=== PATIENT | female | born 1960 | race Caucasian/White ===

== ENCOUNTER 2016-07-24 08:56 | Inpatient (IN) | payer OTHER ==
[~2016-07-24] VITALS: Ht 170.2 cm; Wt 81.0 kg
[2016-07-24] VITALS (10 sets, daily range): BP systolic 96–137; BP diastolic 42–92; PULSE 90–120; RESP 16–20; O2SAT 90–99
[~2016-07-24 08:56] MED LIST: Rocuronium 10 mg/mL 5 mL Inj ONE
--- NOTE | 2016-07-24 09:03 | ED.REPORT ---
HPI-Stroke / CVA Jul 24, 2016 ED Provider: Peggy Alvarez MD This is a 56 year old female with a history of anxiety, chronic back pain, and arthritis presenting to the emergency department via EMS due to gradual onset of decreased level of consciousness that began 24 hours ago. Spouse reports that patient has been "slower" recently and was stumbling to walk which began yesterday morning. Yesterday morning, she went to the restroom and sustained a ground level fall while striking head. This was followed by episodes of urinary incontinence yesterday which is abnormal, per spouse. She was not communicating normally with him today. Pt had increasingly decreased level of consciousness today, her spouse then called emergency services. En route, pt was tachycardic at a rate of 110 and blood sugar 117. PCP Dr. Eli. On further discussion with pt's children present in the room at 11:08, they indicate that one of her sons is a drug dealer and that it is very well possible that the patient has been using illicit drugs recently. They are concerned that mom may have overdosed today and drug use is not a surprise to them at this time, particularly since the patient exhibits frequent episodes of decreased level of consciousness that is associated with "twitching." They add that she often takes excessive amounts of her prescribed gabapentin, she at times takes 3600 mg gabapentin at one time, and takes that dose a number of times a day. Nursing Notes Stated Complaint: DECREASED LOC Chief Complaint: Critical Care/Intubated Nursing Notes Reviewed: Yes Allergies: Coded Allergies: No Known Allergies (Verified , 04/12/06) Scheduled Clonidine (Clonidine) 0.3 Mg Tablet 0.3 MG PO TID (Reported) Gabapentin (Gabapentin) 600 Mg Tablet 1,800 MG PO HS (Reported) Ketoconazole (Ketoconazole) 15 Gm Cream..g. 15 GM TP BID (Reported) Meloxicam (Meloxicam) 15 Mg Tablet 15 MG PO DAILY (Reported) Terbinafine (Lamisil) 250 Mg Tablet 250 MG PO DAILY (Reported) Triamcinolone Acet (Triamcinolone Acetonide Cream) 1 Applic/0.25 Gm Cr 1 APPLIC EXT BID (Reported) Triamterene/HCTZ 37.5-25 mg (Triamterene/HCTZ 37.5-25 mg) 1 Each Capsule 1 CAPSULE PO DAILY (Reported) Venlafaxine (Venlafaxine) 75 Mg Tablet 75 MG PO BID (Reported) Scheduled PRN Cyclobenzaprine (Cyclobenzaprine) 10 Mg Tablet 10 MG PO HS PRN PRN Spasm ( Reported) Ibuprofen (Ibuprofen) 200 Mg Capsule 200 MG PO DAILY PRN PRN For Pain (Reported ) General Time Seen by Provider: 09:00 Chief Complaint Mental status change Hx Obtained From: Patient Arrived By: Ambulance Time last known well Unknown Sudden in Onset?: Yes Symptom Duration: Since onset Progression Since Onset: Gradually worsening Pertinent Negative: Pt denies other symptoms Recent Healthcare: No recent doctor visit, No recent hospitalization Similar Sx Previous: No Risk Factors Risk Notes: Increasing weakness in the last couple of hours followed by a ground level fall and striking head. Onset of symptoms is unclear, not a TPA candidate at this time. )( TPA Administration/Criteria Stroke Thrombolytic Therapy : TPA Considered: Yes Neurologist Contacted: No TPA Administered Intravenously: No, not indicated Exclusion Criteria: Sig head trauma / 90 days [place] Coma Score > Age 5 Eye Opening: Open to verbal (3) Verbal Response: Confused (4) Motor Response: Obeys commands (6) [place] Coma Score: 13 Past Medical History Past Medical History Anxiety Arthritis Chronic back pain Ambulatory Status Independent Review of Systems Unable to Obtain ROS Patient condition (ROS limited) Constitutional: Denies: Chills, Fever GI: Denies: Abdominal pain, Nausea, Vomiting Neurologic: Reports: Bladder dysfunction, Change LOC, Denies: Headache Physical Exam Initial Vital Signs Vital Signs (First) Date Time Temp Pulse Resp B/P Pulse Ox O2 Delivery O2 Flow Rate FiO2 07/24/16 09:02 38.2 105 18 109/51 90 Nasal Cannula 6 - Initial VS: Reviewed Alertness: Positive: Responds to pain stimuli Acutely ill appearing Head / Eyes: Normocephalic Neck: No meningismus, Full range of motion Neck Vascular: Positive: JVD mild (to about 6 cm ) Respiratory / Chest: Breath sounds NL, Breath sounds = bilat, No respiratory distress, No rales, No rhonchi, No wheezing Heart Rate / Rhythm: Positive: Tachycardia Heart Sounds / Murmur: Positive: Systolic murmur present.. (III/) Mental Status: Positive: Responds to painful stim Decreased mental status - GCS 13 Abdomen: Soft Significant pain affect behavior when palpated along left side and LLQ, not in CVA area on either side. Lower Extremity / Pelvis / MS: Vascular intact Bruising to lower right leg that appear 1-2 days old. Skin: Warm, Dry Hyperdynamic. Scatterred bruises in various stages to arms. No track torres. Back: Inspection NL No skin break down on back or buttocks Rectum / Perineum: No gross blood, No discharge Soft brown stool Guaiac positive Interpretation & Diagnostics Interpretation & Diagnostics: Urine dip + methamphetamine + opiates + methadone + amphetamines Blood Gas Report pH 7.147 pCO2 37 pO2 85.7 cHCO3 12.2 cBase -15.[address] IMPRESSION: 1. No acute intracranial disease process. 2. Complete opacification of the right maxillary sinus which could be inflammatory or neoplastic. Dictated by: Sheyla Chinchilla MD, PhD on 07/24/2016 at 9:18 Approved by: Sheyla Chinchilla MD, PhD on 07/24/2016 at 9:22 ABDOMEN/PELVIS CT IMPRESSION: 1. Severe bilateral lower lobe pneumonia. 2. Distended distal small bowel loops, suggestive of gastroenteritis. 3. Thickening of the transverse, descending, and sigmoid colon, with differential considerations including ischemia, infection, and inflammation. 4. Fecal impaction within the rectum. 5. Proctitis. 6. Normal appendix. 7. Findings suggestive of pancreatitis; recommend correlation with laboratory testing. 8. Nonobstructing left nephrolith. 9. Moderately distended gallbladder. If there is clinical evidence for cholecystitis, ultrasound is recommended for further assessment. Dictated by: Ambreen Patel M.D. on 07/24/2016 at 11:04 Approved by: Ambreen Patel M.D. on 07/24/2016 at 11:11 CHEST X-RAY IMPRESSION: Suspect bilateral lower lobe pneumonia. Dictated by: Ana Cristina Manjarrez M.D. on 07/24/2016 at 11:00 Approved by: Ana Cristina Manjarrez M.D. on 07/24/2016 at 11:02 Lab Results Interpretation Result Diagram: 07/25/16 0520 07/25/16 0520 Test 07/24/16 09:00 07/24/16 09:30 07/24/16 10:39 Pro-B-Type Natriuretic Peptide 4866pg/mL (0-249) Lipase 1274U/L (13-60) Procalcitonin 3.32ng/mL (0.00-0.08) Salicylates Level < 3.0ug/mL (30-250) Acetaminophen Level < 15.0ug/mL Rx (10-25) Alcohols < 10mg/dL (0-10) Urine Color Dark yellow (YELLOW) Urine Appearance Clear (CLEAR,HAZY) Urine pH 5.0 (5.0-8.0) Urine Specific Rhine 1.030 (1.003-1.035) Urine Protein 30mg/dL (NEG,TRACE) Urine Glucose (UA) Negativemg/dL (NEGATIVE) Urine Ketones Negativemg/dL (NEGATIVE) Urine Occult Blood Small (NEGATIVE) Urine Nitrite Negative (NEGATIVE) Urine Bilirubin Negative (NEGATIVE) Urine Urobilinogen Normalmg/dL (NORMAL) Urine Leukocyte Esterase Negative (NEGATIVE) Urine RBC 0-2/hpf (0-2) Urine WBC 0-5/hpf (0-5) Urine Epithelial Cells Occasional/hpf (NONE-MOD) Urine Crystals Amorphous urates (NONE Urine Bacteria Few/hpf (NONE-FEW) Urine Hyaline Casts None/lpf (NONE) Urine Granular Casts None seen (NONE SEEN) Urine Waxy Casts None seen (NONE SEEN) Urine Red Blood Cell Casts None seen (NONE SEEN) Urine White Blood Cell Casts None seen (NONE SEEN) Urine Mucus None seen (None Seen) Urine Trichomonas None seen (NONE SEEN) Urine Yeast None (NONE SEEN) Urinalysis Comment None Urine Culture Reflexed Not indicated Urine Random Creatinine 255mg/dL (15-278) Urine Random Total Protein 97mg/dL (0-15) Urine Random Sodium 58mEq/L Lactic Acid Level 1.3mmol/L (0.4-2.0) CSF Appearance Clear (CLEAR) CSF Color Colorless (COLORLESS) CSF WBC 0/mm3 (0-5) CSF RBC 92/mm3 CSF Mononuclear WBCs % CSF Polynuclear WBCs % CSF Other Cells CSF Glucose 67mg/dL (45-90) CSF Total Protein 40mg/dL (15-45) ECG Interpretation ECG Interpretation: Sinus tachycardia at a rate of 110 In light of potassium of 7.7, no peaked t-waves, no wided QRS Time: 09:37 Interpreted by: ED physician Procedures Central Line Placement Central Line Placement Note: Central line appropriately placed on x-ray. No pneumothorax Time: 10:06 Procedure Performed by: ED physician Consent / Setup / Site Prep: No consent - emergent, Oxygen administered, Pulse oximeter applied, backend developer applied, Hand hygiene observed, Standard surgical scrub, Max barrier precaution, Sterile drapes applied, Position Trendelenburg Side / Location / Ultrasound: Ultrasound assisted Post-Procedure / Complications: Antibiotic oint applied, Dressing placed, Condition improved, Tolerated procedure well, Patient stable Lumbar Puncture Text / Dict Note: Opening presure 24 mm water Grossly bloody tap with repositioning, obviously CSF By tube 4 the CSF is completely clear Time: 09:54 Procedure Performed by: ED physician Consent / Setup / Site Prep: No consent - emergent, Hand hygiene observed, Stand sterile technique, Sterile drapes applied Skin Preparation Agent: Betadine Post-Procedure / Complications: Antibiotic oint applied, Dressing applied, No complications, Tolerated procedure well, Patient stable Re-Eval/Medical Decision Med Decision/Clinical Course Presents after at least 24 hours of increasing weakness and altered mental status. This morning was so altered that her felt was appropriate for her to go to the hospital despite saying she did not want to. She fell yesterday and hit her head in the bathroom. Was initially called as a code stroke, clearly not an acute ischemic stroke. Initial concern was for severe sepsis. Fluids antibiotics lines cultures etc. all ordered. CT scan of the brain shows no acute masses bleeds or strokes. Does suggest right maxillary complete opacification could be a source of her sepsis, lumbar puncture is done. On physical exam she does not note any pain when asked directly however she groans with pain with palpation of the left lower quadrant. CT scan of the abdomen will be ordered. Antibiotics started in the form of Zosyn ceftriaxone and azithromycin. Labs returned with acute renal failure and hyperkalemia at 7.7. At this point she is beginning to have runs of SVT with concern for runs of V. tach. Also remains quite hyporeflexive and strong concern for possibility of seizure. 2 mg of Ativan is at the bedside in case and Keppra 1500 mg is given IV. The acute hyperkalemia she is given 10 units of insulin an amp of D50 and amp of calcium chloride 2 A of bicarbonate. Clearly has a metabolic acidosis on her ABG so a bicarbonate drip is also started. Blood pressure is currently stable in the 124/70 range. Intermittent sinus tachycardia at 100 going up to a supraventricular with concerns for actual V. tach up into the 200 range. She is loaded with 150 of IV amiodarone. By the fifth liter of fluid we will switch from normal saline to LR. She is making only small amounts of urine was sent to the lab and does not show any evidence of infection. Urine tox does suggest opiates and methamphetamine. CK has been ordered to see if rhabdomyolysis might be the cause of her acute renal failure. At this point we will continue to aggressively treat severe sepsis source unclear. Central line has been placed. Elevated potassium, given insulin, glucose, calcium, bicarb Re-Evaluation/Progress #1: Time of Eval: 09:38 Re-Evaluation/Progress Note: Discussed patient care with spouse who is now present in the room. Discussed need for admission, all questions addressed. Re-Evaluation/Progress #2: Time of Eval: 09:54 Re-Evaluation/Progress Note: Lumbar puncture procedure Re-Evaluation/Progress #3: Time of Eval: 10:06 Re-Evaluation/Progress Note: Central line procedure Re-Evaluation/Progress #4: Time of Eval: 11:02 Re-Evaluation/Progress Note: Discussed patient care with family members now present in the room. Consultation #1: Referral / Consult Name: Bobby Cope DO Consulted With: Nephrology Call Returned at: 10:15 Note: Consulted on use of IV contrast for abd CT. He recommends against IV contrast at this time. Consultation #2: Referral / Consult Name: Maria Luisa Jauregui MD Consulted With: Nephrology Call Returned at: 10:52 Support Services Specialist: Will see patient, Agrees with eval, Agrees with plan Note: Will consult and requests renal ultrasound Consultation #3: Referral / Consult Name: Al Del Rosario MD Consulted With: Hospitalist Call Returned at: 10:53 Support Services Specialist: Accepts admit Consultation #4: Call Returned at: 11:14 Note: Consult with toxicology, do not expect severe toxicity, mostly sedeation even with chronic overdoses Counseled Regarding: Diagnosis, Lab results, Need for follow-up, Need for admission Patient Discharge & Departure Impression: Primary Impression: Severe sepsis Additional Impressions: Hyperkalemia Acute renal failure Acute renal failure type: unspecified Qualified Code: N17.9 - Acute kidney failure, unspecified Cardiac arrhythmia Arrhythmia type: ventricular tachycardia Qualified Code: I47.2 - Ventricular tachycardia GI bleed GI bleed type/associated pathology: unspecified gastrointestinal hemorrhage type Qualified Code: K92.2 - Gastrointestinal hemorrhage, unspecified Disposition: ADMITTED TO HOSPITAL Discharge Condition All VS Reviewed: Yes Condition: Stable Referrals: James Eli MD (PCP) Alyssa Duarte MD (Family) Crit Care Except Billable Proc Time Spent: 30-74 minutes Services Performed: Patient management by me, Time spent at bedside, Reviewing test results, Reviewing imaging, Discussing patient care, Documentation in record, Time with fam/surrogate Scribe Attestation Portions of this note were transcribed by Therese Gilman. I, Dr. Alavrez personally performed the history, physical exam and medical decision-making; I reviewed and confirmed the accuracy of the information in the transcribed note. Signed by: niesha Chaudhary. 07/24/2016, 18:00. copies to: James Eli MD, Shawna L MD Jul 24, 2016 09:03 THERESE GILMAN Jul 24, 2016 09:10 Procedure Performed by: ED physician Consent / Setup / Site Prep: No consent - emergent, Hand hygiene observed, Stand sterile technique, Sterile drapes applied Skin Preparation Agent: Betadine Post-Procedure / Complications: Antibiotic oint applied, Dressing applied, No complications, Tolerated procedure well, Patient stable Re-Eval/Medical Decision Med Decision/Clinical Course Presents after at least 24 hours of increasing weakness and altered mental status. This morning was so altered that her felt was appropriate for her to go to the hospital despite saying she did not want to. She fell yesterday and hit her head in the bathroom. Was initially called as a code stroke, clearly not an acute ischemic stroke. Initial concern was for severe sepsis. Fluids antibiotics lines cultures etc. all ordered. CT scan of the brain shows no acute masses bleeds or strokes. Does suggest right maxillary complete opacification could be a source of her sepsis, lumbar puncture is done. On physical exam she does not note any pain when asked directly however she groans with pain with palpation of the left lower quadrant. CT scan of the abdomen will be ordered. Antibiotics started in the form of Zosyn ceftriaxone and azithromycin. Labs returned with acute renal failure and hyperkalemia at 7.7. At this point she is beginning to have runs of SVT with concern for runs of V. tach. Also remains quite hyporeflexive and strong concern for possibility of seizure. 2 mg of Ativan is at the bedside in case and Keppra 1500 mg is given IV. The acute hyperkalemia she is given 10 units of insulin an amp of D50 and amp of calcium chloride 2 A of bicarbonate. Clearly has a metabolic acidosis on her ABG so a bicarbonate drip is also started. Blood pressure is currently stable in the 124/70 range. Intermittent sinus tachycardia at 100 going up to a supraventricular with concerns for actual V. tach up into the 200 range. She is loaded with 150 of IV amiodarone. By the fifth liter of fluid we will switch from normal saline to LR. She is making only small amounts of urine was sent to the lab and does not show any evidence of infection. Urine tox does suggest opiates and methamphetamine. CK has been ordered to see if rhabdomyolysis might be the cause of her acute renal failure. At this point we will continue to aggressively treat severe sepsis source unclear. Central line has been placed. Elevated potassium, given insulin, glucose, calcium, bicarb Re-Evaluation/Progress #1: Time of Eval: 09:38 Re-Evaluation/Progress Note: Discussed patient care with spouse who is now present in the room. Discussed need for admission, all questions addressed. Re-Evaluation/Progress #2: Time of Eval: 09:54 Re-Evaluation/Progress Note: Lumbar puncture procedure Re-Evaluation/Progress #3: Time of Eval: 10:06 Re-Evaluation/Progress Note: Central line procedure Re-Evaluation/Progress #4: Time of Eval: 11:02 Re-Evaluation/Progress Note: Discussed patient care with family members now present in the room. Consultation #1: Referral / Consult Name: Bobby Cope DO Consulted With: Nephrology Call Returned at: 10:15 Note: Consulted on use of IV contrast for abd CT. He recommends against IV contrast at this time. Consultation #2: Referral / Consult Name: Maria Luisa Jauregui MD Consulted With: Nephrology Call Returned at: 10:52 Support Services Specialist: Will see patient, Agrees with eval, Agrees with plan Note: Will consult and requests renal ultrasound Consultation #3: Referral / Consult Name: Al Del Rosario MD Consulted With: Hospitalist Call Returned at: 10:53 Support Services Specialist: Accepts admit Consultation #4: Call Returned at: 11:14 Note: Consult with toxicology, do not expect severe toxicity, mostly sedeation even with chronic overdoses Counseled Regarding: Diagnosis, Lab results, Need for follow-up, Need for admission Patient Discharge & Departure Impression: Primary Impression: Severe sepsis Additional Impressions: Hyperkalemia Acute renal failure Acute renal failure type: unspecified Qualified Code: N17.9 - Acute kidney failure, unspecified Cardiac arrhythmia Arrhythmia type: ventricular tachycardia Qualified Code: I47.2 - Ventricular tachycardia GI bleed GI bleed type/associated pathology: unspecified gastrointestinal hemorrhage type Qualified Code: K92.2 - Gastrointestinal hemorrhage, unspecified Disposition: ADMITTED TO HOSPITAL Discharge Condition All VS Reviewed: Yes Condition: Stable Referrals: James Eli MD (PCP) Alyssa Duarte MD (Family) Crit Care Except Billable Proc Time Spent: 30-74 minutes Services Performed: Patient management by me, Time spent at bedside, Reviewing test results, Reviewing imaging, Discussing patient care, Documentation in record, Time with fam/surrogate Scribe Attestation Portions of this note were transcribed by Therese Gilman. I, Dr. Alvarez personally performed the history, physical exam and medical decision-making; I reviewed and confirmed the accuracy of the information in the transcribed note. Signed by: niesha Chaudhary. 07/24/2016, 18:00. copies to: James Eli MD, Shawna L MD Jul 24, 2016 09:03 THERESE GILMAN Jul 24, 2016 09:10
[2016-07-24] MEDS ORDERED: 0.9% Sodium Chloride 1,000 ML IV ONE ×3 (09:06→17:30)
[2016-07-24 09:10] LABS: BASOPHILS % (AUTO) 0.1 % (0-3); EOSINOPHILS % (AUTO) 0 % (0-5); Mean Corpuscular Hemoglobin 31.8 pg (27.0-35.0); Mean Corpuscular Volume 93.3 fL (81-100); NEUTROPHILS % (AUTO) 85.8 % (40-74); Platelet Count 224 bil/L (150-400)
[2016-07-24] MEDS ORDERED: Azithromycin Inj 500 MG in Dextrose 5% w/Vial Mate 250 ML IV ONE (09:10)
[2016-07-24] MEDS ORDERED: cefTRIAXone Inj 2,000 MG in Dextrose 5% Minibag Plus 50 ML IV ONE (09:10)
--- NOTE | 2016-07-24 09:24 | DRSVH ---
PROCEDURE: CT BRAIN WITHOUT CONTRAST ([id number]) INDICATIONS: Decreased level of consciousness. TECHNIQUE: Noncontrast 4.5 mm thick angled axial sections acquired from the foramen magnum to the vertex, with c oronal reformats. COMPARISON: None. FINDINGS: Image quality: Excellent. CSF spaces: Basal cisterns are patent. No extra-axial fluid collections. Ventricles are normal in size and shape. Brain: No midline shift. No intracranial masses or hemorrhage. Styles-white matter interface is norm al. Multiple dural calcifications are incidentally noted. Skull and face: Calvarium and visualized facial bones are intact, without suspicious lesions. Sinuses: The right maxillary sinus is completely opacified.. IMPRESSION: 1. No acute intracranial disease process. 2. Complete opacification of the right maxillary sinus which could be inflammatory or neoplastic. Dictated by: Sheyla Chinchilla MD, PhD on 07/24/2016 at 9:18 Approved by: Sheyla Chinchilla MD, PhD on 07/24/2016 at 9:22
--- NOTE | 2016-07-24 09:36 | ABG ---
DateTimeAnalyzed 09:32:00 -_ pH ____7.147 - 7.350 7.450 pCO2 ___36.7__ -mmHg 35.0 45.0 pO2 ___85.7__ -mmHg 69.0 116 HCO3- ___12.2__ -mmol/L 22.0 26.0 ABE __-15.6__ -mmol/L -2.0 2.0 tHb ___10.2__ -g/dL O2Hb ___92.1__ -% COHb ____0.7__ -% MetHb ____1.4__ -% sO2 ___94.1__ -% FIO2 ___36.0__ -% Drawn By jmw - Date/Time Notified____ 09:35:00 -_ Liter_Flow ____4.0__ -L/min Oxygen Device 1 __CANNULA - Notified By jmw - Notified Whom DR LAURSEN - B 758 -mmHg tO2 ___13.4__ -Vol% Saw test _Positive -
[2016-07-24] MEDS ORDERED: Piperacillin-Tazo 3.375 Gm Inj 3.375 GM in Dextrose 5% Minibag Plus 50 ML IV ONE (09:50)
[2016-07-24] MEDS ORDERED: Sodium Bicarb (50 mEq) 8.4% 1 mEq/mL 50 mL Syringe ONE (10:02)
[2016-07-24 10:03] LABS: APPEARANCE,URINE CLEAR (CLEAR,HAZY); COLOR,URINE DARK YELLOW (YELLOW)
[2016-07-24 10:04] LABS: OCCULT BLOOD,URINE SMALL (NEGATIVE); UROBILINOGEN,URINE NORMAL (NORMAL)
[2016-07-24] MEDS ORDERED: Insulin Human REGular-Omnicell 100 Unit/mL ONE (10:04)
[2016-07-24] MEDS ORDERED: Calcium Chl 10% 1 Gm/10 mL Syringe ONE (10:05)
[2016-07-24] MEDS ORDERED: Sodium Bicarb (50 mEq) 8.4% 1 mEq/mL 50 mL Syringe IVPUSH ONE (10:10)
[2016-07-24] MEDS ORDERED: Calcium Chloride 10% (Gm) 1 Gm/10 mL Inj IVPUSH PRN (10:10)
[2016-07-24] MEDS ORDERED: Insulin Human REGular-Omnicell 100 Unit/mL IV ONE (10:10)
[2016-07-24] MEDS ORDERED: Sodium Bicarb 8.4% Inj 150 MEQ in Dextrose 5% 1,000 ML IV ONE (10:25)
[2016-07-24] MEDS ORDERED: levETIRAcetam Inj 1,500 MG in 0.9% Sodium Chloride 100 ML IV ONE (10:25)
[2016-07-24 10:48] LABS: Magnesium 3.3 mg/dL (1.6-2.6)
--- NOTE | 2016-07-24 11:04 | DRSVH ---
PROCEDURE: X-RAY CHEST ONE VIEW, PORTABLE ([id number]) INDICATIONS: dec LOC TECHNIQUE: One view of the chest was acquired. COMPARISON: [facility], CT, CT CHEST W CONTRAST, 11/09/2015, 2:58 PM. [facility], CR, XR CHEST 2VW, 10/02/2015, 16:17. FINDINGS: Surgical changes and devices: None. Lungs and pleura: Bilateral lower lobe infiltrates suspicious for pneumonia. No pleural effusions or pneumothorax. Mediastinum: Mediastinal contours appear normal. Heart size is normal. Bones and chest wall: No suspicious bony lesions. Overlying soft tissues appear unremarkable. IMPRESSION: Suspect bilateral lower lobe pneumonia. Dictated by: Ana Cristina Manjarrez M.D. on 07/24/2016 at 11:00 Approved by: Ana Cristina Manjarrez M.D. on 07/24/2016 at 11:02
[2016-07-24 11:07] LABS: APPEARANCE,CSF CLEAR (CLEAR); COLOR,CSF COLORLESS (COLORLESS); WHITE BLOOD CELL,CSF 0 /mm3 (0-5)
--- NOTE | 2016-07-24 11:13 | DRSVH ---
PROCEDURE: CT ABDOMEN AND PELVIS WITHOUT CONTRAST ([id number]) INDICATIONS: sepsis, Right side belly pain TECHNIQUE: Noncontrast 5 mm thick sections acquired from the diaphragms to the symphysis. 5 mm coronal and sagi ttal reformats were then performed. For radiation dose reduction, the following was used: automated exposure control, adjustment of mA and/or kV according to patient size. COMPARISON: None. FINDINGS: Image quality: Partially degraded by motion artifact. ABDOMEN: Lung bases: Severer deep and bilateral lower lobe air space opacity is present. Solid organs: Liver and spleen are normal in size. Gallbladder is moderately distended. Pancreatic tail appears ill-defined with surrounding fat stranding, suggestive of pancreatitis. No adrenal nodul es. Kidneys are normal in size, without hydronephrosis. There is a nonobstructing 5 mm diameter calc ulus within the left interpolar kidney. Peritoneum and bowel: Stoma is nondistended. There are several moderately distended loops of mid and distal small bowel. There appears to be thickening of the distal transverse colon, splenic flexure, descending, and proximal sigmoid colon. Mild fat stranding surrounds the descending colon. There is a large amount of stool within the rectum. Mild thickening of the rectum. Moderate fat stranding withi n the perirectal mesocolon. No free fluid or air. High density material within the appendix is prese nt. Nodes and vessels: No retroperitoneal or mesenteric adenopathy by size criteria. Aorta and inferior vena cava are normal in caliber. Miscellaneous: No ventral hernias. PELVIS: Genitourinary: A Griffin catheter is present within the urinary bladder. Miscellaneous: No inguinal hernias or adenopathy. Bones: No suspicious bony lesions. No vertebral body compression fractures. IMPRESSION: 1. Severe bilateral lower lobe pneumonia. 2. Distended distal small bowel loops, suggestive of gastroenteritis. 3. Thickening of the transverse, descending, and sigmoid colon, with differential considerations incl uding ischemia, infection, and inflammation. 4. Fecal impaction within the rectum. 5. Proctitis. 6. Normal appendix. 7. Findings suggestive of pancreatitis; recommend correlation with laboratory testing. 8. Nonobstructing left nephrolith. 9. Moderately distended gallbladder. If there is clinical evidence for cholecystitis, ultrasound is r ecommended for further assessment. Dictated by: Ambreen Patel M.D. on 07/24/2016 at 11:04 Approved by: Ambreen Patel M.D. on 07/24/2016 at 11:11
[2016-07-24] MEDS ORDERED: Ondansetron 2 mg/mL 2 mL Inj IVPUSH PRN (11:35)
[2016-07-24] MEDS: 0.9% Sodium Chloride 1,000 ML IV SCH (12:23)
[2016-07-24] MEDS: Norepineph 8,000 mCg/250 mL NS 8,000 MCG in IV Premix 1 EACH IV SCH (13:18)
--- NOTE | 2016-07-24 13:25 | PCM.HPMED ---
Subjective Date of Service Jul 24, 2016 Primary Provider: Admitting Physician: Al Del Rosario MD Primary Care Physician: James Eli MD Attending Physician: Al Del Rosario MD Chief Complaint: Altered mental status History of Present Illness: Patient is a 56 year old female with a history of HTN, anxiety and osteoarthritis with chronic narcotic use. She presented to [facility] on 07/24/16 via EMS from home. Patient is obtunded at time of H&P so history is collected from the patient's and daughter. Patient was noted to not be herself starting Sunday (07/21/16) by both her and her daughter. The daughter stated she talked to the patient on the phone and she was confused and slurring her words. The reports that the patient has been stressed out at home because they are moving. She has been doing a lot of packing and preparing for a garage sale. Sunday morning was going to be the garage sale and her got her up to prepare and a short time later found her slumped over in the shower. He put her back to bed and she slept the rest of the day. She was awake somewhat on Sunday morning but was not talking right and seemed confused. When she slept she sounded as though she were wheezing and was snoring quite loudly. When she was not improved Sunday morning, the called 911. She has not had any of her regular meds since Sunday. She has not had any food or drink since Sunday. Prior to Sunday she is reported to have been in her usual state of health. The patient's works nights and is unaware of her activities of late. The patient's daughter reports that the patient likes to get high. The patient has been abusing her gabapentin which makes her speech slurred, she becomes tremulous and is unsteady on her feet, and she gets confused. There is also reported heroin use and it seems like she may be obtaining the illegal drugs from her son who is a known drug dealer. She also may be consuming at least a bottle of wine on a daily basis. In the ED the patient is febrile (38.2) with a heart rate of 105, respiratory rate 18, blood pressure 109/51 and O2 saturation of 90% on 6L. Labs are remarkable for WBC 11.1, potassium 7.7, bicarb 12, BUN 143, creatinine 11, magnesium 3.3, procalcitonin 3.3, lipase 1274, CPK 1947. ABG showed pH 7.14, pCO2 36.7, pO2 85.7, HCO3 12.2. Central line was placed and fluid resuscitation started. Case discussed with Dr. Alvarez and patient admitted to ICU for further management of this critical illness. Review of Systems: Complete ROS could not be obtained as the patient was too obtunded to give an accurate history. Allergies Coded Allergies: No Known Allergies (Verified , 04/12/06) Home Medications From [facility] in [place] dated 07/24/16: Ketoconazole 2% topical cream applied BID to affected toenails Clonidine 0.3 mg TID Triamterene-HCTZ 37.5/25 mg daily Gabapentin 1800 mg HS Meloxicam 15 mg daily Venlafaxine 75 mg BID Lamisil 250 mg daily Triamcinolone 0.1% topical cream applied BID to affected skin Cyclobenzaprine 10 mg HS PRN spasm Ibuprofen 200mg PRN pain PMH Depression with anxiety Hypertension Chronic pain in right hip, right foot, and other joints throughout the body with past opiate habituation Degenerative disc disease - L5 HNP facet arthritis with neurocompression Thyroid nodules Toenail fungus Allergic rhinitis Surgical History Right bunionectomy - 2005 Family History Mother of complications of an unknown liver disease No known family history of kidney disease Social History Hx Alcohol Use: Yes (Bottle of wine daily) Hx Substance Use: Yes (Heroin, gabapentin) Hx Tobacco Use: No Smoking Status: Never Smoker Living Arrangement: with Family Exam Vital Signs Vital Sign - Last Date Time Temp Pulse Resp B/P Pulse Ox O2 Delivery O2 Flow Rate FiO2 07/24/16 12:12 38.2 90 19 113/54 94 Nasal Cannula 4 Exam Obtunded, laying in ICU bed snoring with nasal cannula in place Head atraumatic, normocephalic Mucus membranes dry, no oral thrush observed No cervical lymphadenopathy, neck supple, nontender, right IJ in place No JVD noted Cardiac tones tachycardic with regular rhythm and no murmur appreciated Lungs coarse sounding throughout with expiratory wheezes heard anteriorly No abdominal tenderness, non-distended, hypoactive bowel tones, soft Griffin present Radial pulses normal and equivalent bilaterally, dorsalis pedis pulses normal and equivalent bilaterally No cyanosis, clubbing or edema No ulcerations/open wounds; bruising noted on the lower extremities Neurological status could not be evaluated as patient obtunded Psychiatric status could not be evaluated as patient obtunded Lab and Diagnostics Result Diagram: 07/24/16 0900 07/24/16 0900 X-Rays, CTs and MRIs PROCEDURE: CT ABDOMEN AND PELVIS WITHOUT CONTRAST IMPRESSION: 1. Severe bilateral lower lobe pneumonia. 2. Distended distal small bowel loops, suggestive of gastroenteritis. 3. Thickening of the transverse, descending, and sigmoid colon, with differential considerations including ischemia, infection, and inflammation. 4. Fecal impaction within the rectum. 5. Proctitis. 6. Normal appendix. 7. Findings suggestive of pancreatitis; recommend correlation with laboratory testing. 8. Nonobstructing left nephrolith. 9. Moderately distended gallbladder. If there is clinical evidence for cholecystitis, ultrasound is recommended for further assessment. Dictated by: Ambreen Patel M.D. on 07/24/2016 at 11:04 PROCEDURE: CT BRAIN WITHOUT CONTRAST IMPRESSION: 1. No acute intracranial disease process. 2. Complete opacification of the right maxillary sinus which could be inflammatory or neoplastic. Dictated by: Sheyla Chinchilla MD, PhD on 07/24/2016 at 9:18 PROCEDURE: X-RAY CHEST ONE VIEW, PORTABLE IMPRESSION: Suspect bilateral lower lobe pneumonia. Dictated by: Ana Cristina Manjarrez M.D. on 07/24/2016 at 11:00 12-lead ECG Rate 110 QTc 433 Sinus tachycardia with no acute ischemic changes Assessment & Plan Patient is a 56 year old female with a history of HTN, anxiety and osteoarthritis with chronic narcotic use. She presented to [facility] on 07/24/16 via EMS with altered mental status. Found to have hyperkalemia, pneumonia and an significant kidney injury. Admitted for management of her numerous co- existing conditions to the ICU for what is likely to be a prolonged hospital admission. 1. Severe sepsis, acute, present on admission. - Criteria met: tachycardia (105), fever (38.2), respiratory and possibly GI source, RADHA and encephalopathy and hypotension. - Fluid resuscitation given in the ED. Will continue NS 50 ml/hr as well as a bicarb drip at 100 ml/hr. - Norepinephrine to be used to maintain a MAP >65. - Treat the underlying infections as below. - Continue to monitor CBC, procalcitonin. - Limited echo ordered to evaluate left ventricular function in the setting of this critical illness. 2. Bilateral pneumonia, acute, present on admission. - Zosyn and azithromycin started in the ED. Will continue those at this time ( day 1 of antibiotics). - Viral PCR panel ordered and pending. - Strep pneumo and legionella urine antigens ordered and pending. - Sputum culture ordered and pending. May need to ask respiratory therapy to suction a good sputum sample. - MRSA screening ordered and pending. - O2 supplementation to keep O2 saturations 92-96%. - DuoNeb available QID. Albuterol neb available Q2 PRN. - Low threshold for intubation due to concerns that patient cannot adequately protect her airway. 3. Acute kidney injury, present on admission. - IV fluids initiated in the ED. Continue as above in #1. - Ethylene glycol and methanol levels are ordered and pending. - Dr. Jeff of nephrology has been consulted and we appreciate her input. - Continue to monitor BMP. 4. Hyperkalemia, acute, present on admission. - Patient received insulin and glucose, albuterol, calcium gluconate, sodium bicarb in the ED with improvement on repeat BMP. - Will continue to monitor BMP and correct as needed. 5. Pancreatitis, acute, present on admission. - BISAP score of 4 conferring >15% risk of mortality. VENETIE IRA-II score 19 with and 11-18% risk of mortality. - IV fluids as above. - Patient NPO. 6. Metabolic and toxic encephalopathy, acute, present on admission. - Concern for toxic ingestion as patient has a history of heroin use, gabapentin misuse. Uncertain what else she might have consumed. - Urine tox in the ED positive for meth and heroin. - Gabapentin, ethylene glycol and methanol levels pending. - Nephrology evaluating for possible dialysis. - IV fluids as above. 7. Anion gap metabolic acidosis, acute, present on admission. - Secondary to sepsis, RADHA. - Continue IV fluids and correction of underlying problems. - ABG PRN for further monitoring. 8. Elevated transaminases, acute, present on admission. - Uncertain etiology. Concern for hepatitis given patient's illicit drug use. - Hepatitis panel ordered and pending. - Continue to monitor CMP. 9. Rhabdomyolysis, acute, present on admission. - CPK increasing with subsequent lab measurements. - Patient has essentially been in bed last 48-72 hours with fall on Sunday in the shower. - IV hydration ongoing as above. - Continue to monitor CPK level. 10. Hypertension, chronic, presume stable. - Patient has been hypotensive so will hold home medications. Home regimen includes clonidine 0.3 mg TID and triamterene-HCTZ 37.5/25 mg daily. 11. Depression with anxiety, chronic, presume stable. - Will hold home venlafaxine 75 mg daily at this time as patient is in CCU and NPO. 12. Chronic pain syndrome with opiate dependence, presume stable. - History of opiate habituation. Was being tapered down per office notes from Dr. Eli. - Will give no opiates during this admission if it can be avoided, especially while patient obtunded. - Due to kidney injury will also avoid NSAID's. - Could consider use of Tylenol but due to elevated transaminases would give less than 2 grams daily. 13. Alcohol use disorder, chronic. - Reported to ingest at least a bottle of wine daily. - While patient obtunded will give no scheduled benzodiazepines. - Monitor closely for signs of withdrawal and will initiate CIWA if needed. 14. Thyroid nodules, chronic, presume stable. - Recommend continued outpatient follow up. - Will not order TSH/T4 at this time as patient critically ill and this will likely return with low values for all. - Antiemetic available PRN. Patient admitted under inpatient status with expected length of stay greater than 2 midnights for severity of present symptoms, complexities of treatment plan and risk for adverse events. PCP James Eli MD GI Prophylaxis: Proton Pump Inhibitor VTE Prophylaxis: Sub-Q Heparin (Unfractionated) Resuscitation Status: CPR: Attempt Resuscitation Attending Statement The patient was seen and examined together with Dr. Tipton on 07/24/2016 and I agree with the history, exam and plan as outlined in the note above. . copies to: James Eli MD, Jennifer E DO Jul 24, 2016 13:25 Al Del Rosario MD Jul 28, 2016 18:31
--- NOTE | 2016-07-24 13:41 | NUR ---
SPUTUM SAMPLE Sputum sample collected and sent to lab
--- NOTE | 2016-07-24 14:18 | DRSVH ---
PROCEDURE: US RENAL SONOGRAM INDICATIONS: acute renal failure, going to ICU soon TECHNIQUE: Real-time scanning was performed of the kidneys and bladder, with image documentation. COMPARISON: [facility], CT, CT ABD PELVIS WO CON, 07/24/2016, 10:39. FINDINGS: Kidneys: Kidneys are normal in size. Right kidney measures 10.8 cm long; left kidney measures 11.5 cm long. Right renal cortical thickness is 1.9 cm; left renal cortical thickness is 2.2 cm. Renal c ortical echotexture is normal. No hydronephrosis or nephrolithiasis. No suspicious solid mass lesio ns. There is a 3.7 mm nonobstructing stone in the inferior pole of the left kidney. A 2 cm cyst is n oted in the inferior pole of the right kidney Bladder: There is a Griffin catheter in bladder. Bladder is contracted. Miscellaneous: No free pelvic fluid. IMPRESSION: 1. No ultrasound findings to explain acute renal failure. 2. A 3.7 mm nonobstructing stone in the left kidney. No hydronephrosis. 3. A 2 cm cyst in the inferior pole of the right kidney. Dictated by: Ana Cristina Manjarrez M.D. on 07/24/2016 at 14:14 Approved by: Ana Cristina Manjarrez M.D. on 07/24/2016 at 14:16
[2016-07-24] MEDS ORDERED: Sodium Chloride LOK Flush 10 mL Syringe IVFLUSH PRN ×2 (14:35)
[2016-07-24] MEDS ORDERED: KEN25CR EXT (14:37)
[2016-07-24] MEDS ORDERED: TRIA1CAP5 PO (14:37)
[2016-07-24] MEDS ORDERED: TERB250T4 PO (14:37)
[2016-07-24] MEDS ORDERED: CYCL10TA9 PO (14:37)
[2016-07-24] MEDS ORDERED: IBUP200C PO (14:37)
[2016-07-24] MEDS ORDERED: MELO7.5O PO (14:37)
[2016-07-24] MEDS ORDERED: GABA600T2 PO (14:37)
[2016-07-24] MEDS ORDERED: MELO-253 PO (14:37)
[2016-07-24] MEDS ORDERED: VENL75TA3 PO (14:37)
[2016-07-24] MEDS ORDERED: CLON0.3T PO (14:37)
[2016-07-24] MEDS ORDERED: KTC2C15 TP (14:37)
[2016-07-24] MEDS: Sodium Bicarb 8.4% Inj 150 MEQ in Dextrose 5% 1,000 ML IV SCH (14:45)
--- NOTE | 2016-07-24 14:54 | DRSVH ---
PROCEDURE: X-RAY CHEST ONE VIEW, PORTABLE ([id number]) INDICATIONS: post-IJ placement TECHNIQUE: One view of the chest was acquired. COMPARISON: [facility], CR, XR CHEST 1VW (PORTABLE), 07/25/2016, 2:00. [facility], CR, XR CHEST 1VW (PORTABLE), 07/24/2016, 10:20. FINDINGS: Surgical changes and devices: Stable position right IJ CVL and temporary transcutaneous pacer lead pr ojected over the inferior right heart. Lungs and pleura: No pleural effusions or pneumothorax. Left basilar airspace opacity has increased and there is likely a trace left pleural effusion. No pneumothorax. Mediastinum: Mediastinal contours appear normal. Heart size is normal. Bones and chest wall: No suspicious bony lesions. Overlying soft tissues appear unremarkable. IMPRESSION: 1. Right IJ central line is in the expected position. 2. Slight increase in left basilar airspace opacity and trace left pleural effusion. Dictated by: Tex Jean [facility] Interpreted: Ana Cristina Manjarrez MD on 07/24/2016 at 14:53 Transcribed by: ALFIE on 07/24/2016 at 14:54 Approved by: Ana Cristina Manjarrez M.D. on 07/25/2016 at 7:35
--- NOTE | 2016-07-24 15:47 | ABG ---
DateTimeAnalyzed 15:41:00 -_ pH ____7.260 - 7.350 7.450 pCO2 ___44.4__ -mmHg 35.0 45.0 pO2 ___63.6__ -mmHg 69.0 116 HCO3- ___19.3__ -mmol/L 22.0 26.0 ABE ___-7.0__ -mmol/L -2.0 2.0 tHb ___10.9__ -g/dL O2Hb ___88.1__ -% COHb ____1.0__ -% MetHb ____1.2__ -% sO2 ___90.1__ -% FIO2 ___36.0__ -% Drawn By mt - Date/Time Notified____ 15:47:00 -_ Oxygen Device 1 SIMP MASK - Notified By mt - [facility] -__ B 755 -mmHg tO2 ___13.5__ -Vol% Saw test _Positive -
[2016-07-24] MEDS ORDERED: Albuterol-Ipratropium 3 mL Inhalation Solution NEB SCH (16:00)
[2016-07-24] MEDS ORDERED: fentaNYL-PF 50 mCg/mL 2 mL Inj ONE (17:14)
[2016-07-24] MEDS ORDERED: Albuterol 2.5 mg/3 mL Inhalation Solution NEB PRN (17:20)
[2016-07-24] MEDS ORDERED: fentaNYL-PF 50 mCg/mL 2 mL Inj IVPUSH ONE (17:50)
[2016-07-24] MEDS ORDERED: Rocuronium 10 mg/mL 5 mL Inj IVPUSH ONE (17:50)
[2016-07-24] MEDS: Heparin 5,000 Unit/mL Inj SUBQ SCH (17:54)
[2016-07-24] MEDS: fentaNYL 2,500 mCg/250 mL 2,500 MCG in IV Premix 1 EACH IV SCH (17:54)
[2016-07-24] MEDS: Pantoprazole 4 mg/mL 10 mL Inj IVPUSH SCH (17:55)
--- NOTE | 2016-07-24 17:57 | DRSVH ---
PROCEDURE: X-RAY CHEST ONE VIEW, PORTABLE ([id number]) INDICATIONS: SHORTNESS OF BREATH, s/p intubated TECHNIQUE: One view of the chest was acquired. COMPARISON: [facility], CR, XR CHEST 1VW (PORTABLE), 07/24/2016, 14:20. FINDINGS: Surgical changes and devices: The patient is intubated and endotracheal tube is at the level of the c nichole. NG tube is slightly coiled in the gastric fundus. A central venous catheter is projected over the SVC. Lungs and pleura: Patchy opacities are present at the left lung base. Left pleural effusion cannot be excluded. Mediastinum: Mediastinal contours appear normal. Heart size is normal. Bones and chest wall: No suspicious bony lesions. Overlying soft tissues appear unremarkable. IMPRESSION: 1. Endotracheal tube at the norma. Consider retracting the tube 3-4 cm. 2. Left basilar patchy radiopacity suspicious for aspiration/infection. Dictated by: Shira Martin M.D. on 07/24/2016 at 17:54 Approved by: Shira Martin M.D. on 07/24/2016 at 17:55
--- NOTE | 2016-07-24 18:23 | NUR ---
ADMIT TO CCU/INTUBATION Report received from GISELA Dennis in ED. Patient arrived to unit w/ vitals, tele and respiratory status in stable condition. She was unarousable upon arrival. As shift progressed, patient began to require increased oxygen, switching from 4L NC to 6L OxyMask, w/ no improvement in oxygen saturation. Tachyarrhythmias occurred intermittently, w/ HR in 150s, although BP remained WNL. She remained unarousable, opening eyes to sternal rub, but unable to hold attention or keep eyes open. MDs discussed findings with family, and they elected to intubate the patient, rather than wait for patient's condition to worsen, and intubate emergently. Etomidate 20 mg and Rocuronium 50 mg administered, and patient was intubated w/ very little difficulty. Fentanyl gtt started at 25 mcg/hr for sedation. ABGs collected one hour after intubation show much improvement, Dr. Tipton notified. Will continue to monitor vitals, telemetry, respiratory status and sedation needs.
--- NOTE | 2016-07-24 18:23 | ABG ---
DateTimeAnalyzed 18:19:00 -_ pH ____7.444 - 7.350 7.450 pCO2 ___27.8__ -mmHg 35.0 45.0 pO2 ___71.0__ -mmHg 69.0 116 HCO3- ___18.7__ -mmol/L 22.0 26.0 ABE ___-3.9__ -mmol/L -2.0 2.0 tHb ___11.0__ -g/dL O2Hb ___93.7__ -% COHb ____1.1__ -% MetHb ____1.2__ -% sO2 ___95.9__ -% FIO2 ___50.0__ -% PEEP ____5.0__ -cmH2O Set_RR ___20.0__ -b/min Vt __500.0__ -L Drawn By MT - Date/Time Notified____ 18:22:00 -_ Oxygen Device 1 VENTILATOR - Notified By MT - Notified Whom Tipton - B 755 -mmHg tO2 ___14.6__ -Vol% Saw test _Positive -
[2016-07-24] MEDS: Chlorhexidine 0.12% 15 mL Oral Solution MT SCH (19:40)
--- NOTE | 2016-07-24 21:32 | CONS ---
[address] [address] CONSULTATION REPORT PATIENT: ALESSANDRA WOOTEN : 1960 MR#: [id number] ADMIT: 07/24/2016 JOB ID: [id number] DATE OF SERVICE: 07/24/2016 REQUESTING PHYSICIAN: Dr. Al Del Rosario. REASON FOR CONSULTATION: Management of acute kidney injury and hyperkalemia. PRESENT ILLNESS: This is a 56-year-old, lady with significant past medical history of hypertension, anxiety disorder, and osteoarthritis who was brought by the EMS due to worsening altered mental status. The patient now is obtunded. I have gathered history from her and the medical record. Apparently, the patient was in her usual state of health up until Sunday, July 21, 2016, when she was found confused by family members. The symptoms got worse over the weekend. reported that the patient slumped over in the shower and at that time she needed help. She later on slept through the day. The symptom has not improved up until today morning and her decided to call 911 and the patient was brought to the emergency department for further investigation. The reported that she has been taking medication for blood pressure, anxiety and for arthritis. Per records from [facility] in [place] showing that she has been taking meloxicam and ibuprofen for arthritis. He reported that the patient has been overdosing herself with gabapentin. Of note, her son was known as a drug dealer and may have given her illicit drugs. Her is not aware of the patient's using any illicit drugs. According to her , she has no history of suicidal attempt or suicidal ideation. The initial urine tox screen showed positive for methamphetamine, amphetamine, opioids, methadone. Her initial vitals showed a temperature of 38.2, pulse of 105, respiratory rate 18, blood pressure 109/51, O2 sat 90% on nasal cannula 6 L. The patient's initial BMP showed a sodium of 136, potassium of 7.7, chloride of 94, bicarb of 12, BUN of 143, creatinine of 11.11. The patient has no history of kidney disease. The patient received IV fluid resuscitation in the emergency department. Likewise, she was given medical management for the hyperkalemia. The repeat BMP showed potassium of 4.6, chloride of 17, BUN of 124 and creatinine of 8.66. PAST MEDICAL HISTORY: 1. Hypertension. 2. Chronic back pain. 3. Depression with anxiety. 4. Thyroid nodules. 5. Fungal toenails. SURGICAL HISTORY: Status post right bunionectomy in 2005. FAMILY HISTORY: No kidney disease in the family. SOCIAL HISTORY: Positive multiple polysubstance abuse, including heroin, gabapentin, questionable methamphetamine, alcohol abuse. Patient drinks a bottle of wine daily. ALLERGIES: No known drug allergies. MEDICATIONS: 1. Clonidine 0.3 mg t.i.d. 2. Triamterene/hydrochlorothiazide 37.5/25 mg daily. 3. Gabapentin 1800 mg at bedtime. 4. Meloxicam 15 mg daily. 5. Venlafaxine 75 mg b.i.d. 6. Lamisil 250 mg daily. 7. Ibuprofen 200 mg as needed. 8. Cyclobenzaprine 10 mg as needed for spasm. 9. 0.1% triamcinolone topical cream b.i.d. 10. 2% ketoconazole topical cream b.i.d. REVIEW OF SYSTEMS: Unable to obtain. PHYSICAL EXAMINATION: VITALS: Temperature 96.0, pulse 19, respiratory 16, blood pressure 105/57, O2 sats 96% on nasal cannula 4 L/minute. GENERAL APPEARANCE: Unresponsive, obtunded, nasal cannular of 4 L/minute. HEENT: No pallor. No jaundice. No JVD. No lymphadenopathy. No thyroid enlargement. Right triple-lumen in place on the right IJ. HEART: Regular rhythm. Normal S1, S2. Tachycardic. No murmurs, rubs, or gallops. LUNGS: Secretion sounds noted throughout the lungs. No rales. ABDOMEN: Soft, nontender, nondistended. Decreased bowel sounds. EXTREMITY: No significant edema, cyanosis or clubbing of fingers. Multiple bruises noted on the lower extremities. LABORATORY: Sodium 141, potassium 4.6, chloride 102, bicarb 17, BUN 124, creatinine 8.66, glucose 134, serum osmolality 356, calcium 8.1, magnesium 2.5, total CPK 2103, lactate dehydrogenase 576, AST 284, ALT 149, lipase 1274, lactic acid 1.3. DIAGNOSTIC DATA: Kidney sonogram showed 3.7 mm nonobstructing stone in the left kidney, 2 cm cyst in the inferior pole of the right kidney. CT abdomen showed severe bilateral lower lobe pneumonia, distended distal small bowel loops suggestive of gastroenteritis, thickening of the transverse, descending and sigmoid colon, fecal impaction, proctitis, findings suggestive of pancreatitis, nonobstructing left nephrolithiasis, moderately distended gallbladder. ASSESSMENT: 1. Acute kidney injury. 2. Hyperkalemia. 3. Anion gap metabolic acidosis. 4. Elevated serum osmolal gap. 5. Sepsis, could be from multiple sources. 6. Polysubstance abuse including heroin, alcohol, gabapentin abuse, methamphetamine. 7. Acute pancreatitis. 8. Underlying disease of hypertension. 9. History of depression and anxiety disorder. 10. Transaminitis, suspected alcoholic hepatitis. The patient came in with significant kidney dysfunction. We do not have her baseline serum creatinine. She received IV fluids in the emergency department. Repeat BMP showed some improvement of her kidney function as well as electrolyte derangement. Of note, she has had history of NSAID use and polysubstance abuse. In the emergency department, she was found to be hypotensive. Imaging showed severe pneumonia, possible colitis, cholecystitis and pancreatitis. The etiology of acute kidney injury is rather multifactorial including NSAID use, intravascular volume depletion, acute tubular necrosis, sepsis, possible acute interstitial nephritis. Even though there was no history of suicide attempt, I would recommend to rule out ethylene glycol toxicity. Her electrolytes are improving and there is no urgent dialysis indicated at this moment. I will continue aggressive IV fluid replacement, will put her on D5 water and sodium bicarbonate drip at 100 cc/hour plus normal saline at 50 cc/hour. Continue to maintain her mean arterial pressure over 65 mmHg. The patient is now on the IV broad spectrum antibiotics. Will order acute hepatitis panel and HIV. Will recommend echocardiogram, ID consult. I will order serum ethylene glycol, methanol, urine protein, urine creatinine, urine sodium. We will repeat another set of ABGs. Thank you for the consultation. We will monitor along with you. MTDD
[2016-07-24] MEDS: Albuterol-Ipratropium 3 mL Inhalation Solution NEB SCH (21:34)
[2016-07-24] MEDS: Piperacillin-Tazo 3.375 Gm Inj 3.375 GM in Dextrose 5% Minibag Plus 50 ML IV SCH (22:11)
[2016-07-25] VITALS (14 sets, daily range): BP systolic 115–155; BP diastolic 71–85; PULSE 108–130; RESP 15–20; O2SAT 96–100
[2016-07-25] MEDS: Heparin 5,000 Unit/mL Inj SUBQ SCH ×4 (00:30→23:56)
[2016-07-25] MEDS: 0.9% Sodium Chloride 1,000 ML IV SCH (00:30)
[2016-07-25] MEDS: Chlorhexidine 0.12% 15 mL Oral Solution MT SCH ×7 (00:31→23:56)
--- NOTE | 2016-07-25 01:17 | ABG ---
DateTimeAnalyzed 01:14:00 -_ pH ____7.544 - 7.350 7.450 pCO2 ___25.5__ -mmHg 35.0 45.0 pO2 ___75.9__ -mmHg 69.0 116 HCO3- ___22.0__ -mmol/L 22.0 26.0 ABE ____0.7__ -mmol/L -2.0 2.0 tHb ___11.7__ -g/dL O2Hb ___94.4__ -% COHb ____1.2__ -% MetHb ____1.1__ -% sO2 ___96.6__ -% FIO2 ___21.0__ -% PEEP ____5.0__ -cmH2O Set_RR ___20.0__ -b/min Vt __500.0__ -L Drawn By MD - Date/Time Notified____ 01:17:00 -_ Spontaneous_RR ___20.0__ -b/min Oxygen Device 1 VENTILATOR - Notified By MD - Notified Whom RN K.JAY - B 752 -mmHg tO2 ___15.6__ -Vol% Saw test N/A -
[2016-07-25] MEDS: Albuterol-Ipratropium 3 mL Inhalation Solution NEB SCH ×4 (01:40→21:43)
[2016-07-25] MEDS: Sodium Bicarb 8.4% Inj 150 MEQ in Dextrose 5% 1,000 ML IV SCH (02:00)
--- NOTE | 2016-07-25 04:27 | ABG ---
DateTimeAnalyzed 04:24:00 -_ pH ____7.494 - 7.350 7.450 pCO2 ___31.8__ -mmHg 35.0 45.0 pO2 104 -mmHg 69.0 116 HCO3- ___24.2__ -mmol/L 22.0 26.0 ABE ____1.8__ -mmol/L -2.0 2.0 tHb ___11.6__ -g/dL O2Hb ___96.4__ -% COHb ____0.8__ -% MetHb ____1.1__ -% sO2 ___98.3__ -% FIO2 ___21.0__ -% PEEP ____5.0__ -cmH2O Set_RR ___15.0__ -b/min Vt __500.0__ -L Drawn By MD - Date/Time Notified____ 04:27:00 -_ Spontaneous_RR ___15.0__ -b/min Oxygen Device 1 VENTILATOR - Notified By MD - Notified Whom RN J.LEON - B 751 -mmHg tO2 ___15.9__ -Vol% Saw test N/A -
[2016-07-25 05:41] LABS: BASOPHILS % (AUTO) 0 % (0-3); EOSINOPHILS % (AUTO) 0 % (0-5)
[2016-07-25 05:43] LABS: Mean Corpuscular Hemoglobin 31.3 pg (27.0-35.0); Mean Corpuscular Volume 88.9 fL (81-100); Platelet Count 150 bil/L (150-400)
[2016-07-25 06:12] LABS: MONOCYTES % (AUTO) 5 % (4-12); NEUTROPHILS % (AUTO) 63 % (40-74)
[2016-07-25 06:21] LABS: Magnesium 1.9 mg/dL (1.6-2.6); Phosphorus 3.8 mg/dL (2.5-4.9)
--- NOTE | 2016-07-25 06:24 | NUR ---
Mentation/Hemodynamics Patient sedated on vent with Fentanyl 50mcg/hr, tolerating vent well, minimal secretions, ABG drawn by RT and FIO2 decreased to 40%, not following commands, no s/sx of pain noted, HR slowly increased from 100's to the 120's and Ativan 0.5mg given x1, HR 122 sinus tach at this time, no BM, 2200ml urine output, at bedside, uneventful shift. Addendum: 07/25/16 at 0631 by NORMA LEON RN Amended: Links added.
[2016-07-25] MEDS: Azithromycin Inj 500 MG in Dextrose 5% w/Vial Mate 250 ML IV SCH (09:02)
[2016-07-25] MEDS: Pantoprazole 4 mg/mL 10 mL Inj IVPUSH SCH ×2 (09:02→15:28)
[2016-07-25] MEDS: Piperacillin-Tazo 3.375 Gm Inj 3.375 GM in Dextrose 5% Minibag Plus 50 ML IV SCH ×2 (09:03→21:42)
[2016-07-25] MEDS: Dextrose 5% 0.45% NaCl 1,000 ML IV SCH ×3 (09:46→22:36)
--- NOTE | 2016-07-25 10:10 | DRSVH ---
[facility] [address] [place] [address] Echocardiogram Report Name: ALESSANDRA WOOTEN KStudy Date: 07/25/2016 Height: 67 in Hospital Exam Location: [facility] Weight: 183 lb Gender: Female BSA: 1.9 m2 : 1960 Age: 56 yrs BP: 123/75 mmHg Reason For Study: Endocarditis Ordering Physician: Performed By: Franca EVANGELISTAIST [facility] Interpretation Summary The patient was in sinus tachycardia with heart rates between 123-127 bpm during the exam. The left ventricle is normal in size. The ejection fraction is estimated to be 65-70%. The right ventricle is normal in size and function. There is mild mitral regurgitation. There is a moderate left-sided pleural effusion. No obvious valvular vegetation seen. However if clinical suspicion for endocarditis is high, consider SOPHIE. Procedure: A two-dimensional transthoracic echocardiogram with color flow and Doppler was performed. The study quality was technically adequate. There is no prior echocardiogram noted for this patient. The patient was in sinus tachycardia with heart rates between 123-127 bpm during the exam. Left Ventricle: The left ventricle is normal in size. There is borderline concentric left ventricular hypertrophy. There is no thrombus. The ejection fraction is estimated to be 65-70%. There are no focal wall motion abnormalities. The E/A ratio is reversed, suggesting impaired early relaxation of the left ventricle or a reduced preload state. Right Ventricle: The right ventricle is normal in size and function. Atria: The left atrium is mildly dilated. The right atrium is normal in size. The interatrial septum is intact with no evidence for an atrial septal defect. Mitral Valve: There is mild mitral annular calcification. There is no vegetation seen on the mitral valve. There is mild mitral regurgitation. Aortic Valve: The aortic valve is trileaflet. The aortic valve opens well. The aortic valve is slightly calcified. There is no aortic valvular vegetation. No aortic regurgitation is present. Tricuspid Valve: The tricuspid valve is normal in structure and function. There is no tricuspid valve vegetation. The right ventricular systolic pressure is estimated at 23 mmHg assuming a right atrial pressure of 3 mm Hg. There is trace tricuspid regurgitation. Pulmonic Valve: The pulmonic valve is normal in structure and function. There is no vegetation on the pulmonic valve. There is trace pulmonic regurgitation. Great Vessels: The aortic root is normal size. The ascending aorta is normal in size. The pulmonary artery is normal size. The IVC is of normal diameter and collapses greater than 50% with a sniff. This suggests a low right atrial pressure of 3 mm Hg. Pericardium/ Pleura There is no pericardial effusion. There is a moderate left-sided pleural effusion. MMode/2D Measurements & Calculations LVIDd: 4.1 cm LA dimension: 3.6 cm RA long axis LVOT diam LVIDs: 2.6 cm FS: 37.5 % LA A2 area: 24.8 cm RA area AoV Opening EPSS: 0.46 cm LA A4 area: 21.2 cm IVSd: 1.1 cm LA length (vol): 5.6 cm: 19.8 cm Ao root diam LVPWd: 1.1 cm LA vol: 79.7 ml RA vol LA vol index : 58.7 ml Aortic Jxn RA : 30.1 mm2 asc Aorta IVC diam: 1.5 cm Diam: 3.1 cm LV barnett. diameter/BSA LV sys. diameter/BSA RVD1 (basal) (cm/m^2): 2.1 (cm/m^2): 1.3 Doppler Measurements & Calculations Ao V2 max MV E max jim MV E/A: 0.74 TR max jim : 186.8 cm/sec : 56.6 cm/sec Med Peak E' Jim : 220.5 cm/sec Ao max PG MV A max jim TR max PG : 14.0 mmHg : 76.5 cm/sec E/E' med: 10.2 : 19.5 mmHg Ao mean PG MV P1/2t: 74.2 msec Lat Peak E' Jim PA V2 max : 122.6 cm/sec LVOT Max Jim E/E' lat: 3.4 PA mean PG : 136.9 cm/sec E/e' average: 6.8 Pulm A Revs Dur PA Accel Time JOHN(I,D): 1.8 cm : 0.09 sec sev ratio MV A dur: 0.09 sec MV dec time MV P1/2t max jim Ao V2 mean LV V1 max PG : 0.25 sec : 126.6 cm/sec MVA(P1/2t): 3.0 cm2 Ao V2 VTI: 26.0 cm LV V1 VTI JOHN(V,D): 2.1 cm2 : 16.5 cm PA V2 mean JOHN indexed to BSA Pulm A Revs Dur - MV A : 92.3 cm/sec (cm^2/m^2): 0.92 Dur: -0.02 msec Reading Physician:KIYA
--- NOTE | 2016-07-25 10:22 | NUR ---
NUTRITION ASSESSMENT Assess: 56 YO F admitted to CCU with RADHA, PNA, sepsis, and pancreatitis. Pt currently on mechanical ventilation. Per notes, pt has had no food or drink since Sunday (07/21). PMHX: HTN, depression, anxiety, chronic pain, degenerative disc disease. DIET: NPO. LABS: Na 148, BUN 102, Cr 4.61, Glu 113, Glu 334, Alb 2.9, AST 287, ALT 199 MEDICATIONS: Reviewed. Fentanyl. GI: No BM noted. SKIN: No issues noted. ANTHROPOMETRICS: Wt: 83.2 kg, BMI 28.7 kg/m2, Admit wt: 82.1 kg. ESTIMATED NEEDS: VENT/RADHA Calories: 4613-3291 kcal/day (20-25 kcal/kg BW) Protein: 99-123 g/day (1.2-1.5 g/kg BW) NUTRITION DIAGNOSIS: 1) Inadequate oral intake related to decreased ability to consume sufficient energy as evidenced by NPO/VENT status. INTERVENTION: 1) Will await plan of care decisions. If pt remains intubated, recommend initiating nutrition support in the next 48 hours. MONITOR/EVALUATE: NPO/Vent status, labs, GI, POC, nutrition status. Follow per high nutrition risk guidelines.
--- NOTE | 2016-07-25 10:34 | DRSVH ---
PROCEDURE: X-RAY CHEST ONE VIEW, PORTABLE ([id number]) INDICATIONS: intubated pt; monitor tubes and lines TECHNIQUE: One view of the chest was acquired. COMPARISON: [facility], CR, XR CHEST 1VW (PORTABLE), 07/24/2016, 17:22. FINDINGS: Surgical changes and devices: The patient is intubated and endotracheal tube is projected 3.5 cm abov e the norma. NG tube is slightly coiled in the gastric fundus. A central venous catheter is projecte d over the SVC. Lungs and pleura: Patchy opacities are present at the left lung base. Left pleural effusion cannot be excluded. Mediastinum: Mediastinal contours appear normal. Heart size is normal. Bones and chest wall: No suspicious bony lesions. Overlying soft tissues appear unremarkable. IMPRESSION: 1. Stable support lines and tubes. 2. Persistent radiodensities at the left lung base suspicious for aspiration/infection. Dictated by: Tex RAYGOZA Interpreted: Ramón Aldrich MD on 07/25/2016 at 10:32 Transcribed by: SUDEEP on 07/25/2016 at 10:33 Approved by: Ramón Aldrich M.D. on 07/25/2016 at 17:08
--- NOTE | 2016-07-25 10:55 | PCM.PNNEPH ---
Subjective Date of Service Jul 25, 2016 Subjective Patient was intubated for airway protection. Her blood pressure has been stable throughout the night. Kidney function has been improved with IV fluid resuscitation intake 668 6 mL, urine output 1225 mL. Exam Vital Signs Vital Sign - Last Date Time Temp Pulse Resp B/P Pulse Ox O2 Delivery O2 Flow Rate FiO2 07/25/16 09:23 128 115/79 98 40 07/25/16 08:00 37.1 17 Mechanical Ventilator 07/24/16 12:30 4.00 Intake and Output 07/24/16 07/24/16 07/25/16 Cumulative From/Thru 15:00 23:00 07:00 07/24/16 09:02 - 07/25/16 06:20 Intake Total 4000 ml 2686 ml 1886 ml 8572 ml Output Total 1225 ml 2200 ml 3425 ml Balance 4000 ml 1461 ml -314 ml 5147 ml Intake IV Total 4000 ml 2686 ml 1886 ml 8572 ml Output Urine Total 1225 ml 2200 ml 3425 ml Gastric Drainage Total 0 ml 0 ml # Bowel Movements 0 0 0 Exam GENERAL APPEARANCE: Intubated, sedated. HEENT: No pallor. No jaundice. No JVD. No lymphadenopathy. No thyroid enlargement. Right triple-lumen in place on the right IJ, NG tube placed. HEART: Regular rhythm. Normal S1, S2. Tachycardic. No murmurs, rubs, or gallops. LUNGS: Intubated on the full ventilator support, equal breath sounds bilaterally , no wheezing, no rhonchi. ABDOMEN: Soft, nontender, nondistended. Decreased bowel sounds. EXTREMITY: No significant edema, cyanosis or clubbing of fingers. Multiple bruises noted on the lower extremities. Lab and Diagnostics Result Diagram: 07/25/1651907/25/16519 X-Rays, CTs and MRIs PROCEDURE: CT ABDOMEN AND PELVIS WITHOUT CONTRAST IMPRESSION: 1. Severe bilateral lower lobe pneumonia. 2. Distended distal small bowel loops, suggestive of gastroenteritis. 3. Thickening of the transverse, descending, and sigmoid colon, with differential considerations including ischemia, infection, and inflammation. 4. Fecal impaction within the rectum. 5. Proctitis. 6. Normal appendix. 7. Findings suggestive of pancreatitis; recommend correlation with laboratory testing. 8. Nonobstructing left nephrolith. 9. Moderately distended gallbladder. If there is clinical evidence for cholecystitis, ultrasound is recommended for further assessment. Dictated by: Ambreen Patel M.D. on 07/24/2016 at 11:04 PROCEDURE: CT BRAIN WITHOUT CONTRAST IMPRESSION: 1. No acute intracranial disease process. 2. Complete opacification of the right maxillary sinus which could be inflammatory or neoplastic. Dictated by: Sheyla Chinchilla MD, PhD on 07/24/2016 at 9:18 PROCEDURE: X-RAY CHEST ONE VIEW, PORTABLE IMPRESSION: Suspect bilateral lower lobe pneumonia. Dictated by: Ana Cristina Manjarrez M.D. on 07/24/2016 at 11:00 12-lead ECG Rate 110 QTc 433 Sinus tachycardia with no acute ischemic changes Plan Impression ASSESSMENT: 1. Acute kidney injury. The etiology is multifactorial secondary to prerenal azotemia, NSAIDs, sepsis, and component of acute tubular necrosis. 2. Hyperkalemia, resolved. 3. Anion gap metabolic acidosis, improved. 4. Elevated serum osmolal gap. Pending ethylene glycol level. 5. Sepsis 6. Polysubstance abuse. 7. Acute pancreatitis. 8. Transaminitis, suspected alcoholic hepatitis. 9. Underlying disease of hypertension. 10. History of depression and anxiety disorder. Plan I will stop normal saline and bicarbonate drip. We will start patient on D5 half saline and 100 mL per hour. Overall kidney function has improved. We will hold renal replacement therapy. Avoid nephrotoxins, adjust meds per GFR. We will monitor along with you. Maria Luisa Jauregui MD Jul 25, 2016 10:55
--- NOTE | 2016-07-25 12:07 | CONS ---
[address] [address] CONSULTATION REPORT PATIENT: ALESSANDRA WOOTEN : 1960 MR#: [id number] ADMIT: 07/24/2016 JOB ID: [id number] DATE OF SERVICE: 07/25/2016 INFECTIOUS DISEASE CONSULTATION: I thank Dr. Del Rosario for this timely consult. REASON FOR CONSULTATION: Complex patient with pancreatitis, sinusitis, pneumonia, and respiratory failure. HISTORY OF PRESENT ILLNESS: The patient is a 56-year-old woman who lives in the [facility]. Her past medical history is notable for hypertension, chronic pain, and anxiety with depression. She takes some psychotropic agents and is a heavy consumer of alcohol. It is also reported that she may take opiates, which may or may not have been prescribed. She and her are planning to move from their home and she was preparing for a garage sale and getting things ready late last week. Late last week she was given a new prescription for Flexeril and there are suggestions that perhaps she took large quantities of that. In any event, on July 21 and she became a bit confused, which is unusual for her, and then was found to have fallen in the shower with some altered mental status. Her mental status continued to decline over July 22 and , and she became progressively more short of breath and developed fever. She was admitted to this facility with fever, shortness of breath, and confusion on the , yesterday, and required intubation as well as a brief course of vasopressor agents which have now been withdrawn, though she remains on the ventilator. A wide variety of investigations have been performed over the past 24 hours which have established a multiplicity of diagnoses including what appears to be sinusitis by CT scan of the head, pancreatitis both by lab measurement as well as CT of the abdomen, and bilateral pulmonary infiltrates. It is also clear that she has rhabdomyolysis, as well as what appears to be fecal impaction with a thickened colon. The patient has been appropriately cultured and started on broad-spectrum antibiotics which include azithromycin and Zosyn, and infectious disease consultation is requested at this time regarding antibiotic management. This morning this case was discussed extensively with the ICU team on rounds. In addition, we discussed this case at the bedside with respiratory therapy and nursing. No additional history is available the patient as she is still on the ventilator and quite sedated. We were able to arouse her a bit but she does not answer any questions or follow any commands, though she does grimace when certain painful areas are palpated. PAST MEDICAL HISTORY: 1. Hypertension. 2. Chronic pain. 3. Anxiety and depression. 4. Alcohol abuse. 5. Polysubstance abuse. SOCIAL HISTORY: The patient is not currently working and she lives in the [facility] with her family. She is a nonsmoker who drinks a bottle of wine or so a day and is said to perhaps use opiates as well as gabapentin, flexeril, and other medicines for anxiety. FAMILY HISTORY: Cannot be obtained as the patient is intubated and sedated at this point. Family history cannot be obtained because she is obtunded, but there are notes that she is an orphan, so it is unclear how much would be known from the family history. REVIEW OF SYSTEMS: Was not done as the patient is intubated, sedated, and there are no available family members to collect this data from. PHYSICAL EXAMINATION: Reveals an intubated sedated woman. With vigorous shaking or palpation the patient will briefly rouse and open her eyes, but does not interact in any meaningful way. She was febrile when she came in yesterday to 38.2 on two measurements. Now afebrile temp 37.1, pulse 128 and this is sinus tachycardia, respiratory rate is ventilator dependent, blood pressure 115/79. She is no longer on vasopressors. She is on 40 of FiO2 and 5 of PEEP, saturating very well. Looks reasonably comfortable on the ventilator. Eyes: Without conjunctivitis or scleral icterus. No temporal wasting. No head trauma. Oral endotracheal tube and oral gastric tube in good position. No thrush or herpetic lesions are seen. The neck is without JVD or adenopathy and seems reasonably supple. The lungs are notable for rales at both bases, left greater than right. Cardiac tones: Very tachycardic, without appreciable murmur. There is a regular rhythm. The abdomen is tender and this tenderness starts in the epigastrium and extends down along the entire left side of the abdomen by my exam. The patient grimaces whenever her left side or epigastrium are palpated. Bowel sounds are hypoactive. No masses are appreciated and specifically no hepatosplenomegaly. There is no appreciable ascites. No suprapubic tenderness. External genitalia normal. Griffin catheter present. No inguinal adenopathy. The patient has no notable needle tracks on her upper extremities. There are no notable abnormalities of the upper extremities. No skin rashes noted anywhere. The sinuses appear to be nontender, though it is difficult to tell given that the patient is somewhat sedated. Lower extremities are free of edema, cyanosis, or any form of cellulitis. Lower extremities are well perfused. No evidence of synovitis is noted. LABORATORIES: Include white count 11,000 yesterday, now 6900 but this includes 25% bands and 2% metamyelocytes for an extraordinary left shift. Creatinine when she came in was 11.11 and is now down to 4.6. Bicarb 17 today. LDH 576. CPK was as high as 2100 yesterday, it has slightly decreased from that level today. Lipase an impressive 1274. Procalcitonin was 3.32 yesterday. Urinalysis without pyuria. Urine tox for toxicology negative for aspirin and acetaminophen. Alcohol negative. DAVE screen is pending. Spinal fluid was obtained was benign. No white cells seen. Normal glucose and protein, though there were a few red cells. Hepatitis serologies pending. HIV pending. Urine Legionella and urine pneumococcal antigens are negative. MRSA screen negative. Blood cultures negative. Respiratory viral PCR negative and spinal fluid PCR multiplex panel negative. Radiographs were reviewed. The patient's chest x-ray showed what appears to be bilateral infiltrates. These are much better seen on the CT of the abdomen and pelvis which shows a very extensive left greater than right infiltrate, perhaps consistent with an aspiration event. Also noted on this CT there is evidence of pancreatitis to go along with her lipase of 2000. The CT scan of the brain is basically normal, but acute what appears to be right maxillary sinusitis is noted, with complete opacification. IMPRESSION: This is a complex case of a woman with polysubstance disorder as well as depression who may have ingested too much Flexeril and/or perhaps some opiates leading to mental status changes and decreased oral intake. She presents with altered mental status and shortness of breath requiring intubation with bilateral infiltrates, fever, and renal failure with a creatinine over 11. This is an extraordinary collection of problems in a woman who is reportedly basically healthy and was doing okay until late last week. In terms of infections, at this point it appears that should we have definite evidence of multiple infectious and other processes including a right maxillary sinusitis, bilateral left greater than right pneumonia, and pancreatitis. There is also ongoing rhabdomyolysis with renal failure, as well as a thickened colon seen on the CT scan of the abdomen, which may be due to obstipation. Appropriate antibiotics here would certainly be directed at both sinusitis as well as bilateral aspiration pneumonia. I doubt that antibiotics are specifically indicated because of the pancreatitis, but antibiotics may provide some protection from infections in severe pancreatitis, though this literature is complicated and most experts argue against that practice, but we may get it as a potential "side benefit" in this circumstance. RECOMMENDATIONS: 1. I would continue with azithromycin, but only for about five days, as I do not think this represents any form of atypical type pneumonia. Note that her QT interval is reasonable at this point as we always worry about the interaction of methadone and azithromycin in terms of QTc prolongation. 2. I would continue with Zosyn with the plan to go 5-7 days, with careful monitoring of her white count, left shift, and procalcitonin. 3. Will continue to follow her multiple labs including the sputum Gram stain and culture that was previously ordered. 4. We await the multiple pending serologies which include, among other things, HIV and hepatitis C. 5. As her renal function improves we will need to increase her dose of Zosyn going forward and will monitor this with you. Thank you very much for this consult.
[2016-07-25] MEDS: Norepineph 8,000 mCg/250 mL NS 8,000 MCG in IV Premix 1 EACH IV SCH (12:52)
--- NOTE | 2016-07-25 13:31 | PCM.CHPMED ---
Subjective Date of Service: Jul 25, 2016 Primary Physician: Admitting Physician: Al Del Rosario MD Primary Care Physician: James Eli MD Attending Physician: Al Del Rosario MD Chief Complaint: Chief Complaint: Acute hypoxic respiratory failure History of Present Illness: Pulmonology/ICU Consult: Attending Provider Dr. Marcin Shahid, Requesting Provider Dr. Travis. Reason For consult: Hypercarbic Respiratory Failure on Mechanical Ventilation 56 year old female with a past medical history HTN, Anxiety, osteoarthritis and chronic narcotic use admitted for severe sepsis, pneumonia, RADHA and encephalopathy. Per admission note and interview with patient's , patient has been acting somewhat lethargic and confused with slurring of her words for 3 days leading up to hospital admission. These symptoms had been getting progressively worse culminating in finding patient "slumped over " in the shower followed by somnolence and possible respiratory difficulties. There is some question of patient ingesting narcotics as well as alcohol. Per patient's , patient's son is a known drug abuser/dealer and patient may have had access access to various substances which include methadone and heroin. (Patient's son name is Kulwant telephone #[phone], calls forwarded direct to [facility]). She is also reported to be abusing her home gabapentin and ingesting approximately 1 bottle of wine per day. Unable to Obtain adequate H&P or ROS secondary to Pt status -intubated and sedated. PMH Past Medical History 1. Hypertension. 2. Chronic back pain. 3. Depression with anxiety. 4. Thyroid nodules. 5. Fungal toenails. Bedside Blood Glucose: 83 Surgical History Status post right bunionectomy in 2005. Home Medications MEDICATIONS: 1. Clonidine 0.3 mg t.i.d. 2. Triamterene/hydrochlorothiazide 37.5/25 mg daily. 3. Gabapentin 1800 mg at bedtime. 4. Meloxicam 15 mg daily. 5. Venlafaxine 75 mg b.i.d. 6. Lamisil 250 mg daily. 7. Ibuprofen 200 mg as needed. 8. Cyclobenzaprine 10 mg as needed for spasm. 9. 0.1% triamcinolone topical cream b.i.d. 10. 2% ketoconazole topical cream b.i.d. Allergies: Coded Allergies: No Known Allergies (Verified , 04/12/06) Social History Hx Alcohol Use: Yes (Bottle of wine daily)Alcoholic Drinks Per Day: 1/2 Bottle -1 Bottle of Wine/DayHx Substance Use: Yes (Heroin, gabapentin)Hx Tobacco Use: No Smoking Status: Never Smoker Living Arrangement: with Family Additional Information SOCIAL HISTORY: Positive multiple polysubstance abuse, including heroin, gabapentin, questionable methamphetamine, alcohol abuse. Patient drinks a bottle of wine daily. Exam Vital Signs Vital Sign - Last Date Time Temp Pulse Resp B/P Pulse Ox O2 Delivery O2 Flow Rate FiO2 07/25/16 09:23 128 115/79 98 40 07/25/16 08:00 37.1 17 Mechanical Ventilator 07/24/16 12:30 4.00 Intake and Output 07/24/16 07/24/16 07/25/16 Cumulative From/Thru 15:00 23:00 07:00 07/24/16 09:02 - 07/25/16 06:20 Intake Total 4000 ml 2686 ml 1886 ml 8572 ml Output Total 1225 ml 2200 ml 3425 ml Balance 4000 ml 1461 ml -314 ml 5147 ml Intake IV Total 4000 ml 2686 ml 1886 ml 8572 ml Output Urine Total 1225 ml 2200 ml 3425 ml Gastric Drainage Total 0 ml 0 ml # Bowel Movements 0 0 0 Additional Information: General: Intubated and sedated HEENT: Normocephalic, atraumatic. Intubated. NG tube in place Neck: No jugular venous distension. Right triple-lumen catheter in place. NG tube placed. Carotid pulse visualized and bounding. Cardiovascular: Tachycardic rate with regular rhythm no appreciable murmurs, though difficult to appreciate secondary to ambient noise and ventilator. Pulmonary: Clear to auscultation bilaterally with good air movement. . Abdomen: Soft to palpation. Extremities: 4 point soft restraints. Neurological: Patient open eyes to voice, unable to follow commands such as turning her head or squeeze my hand. Patient is able to wiggle toes on command repeatedly. Ventilator settings: Tidal volume 500, respiratory rate 15, PEEP 5, FiO2 0.4 ABG: PH 7.494, CO2 31.8, O2 104, HCO3 24.2. IV drips and Sedatives: Fentanyl, bicarbonate IV lines: Right IJ I&O: Last 24 hours: In 1886, out 0 total -314 Lab and Diagnostics Result Diagram: 07/25/16 0520 07/25/16 0520 X-Rays, CTs and MRIs . X-RAY CHEST ONE VIEW, PORTABLE 07/24/2016 IMPRESSION: Suspect bilateral lower lobe pneumonia. X-RAY CHEST ONE VIEW, PORTABLE 07/24/2016 IMPRESSION: 1. Right IJ central line is in the expected position. 2. Slight increase in left basilar airspace opacity and trace left pleural effusion. X-RAY CHEST ONE VIEW, PORTABLE 07/24/2016 IMPRESSION: 1. Endotracheal tube at the norma. Consider retracting the tube 3-4 cm. 2. Left basilar patchy radiopacity suspicious for aspiration/infection. X-RAY CHEST ONE VIEW, PORTABLE 07/25/2016 IMPRESSION: 1. Stable support lines and tubes. 2. Persistent radiodensities at the left lung base suspicious for aspiration/ infection. CT BRAIN WITHOUT CONTRAST 07/24/2016 IMPRESSION: 1. No acute intracranial disease process. 2. Complete opacification of the right maxillary sinus which could be inflammatory or neoplastic. CT ABDOMEN AND PELVIS WITHOUT CONTRAST 07/24/2016 IMPRESSION: 1. Severe bilateral lower lobe pneumonia. 2. Distended distal small bowel loops, suggestive of gastroenteritis. 3. Thickening of the transverse, descending, and sigmoid colon, with differential considerations including ischemia, infection, and inflammation. 4. Fecal impaction within the rectum. 5. Proctitis. 6. Normal appendix. 7. Findings suggestive of pancreatitis; recommend correlation with laboratory testing. 8. Nonobstructing left nephrolith. 9. Moderately distended gallbladder. If there is clinical evidence for cholecystitis, ultrasound is recommended for further assessment. US RENAL SONOGRAM 07/24/2016 IMPRESSION: 1. No ultrasound findings to explain acute renal failure. 2. A 3.7 mm nonobstructing stone in the left kidney. No hydronephrosis. 3. A 2 cm cyst in the inferior pole of the right kidney. Additional Diagnostics: Echocardiogram Report Interpretation Summary The patient was in sinus tachycardia with heart rates between 123-127 bpm during the exam. The left ventricle is normal in size. The ejection fraction is estimated to be 65-70%. The right ventricle is normal in size and function. There is mild mitral regurgitation. There is a moderate left-sided pleural effusion. No obvious valvular vegetation seen. However if clinical suspicion for endocarditis is high, consider SOPHIE. Assessment & Plan Assessment 56 year old female with a history of HTN, anxiety and chronic narcotic use. Admitted for altered mental status, secondary to possible sepsis with pneumonia source and AK I. 1. Acute hypoxemic respiratory failure. Patient had increasing oxygen requirements and was not able to protect her airway. Tolerating ventilator well , day 2 - Ventilator settings tidal volume 500, respiratory rate 15, PEEP 5, FiO2 0.4. - ABGs pH 7.494, CO2 31.8, O2 104, HCO3 24.2 - We will stop fentanyl drip and begin fentanyl pushes 2. Bilateral pneumonia - WBC 11.1 on admit, pro-juve 3.3 - Cultures and serologies negative to-date - ABX Zosyn and azithromycin, day 2 3. Sepsis, tachycardic 105 fever of 38.2. BP 97/42, lactic acid 1.3, WBC 11.1. - Possible sources include pneumonia - NS 50 ml/hr as well as a bicarb drip at 100 ml/hr. - Echo did not show vegetation - Continue ABX as above - IV fluids per nephrology, D5 half saline and 100 mL per hour. - CSF negative 4. Acute kidney injury, creatinine on admission 11.11 - Creatinine 07/25/2016 4.61 - IV fluids as above - Ethylene glycol and methanol levels are ordered and pending. - Continue to monitor BMP. 5. Hyperkalemia, acute, present on admission. - Patient received insulin and glucose, albuterol, calcium gluconate, sodium bicarb with effect - Will continue to monitor BMP and correct as needed. 6. Pancreatitis, acute, present on admission. - Lipase 1274 on admit - IV fluids as above. - Patient NPO. 7. Metabolic and toxic encephalopathy - Urine tox in the ED positive for meth and heroin. - Gabapentin, ethylene glycol and methanol levels pending. - Nephrology evaluating for possible dialysis. - IV fluids as above. 8. Anion gap metabolic acidosis, acute, present on admission. - Osmolar gap 19.7 - Secondary to sepsis, RADHA. - Continue IV fluids total Critical Care time spent 60min. Problems: GI Prophylaxis: Proton Pump Inhibitor VTE Prophylaxis: Sub-Q Heparin (Unfractionated) VTE Mechanical Devices: Intermittant Pneumatic CD Resuscitation Status: CPR: Attempt Resuscitation Attending Statement The patient was seen and examined together with Dr. Sanchez on 07/25/2016 and I agree with the history, exam and plan as outlined in the note above. MAVERICK SANCHEZ DO Jul 25, 2016 10:38 Mracin Shahid MD Jul 30, 2016 11:15
[2016-07-25] MEDS ORDERED: Sodium Biphos-Phos 133 mL Enema RECTAL PRN (13:40)
[2016-07-25] MEDS: Esmolol 2,500 mg/250 mL NS 2,500,000 MCG in IV Premix 1 EACH IV SCH ×2 (15:28→22:31)
[2016-07-25] MEDS: Senna-Docusate 8.6-50 mg Tablet PO SCH (15:29)
--- NOTE | 2016-07-25 15:41 | NUR ---
Remains on vent support. Attempts to open eyes to repeated stimulus, no commands, little movement noted. Fentanyl infusion stopped per MD, to give bolus PRN agitation. Remains tachycardic, HR up to 130s sustained. BP stable. Esmolol gtt started this afternoon. Lo-grade temp continued. Brisk dark yajaira urine output via pierre cath. Green bile drainage from OGT. No stool, no flatus noted, MD updated. Bowel regime started, fleets enema administered. Rectal vault with small amount soft stool present. Supportive family at bedside. ECHO done this morning. Repeated full bedbath. Hair washed, tangles/matts removed. Skin appears intact, without redness or breakdown. Scattered bruises noted.
[2016-07-25] MEDS: fentaNYL 2,500 mCg/250 mL 2,500 MCG in IV Premix 1 EACH IV SCH (17:12)
--- NOTE | 2016-07-25 20:15 | PCM.PNMED ---
Subjective Date of Service Jul 25, 2016 Subjective overnight: No acute events overnight FiO2 was able to be titrated down Today: Exam Vital Signs Vital Sign - Last Date Time Temp Pulse Resp B/P Pulse Ox O2 Delivery O2 Flow Rate FiO2 07/25/16 04:18 37.4 121 15 123/75 100 Mechanical Ventilator 50 07/24/16 12:30 4.00 Intake and Output 07/24/16 07/24/16 07/25/16 Cumulative From/Thru 15:00 23:00 07:00 07/24/16 09:02 - 07/25/16 06:20 Intake Total 4000 ml 2686 ml 1886 ml 8572 ml Output Total 1225 ml 2200 ml 3425 ml Balance 4000 ml 1461 ml -314 ml 5147 ml Intake IV Total 4000 ml 2686 ml 1886 ml 8572 ml Output Urine Total 1225 ml 2200 ml 3425 ml Gastric Drainage Total 0 ml 0 ml # Bowel Movements 0 0 0 Exam Gen.: Mildly obese middle-aged female appearing older than stated age intubated and sedated Eyes: Pupils equal round and reactive to light and icteric sclera noninjected conjunctiva HENT: atraumatic, normocephalic, ET in place Mucus membranes dry, no central cyanosis noted Neck: supple, trachea midline, right IJ in place, No JVD noted Cardiac: tachycardic with regular rhythm and no murmur appreciated Lungs: coarse sounding throughout with expiratory wheezes heard anteriorly abdomin: Patient grimaces with palpation possibly consistent with tenderness, non-distended, hypoactive bowel tones, soft : Griffin implies Extremities: Pulses intact at radial and dorsalis pedis bilaterally, soft restraints at wrists, No cyanosis, clubbing or edema Neurologic: status could not be evaluated as patient is intubated and sedated Psychiatric: status could not be evaluated patient is sedated and intubated Lab and Diagnostics Result Diagram: 07/25/1651907/25/16 05 X-Rays, CTs and MRIs PROCEDURE: CT ABDOMEN AND PELVIS WITHOUT CONTRAST IMPRESSION: 1. Severe bilateral lower lobe pneumonia. 2. Distended distal small bowel loops, suggestive of gastroenteritis. 3. Thickening of the transverse, descending, and sigmoid colon, with differential considerations including ischemia, infection, and inflammation. 4. Fecal impaction within the rectum. 5. Proctitis. 6. Normal appendix. 7. Findings suggestive of pancreatitis; recommend correlation with laboratory testing. 8. Nonobstructing left nephrolith. 9. Moderately distended gallbladder. If there is clinical evidence for cholecystitis, ultrasound is recommended for further assessment. Dictated by: Ambreen Patel M.D. on 07/24/2016 at 11:04 PROCEDURE: CT BRAIN WITHOUT CONTRAST IMPRESSION: 1. No acute intracranial disease process. 2. Complete opacification of the right maxillary sinus which could be inflammatory or neoplastic. Dictated by: Sheyla Chinchilla MD, PhD on 07/24/2016 at 9:18 PROCEDURE: X-RAY CHEST ONE VIEW, PORTABLE IMPRESSION: Suspect bilateral lower lobe pneumonia. Dictated by: Ana Cristina Manjarrez M.D. on 07/24/2016 at 11:00 12-lead ECG Rate 110 QTc 433 Sinus tachycardia with no acute ischemic changes Cardiac Echo Impressions Echocardiogram Report Interpretation Summary The patient was in sinus tachycardia with heart rates between 123-127 bpm during the exam. The left ventricle is normal in size. The ejection fraction is estimated to be 65-70%. The right ventricle is normal in size and function. There is mild mitral regurgitation. There is a moderate left-sided pleural effusion. No obvious valvular vegetation seen. However if clinical suspicion for endocarditis is high, consider SOPHIE. Reading Physician:KIYA Assessment & Plan Patient is a 56 year old female with a history of HTN, anxiety and osteoarthritis with chronic narcotic use. She presented to [facility] on 07/24/16 via EMS with altered mental status. Found to have hyperkalemia, pneumonia and an significant kidney injury. Admitted for management of her numerous co- existing conditions to the ICU for what is likely to be a prolonged hospital admission. 1. Severe sepsis, acute, present on admission. - Criteria met: tachycardia (105), fever (38.2), respiratory and possibly GI source, RADHA and encephalopathy and hypotension. - Fluid resuscitation given in the ED. Will continue NS 50 ml/hr as well as a bicarb drip at 100 ml/hr. - Norepinephrine to be used to maintain a MAP >65. - Treat the underlying infections as below. - Continue to monitor CBC, procalcitonin. - Limited echo ordered to evaluate left ventricular function in the setting of this critical illness shows intact ejection fraction - Notable bandemia today 25% 2. Bilateral pneumonia, acute, present on admission. - Zosyn and azithromycin started in the ED. Will continue those at this time ( day 2 of antibiotics). - Viral PCR panel ordered all negative - Strep pneumo and legionella urine antigens ordered negative - Sputum culture ordered and pending. May need to ask respiratory therapy to suction a good sputum sample. - MRSA screening ordered negative - O2 supplementation to keep O2 saturations 92-96%. - DuoNeb available QID. Albuterol neb available Q2 PRN. - Low threshold for intubation due to concerns that patient cannot adequately protect her airway. 3. Acute kidney injury, present on admission. - IV fluids initiated in the ED. Continue as above in #1. - Ethylene glycol and methanol levels are ordered and pending. - Dr. Jeff of nephrology has been consulted and we appreciate her input. - Continue to monitor BMP. 4. Hyperkalemia, acute, present on admission. - Patient received insulin and glucose, albuterol, calcium gluconate, sodium bicarb in the ED with improvement on repeat BMP. - Will continue to monitor BMP and correct as needed. 5. Pancreatitis, acute, present on admission. - BISAP score of 4 conferring >15% risk of mortality. TIMBI-SHA SHOSHONE-II score 19 with and 11-18% risk of mortality. - IV fluids as above. - Patient NPO. - [place] score to be calculated 48 hours after admission 6. Metabolic and toxic encephalopathy, acute, present on admission. - Concern for toxic ingestion as patient has a history of heroin use, gabapentin misuse. Uncertain what else she might have consumed. - Urine tox in the ED positive for meth and heroin. - Gabapentin, ethylene glycol and methanol levels pending. - Nephrology evaluating for possible dialysis. - IV fluids as above. - CSF PCR negative for infection 7. Anion gap metabolic acidosis, acute, present on admission. - Secondary to sepsis, RADHA. - Continue IV fluids and correction of underlying problems. - ABG PRN for further monitoring. 8. Elevated transaminases, acute, present on admission. - Uncertain etiology. Concern for hepatitis given patient's illicit drug use. - Hepatitis panel ordered and pending. - Continue to monitor CMP. 9. Rhabdomyolysis, acute, present on admission. - CPK increasing with subsequent lab measurements. - Patient has essentially been in bed last 48-72 hours with fall on Sunday in the shower. - IV hydration ongoing as above. - Continue to monitor CPK level. 10. Hypertension, chronic, presume stable. - Patient has been hypotensive so will hold home medications. Home regimen includes clonidine 0.3 mg TID and triamterene-HCTZ 37.5/25 mg daily. 11. Depression with anxiety, chronic, presume stable. - Will hold home venlafaxine 75 mg daily at this time as patient is in CCU and NPO. 12. Chronic pain syndrome with opiate dependence, presume stable. - History of opiate habituation. Was being tapered down per office notes from Dr. Eli. - Will give no opiates during this admission if it can be avoided, especially while patient obtunded. - Due to kidney injury will also avoid NSAID's. - Could consider use of Tylenol but due to elevated transaminases would give less than 2 grams daily. 13. Alcohol use disorder, chronic. - Reported to ingest at least a bottle of wine daily. - While patient obtunded will give no scheduled benzodiazepines. - Monitor closely for signs of withdrawal and will initiate CIWA if needed. 14. Thyroid nodules, chronic, presume stable. - Recommend continued outpatient follow up. - Will not order TSH/T4 at this time as patient critically ill and this will likely return with low values for all. - Antiemetic available PRN. Disposition: Patient will likely be inpatient for the foreseeable future. Likely several days on the ventilator. PCP James Eli MD GI Prophylaxis: Proton Pump Inhibitor VTE Prophylaxis: Sub-Q Heparin (Unfractionated) Resuscitation Status: CPR: Attempt Resuscitation Attending Statement The patient was seen and examined together with Dr. Amin on 07/25/2016 and I agree with the history, exam and plan as outlined in the note above. . Car Amin DO Jul 25, 2016 06:54 Al Del Rosario MD Jul 28, 2016 18:32
[2016-07-26] VITALS (12 sets, daily range): BP systolic 140–166; BP diastolic 77–114; PULSE 97–109; RESP 19–23; O2SAT 95–100
[2016-07-26] MEDS: Albuterol-Ipratropium 3 mL Inhalation Solution NEB SCH ×4 (01:45→20:37)
[2016-07-26] MEDS: Chlorhexidine 0.12% 15 mL Oral Solution MT SCH ×5 (04:11→20:10)
--- NOTE | 2016-07-26 05:03 | ABG ---
DateTimeAnalyzed 04:59:00 -_ pH ____7.499 - 7.350 7.450 pCO2 ___34.2__ -mmHg 35.0 45.0 pO2 ___87.8__ -mmHg 69.0 116 HCO3- ___26.4__ -mmol/L 22.0 26.0 ABE ____3.6__ -mmol/L -2.0 2.0 tHb ___10.7__ -g/dL O2Hb ___95.1__ -% COHb ____1.0__ -% MetHb ____1.3__ -% sO2 ___97.3__ -% FIO2 ___40.0__ -% PEEP ____5.0__ -cmH2O Set_RR ___28.0__ -b/min Vt __330.0__ -L Drawn By RB - Date/Time Notified____ 05:03:00 -_ Spontaneous_RR ___15.0__ -b/min Oxygen Device 1 VENTILATOR - Notified By RB - Notified Whom ADELA F, RN - B 750 -mmHg tO2 ___14.4__ -Vol% Saw test _Positive -
[2016-07-26 05:09] LABS: Hepatitis A Antibody IgM Negative (Negative); Hepatitis B Core Antibody IgM Negative (Negative)
[2016-07-26 05:20] LABS: Mean Corpuscular Hemoglobin 31.6 pg (27.0-35.0); Mean Corpuscular Volume 91.7 fL (81-100); Platelet Count 129 bil/L (150-400)
[2016-07-26 05:43] LABS: BASOPHILS % (AUTO) 0 % (0-3); EOSINOPHILS % (AUTO) 0 % (0-5); MONOCYTES % (AUTO) 5 % (4-12); NEUTROPHILS % (AUTO) 85 % (40-74)
--- NOTE | 2016-07-26 05:52 | NUR ---
Mentation/Hemodynamics Patient tolerating vent with Fentanyl PRN, minimal secretions, ABG drawn by RT this AM, not following commands, no s/sx of pain noted, restless in bed and moving legs constantly, HR 100's to 110's, Esmolol gtt at 100mcg/kg/min, no BM this shift, 2000ml urine output, at bedside, uneventful shift.
[2016-07-26 06:08] LABS: Magnesium 1.5 mg/dL (1.6-2.6)
[2016-07-26] MEDS: Senna-Docusate 8.6-50 mg Tablet PO SCH (08:16)
[2016-07-26] MEDS: Heparin 5,000 Unit/mL Inj SUBQ SCH ×2 (08:17→15:31)
[2016-07-26] MEDS: Pantoprazole 4 mg/mL 10 mL Inj IVPUSH SCH ×2 (08:18→15:31)
[2016-07-26] MEDS: Azithromycin Inj 500 MG in Dextrose 5% w/Vial Mate 250 ML IV SCH (08:18)
[2016-07-26] MEDS: Esmolol 2,500 mg/250 mL NS 2,500,000 MCG in IV Premix 1 EACH IV SCH ×3 (08:22→20:18)
[2016-07-26] MEDS: D5 0.45% NaCl + KCl 20 mEq/L 1,000 ML IV SCH ×3 (08:23→20:10)
[2016-07-26] MEDS ORDERED: Magnesium Sulf 2 Gm/50mL Water 2 GM in IV Premix 1 EACH IV ONE (08:32)
--- NOTE | 2016-07-26 08:37 | PROG NOTE ---
[address] [address] PROGRESS NOTE PATIENT: ALESSANDRA WOOTEN : 1960 MR#: [id number] ADMIT: 07/24/2016 JOB ID: [id number] DATE: 07/26/2016 PULMONARY CRITICAL CARE FOLLOW UP NOTE: PROBLEM: 1. ARDS. 2. Bilateral pneumonia. 3. Septic shock. 4. Acute kidney injury. 5. Hyperkalemia. 6. Encephalopathy. 7. Multiple drug abuse including heroin, methadone, gabapentin and alcohol. Of note, her medications at home include clonidine, gabapentin, which she may have been abusing, venlafaxine. The patient unable to give any history at this point, on ventilator. OBJECTIVE: Temperature 37.6, pulse 100-110, respiratory rate 22 with ventilator set at 15, blood pressure 166/88 on esmolol 100 mcg per kg per minute. O2 sat on FiO2 40%, PEEP of 5, is 97%. I and O shows 3.3 liters in, 4.2 liters out. General appearance: Somewhat agitated. Moving her legs purposelessly. Over breathing the ventilator. Currently on no sedatives or opiates. Eyes: Pupils about 5-6 mm and reactive. Right seems a little bit larger than the left. Difficult to tell. Nose and throat could not be examined. Chest markedly distant breath sounds at the left base. Right lung field is relatively clear with tidal volume of 330 (without respiratory she is unable to say what this is in mL/kg) at PEEP of 5, peak inspiratory pressure 19. I think plateau is around 14. Hard to tell with the patient with the spontaneous breathing. Unable to tell measured PEEP. Heart: Regular rhythm. Somewhat rapid rate. Heart tones seem normal. Abdomen is soft. Nondistended. No apparent tenderness. Liver and spleen not palpable. Extremities warm, pink. Chest x-ray not available. LABORATORY: Shows a white count of 11,300 with 85 polymorphonuclears, 7 bands, 1 metamyelocyte (somewhat less of a left shift today than yesterday), 2 lymphs. Hemoglobin 10.3 and decreasing, was 11.5 yesterday and 13.8 the day previously. Platelet count 129,000 and decreasing. Sodium 148, potassium 3.9, chloride 110, carbon dioxide 23. BUN 64 and falling, creatinine 189 and falling, lactic acid 1.7. Calcium 9.3. Magnesium 1.5. Total bilirubin 0.7. AST falling at 192. ALT falling at 150. CK slowly decreasing is now 1287 from an apogee of 2103 48 hours previously. Albumin 2.7. Lipase 79, upper limits of normal being 60, down from 1274 48 hours previously. Procalcitonin 1.11 down from 3.32, on broad-spectrum antibiotics. Blood cultures negative at 24 hours. Nasopharyngeal swab for MRSA is negative. Sputum shows many polys. Mixed hsakir growing in sputum. Viral respiratory panel PCR is negative. Arterial blood gases on FiO2 of 50%, PEEP of 5, rate of 15 with the patient breathing 22 and shows a pO2 of 87, pCO2 of 34, pH of 7.49. ASSESSMENT: 1. Acute respiratory distress syndrome. The patient presumably on low tidal volume. Cannot tell without the respiratory sheet which has been down from the unit. Will need to speak with respiratory therapy later today when they are available. The patient is agitated. May have to do to some extent with the low tidal volumes we are delivering at a very slow rate with an inspiratory time of 0.9 seconds. Agitation should be expected in the absence of opiates or sedatives. 2. Hypertension, multifactorial. Could be due to use of drugs, withdrawal from drugs, lack of sedation, underlying agitation. 3. Antiseizure meds. Will obtain an EEG for evaluation of seizures. She is on antiseizure medicines presumably for some observed motor activity. 4. Sepsis. No organism forthcoming. Probably represents aspiration pneumonia. 5. Metabolic and respiratory alkalosis. Will not be able to deal with the respiratory alkalosis much as she is overriding the ventilator in terms of her rate and getting quite a low tidal volume. 6. Metabolic alkalosis evolving on the heels of renal failure. Presume it was from the bicarbonate drip that was instituted for her moderate acidemia. 7. Multiple electrolyte abnormalities. Needs magnesium. Also would be reasonable to check a phosphorus. Also needs free water. Continues to need volume. Do not think she is too overloaded at this point. I think we can get away with crystalloid maybe using D5 half normal saline to clear her water deficit which calculates to a little over 2 liters of free water. PLAN: 1. Discuss ventilator settings with respiratory therapy and primary care team as to our goals for ventilation. 2. Check pending chest x-rays. 3. Consider EEG if we are going to continue the antiseizure medications. 4. Magnesium replacement. 5. Free water replacement. 6. Probably needs volume and potassium to help with the alkalemia but continue to perfuse the kidneys so they can recover. 7. Check phosphorus. TIME SPENT: Time spent so far in critical care 60 minutes.
--- NOTE | 2016-07-26 08:52 | DRSVH ---
PROCEDURE: X-RAY CHEST ONE VIEW, PORTABLE ([id number]) INDICATIONS: intubated and on Ventilator TECHNIQUE: One view of the chest was acquired. COMPARISON: , CR, XR CHEST 1VW (PORTABLE), 07/25/2016, 2:00. FINDINGS: Surgical changes and devices: Endotracheal tube has been advanced tip now at the level just superior to the norma on the right. Stable positioning of right IJ CVL and nasogastric tube. Lungs and pleura: Persistent bibasilar airspace opacities, left greater than right. Small pleural ef fusion. Mediastinum: Mediastinal contours appear normal. Heart size is normal. Bones and chest wall: No suspicious bony lesions. Overlying soft tissues appear unremarkable. IMPRESSION: 1. Interval advancement of the ETT. The tip of the endotracheal tube is at the level of norma 2. Persistent bibasilar airspace opacities, left greater than right and there is a small left pleural effusion. Findings suggestive of a pneumonia and/or atelectasis. Sunshine Bishop retail sales advisor given results at 0850 hrs. 07/26/2016. Dictated by: Tex Jean RRA Interpreted: Ana Cristina Manjarrez MD on 07/26/2016 at 8:46 Transcribed by: ALFIE on 07/26/2016 at 8:52 Approved by: Ana Cristina Manjarrez M.D. on 07/26/2016 at 13:42
[2016-07-26] MEDS: Piperacillin-Tazo 3.375 Gm Inj 3.375 GM in Dextrose 5% Minibag Plus 50 ML IV SCH ×2 (09:33→15:30)
--- NOTE | 2016-07-26 10:11 | PROG NOTE ---
[address] [address] PROGRESS NOTE PATIENT: ALESSANDRA WOOTEN : 1960 MR#: [id number] ADMIT: 07/24/2016 JOB ID: [id number] DATE: 07/26/2016 INFECTIOUS DISEASE FOLLOW UP NOTE: REASON FOR FOLLOWUP: Bilateral aspiration pneumonia with maxillary sinusitis in a patient with altered mental status. INTERVAL HISTORY: The patient has improved considerably overnight, but her mental status remains profoundly abnormal. This morning we are not able to consistently arouse the patient and she is not following commands or interacting either with the medical staff or with her family in the room. This case was discussed in detail, however, with the patient's family as well as with the entire ICU team during rounds this morning in great detail. PHYSICAL EXAMINATION: Reveals an afebrile woman. Temperature 37.6, pulse is 110 and regular. Blood pressure 153/89. She is saturating well on 40%. Her pupils are equal, and she seems to track a bit. There is no conjunctivitis or scleral icterus. Oral endotracheal tube, oral gastric tube in good position. Right neck central IV line in good position without inflammation. Lungs with rales at both bases, left greater than right. Cardiac tones: Tachycardic without murmur but regular. Abdomen: Soft and nontender. Griffin catheter is present. Extremities well perfused. No cellulitis. LABORATORIES: Include white count 11,300, hematocrit 30, platelet count 129,000 which is declining, 7% bands today which is much better than yesterday's 25% bands. Creatinine has fallen tremendously from 7.89 to 1.89 and I assume she has normal renal function at this point, and will adjust antibiotics accordingly. CPK has gone from 1500 down to 1300. Albumin 2.6. Procalcitonin declined from 3.3 two days ago to 1.1 today. HIV, hep C negative. All cultures are negative including blood cultures, respiratory viral PCR, CSF, PCR and MRSA screen. Today's chest x-ray shows persistent bilateral infiltrates as before. IMPRESSION: This critically ill woman was admitted with abnormal mental status, respiratory failure and has proven to have aspiration pneumonia as well as sinusitis as demonstrated by CT scan. Gram stain of the sputum shows many polys and mixed organisms entirely compatible with a diagnosis of aspiration pneumonia. RECOMMENDATIONS: 1. Will continue with azithro for a total of five days. 2. Will continue with Zosyn for a total course of 5-7 days depending on her procalcitonin and white count. 3. The dose of Zosyn should be increased every 8 hours as she now has normal renal function. 4. We await the multiple pending cultures. 5. This case discussed extensively during ICU rounds.
--- NOTE | 2016-07-26 11:01 | PCM.PNNEPH ---
Subjective Date of Service Jul 26, 2016 Subjective Her kidney function has been improving. Her blood pressure has been on the high side. Esmolol was started. She is on vent support. Good urine output over 24 hours. Exam Vital Signs Vital Sign - Last Date Time Temp Pulse Resp B/P Pulse Ox O2 Delivery O2 Flow Rate FiO2 07/26/16 10:26 102 150/102 97 40 07/26/16 08:00 37.6 22 Mechanical Ventilator 07/24/16 12:30 4.00 Intake and Output 07/25/16 07/25/16 07/26/16 Cumulative From/Thru 15:00 23:00 07:00 07/24/16 09:02 - 07/26/16 05:37 Intake Total 1505 ml 1891 ml 90110 ml Output Total 2000 ml 2000 ml 7425 ml Balance -495 ml -109 ml 4543 ml Intake IV Total 1505 ml 1891 ml 86833 ml Output Urine Total 2000 ml 2000 ml 7425 ml Gastric Drainage Total 0 ml 0 ml # Bowel Movements 0 0 0 Exam GENERAL APPEARANCE: Intubated, sedated. When the letter of support. HEENT: Atraumatic, No pallor. No jaundice. No JVD. Right triple-lumen in place on the right IJ. HEART: Regular rhythm. Normal S1, S2. Tachycardic. No murmurs, rubs, or gallops. LUNGS: Intubated on the full ventilator support, equal breath sounds bilaterally , no wheezing, no rhonchi. ABDOMEN: Soft, nontender, nondistended. Decreased bowel sounds. EXTREMITY: No significant edema, cyanosis or clubbing of fingers. Multiple bruises noted on the lower extremities. : Griffin catheter in place with yajaira urine. Lab and Diagnostics Result Diagram: 07/26/16 0510 07/26/16 0510 X-Rays, CTs and MRIs PROCEDURE: CT ABDOMEN AND PELVIS WITHOUT CONTRAST IMPRESSION: 1. Severe bilateral lower lobe pneumonia. 2. Distended distal small bowel loops, suggestive of gastroenteritis. 3. Thickening of the transverse, descending, and sigmoid colon, with differential considerations including ischemia, infection, and inflammation. 4. Fecal impaction within the rectum. 5. Proctitis. 6. Normal appendix. 7. Findings suggestive of pancreatitis; recommend correlation with laboratory testing. 8. Nonobstructing left nephrolith. 9. Moderately distended gallbladder. If there is clinical evidence for cholecystitis, ultrasound is recommended for further assessment. Dictated by: Ambreen Patel M.D. on 07/24/2016 at 11:04 PROCEDURE: CT BRAIN WITHOUT CONTRAST IMPRESSION: 1. No acute intracranial disease process. 2. Complete opacification of the right maxillary sinus which could be inflammatory or neoplastic. Dictated by: Sheyla Chinchilla MD, PhD on 07/24/2016 at 9:18 PROCEDURE: X-RAY CHEST ONE VIEW, PORTABLE IMPRESSION: Suspect bilateral lower lobe pneumonia. Dictated by: Ana Cristina Manjarrez M.D. on 07/24/2016 at 11:00 12-lead ECG Rate 110 QTc 433 Sinus tachycardia with no acute ischemic changes Cardiac Echo Impressions Echocardiogram Report Interpretation Summary The patient was in sinus tachycardia with heart rates between 123-127 bpm during the exam. The left ventricle is normal in size. The ejection fraction is estimated to be 65-70%. The right ventricle is normal in size and function. There is mild mitral regurgitation. There is a moderate left-sided pleural effusion. No obvious valvular vegetation seen. However if clinical suspicion for endocarditis is high, consider SOPHIE. Reading Physician:AM Plan Impression 1. Acute kidney injury. The etiology is multifactorial secondary to prerenal azotemia, NSAIDs, sepsis, and component of acute tubular necrosis. 2. Hypernatremia 3. Hyperkalemia, resolved. 4. Anion gap metabolic acidosis, improved. 5. Sepsis, aspiration pneumonia, acute sinusitis. 6. Polysubstance abuse. 7. Underlying disease of hypertension. 8. History of depression and anxiety disorder. Plan Per renal standpoint, we will continue supportive treatment. Heat daily BMP. Continue current IV fluid D5 half-normal saline plus potassium 20 meq run at 100 mL per hour. Maria Luisa Jauregui MD Jul 26, 2016 11:01
[2016-07-26] MEDS: Norepineph 8,000 mCg/250 mL NS 8,000 MCG in IV Premix 1 EACH IV SCH (12:58)
[2016-07-26] MEDS: Dextrose 5% 0.45% NaCl 1,000 ML IV SCH (12:59)
--- NOTE | 2016-07-26 14:11 | NUR ---
NUTRITION FOLLOW-UP: Assess: 56 YO F admitted to CCU with ARDS, bilateral aspiration pneumonia, septic shock, acute kidney injury, hyperkalemia, encephalopathy, multiple drug abuse, including heroin, methadone, gabapentin, and alcohol. Patient is currently intubated with encephalopathy, possible anoxic brain injury. Per notes, pt has had no food or drink since Sunday (07/21). Plan for today is EEG, MRI, volume and potassium replacement. PMHX: HTN, depression, anxiety, chronic pain, degenerative disc disease. DIET: NPO. LABS: Na 148, Chloride 110, BUN 64, Cr 1.89, Glu 128, Mg 1.5, AST 192, ALT 150, Alb 2.6, Lipase 79. MEDICATIONS: Reviewed. Fentanyl, esmolol, senna, fleets enema, ativan. GI: No BM noted. SKIN: No issues noted. ANTHROPOMETRICS: Wt: 83.2 kg, BMI 28.7 kg/m2, Admit wt: 82.1 kg. ESTIMATED NEEDS: VENT/RADHA Calories: 5514-9266 kcal/day (20-25 kcal/kg BW) Protein: 99-123 g/day (1.2-1.5 g/kg BW) NUTRITION DIAGNOSIS: 1) Inadequate oral intake related to decreased ability to consume sufficient energy as evidenced by NPO/VENT status - PERSISTS. INTERVENTION: 1) Will await plan of care decisions. If pt remains intubated, recommend initiating nutrition support in the next 24 hours. Recommend initiate Vital 1.5 at trophic rate 10 ml/hr x 24 hr. Once tolerance established, recommend advance 5 ml every 4 hr. to goal rate 55 ml/hr. In addition, recommend three packets ProSource per day. Enteral feeding to include ProSource will provide 1815 kcal, 115 g protein, sufficient to meet 100% nutrient needs. MONITOR/EVALUATE: NPO/Vent status, orders for nutrition support, labs, GI, POC, nutrition status. Follow per high nutrition risk guidelines.
--- NOTE | 2016-07-26 14:37 | NUR ---
Remains off Fentanyl infusion over 24 hours, no bolus doses since overnight babysitter. Restless, moving lower extremities frequently, opening eyes with no tracking, following no commands. HR 90-110s, remains on esmolol gtt, 75mcg. EEG in process. Brain MRI planned for 1644. and daughter at bedside.
--- NOTE | 2016-07-26 15:06 | NUR ---
Social Work Note: Screen Note Data& Assessment: EMR reviewed. Lacey Hyatt is a 56 year old female admitted on 07/24/2016 for acute renal failure and altered mental status. Pt has [facility] insurance coverage and sees James Eli for primary care. Per MD, pt prognosis is poor and pt is not responsive at this time. MRI Scheduled for this afternoon. SW to continue to follow for pt prognosis, MD recommendations and any pt family needs. Plan: Pt prognosis is poor per MD. SW to continue to follow for pt prognosis, MD recommendations and any pt family needs. EVERT Lujan
[2016-07-26] MEDS: fentaNYL 2,500 mCg/250 mL 2,500 MCG in IV Premix 1 EACH IV SCH (15:31)
--- NOTE | 2016-07-26 17:38 | PCM.PNMED ---
Subjective Date of Service Jul 26, 2016 Subjective overnight: The patient remained tachycardic overnight with heart rate in the 100s to 110s on esmolol drip at 100 mics per kilogram per minute, no acute events otherwise noted Today: Patient remains intubated and sedated. Arterial blood gas shows alkalosis with decreased CO2. RT advised to attempt to decrease respiratory rate however patient is overbreathing the vent. Sodium bicarbonate IV discontinued on July 25 at 2 AM, we will likely see improvement and alkalosis with increased temporal relationship from last bicarbonate dosing. Kidney injury and pancreatitis significantly improved since admission. Pro-Sudheer has also dropped. Patient to have EEG and MRI performed today. Exam Vital Signs Vital Sign - Last Date Time Temp Pulse Resp B/P Pulse Ox O2 Delivery O2 Flow Rate FiO2 07/26/16 05:09 103 166/88 97 40 07/26/16 04:12 37.6 22 Mechanical Ventilator 07/24/16 12:30 4.00 Intake and Output 07/25/16 07/25/16 07/26/16 Cumulative From/Thru 15:00 23:00 07:00 07/24/16 09:02 - 07/26/16 05:37 Intake Total 1505 ml 1891 ml 45526 ml Output Total 2000 ml 2000 ml 7425 ml Balance -495 ml -109 ml 4543 ml Intake IV Total 1505 ml 1891 ml 65468 ml Output Urine Total 2000 ml 2000 ml 7425 ml Gastric Drainage Total 0 ml 0 ml # Bowel Movements 0 0 0 Exam Gen.: Mildly obese middle-aged female appearing older than stated age intubated and sedated Eyes: Pupillary athetosis with spasmodic rhythmic dilation and contraction of bilateral pupils and icteric sclera noninjected conjunctiva HENT: atraumatic, normocephalic, ET in place Mucus membranes dry, no central cyanosis noted Neck: supple, trachea midline, right IJ in place, No JVD noted Cardiac: tachycardic with regular rhythm and no murmur appreciated Lungs: Mild coarse sounding throughout worse in the bases left greater than right without significant expiratory wheezes heard today prior anteriorly abdomin: Patient grimaces with palpation possibly consistent with tenderness, non-distended, hypoactive bowel tones, soft : Griffin implies Extremities: Pulses intact at radial and dorsalis pedis bilaterally, soft restraints at wrists, No cyanosis, clubbing or edema Neurologic: Pupillary athetosis, general neurologic status could not be evaluated as patient is intubated and sedated Psychiatric: status could not be evaluated patient is sedated and intubated Lab and Diagnostics Result Diagram: 07/26/16 0510 07/26/16 0510 X-Rays, CTs and MRIs PROCEDURE: CT ABDOMEN AND PELVIS WITHOUT CONTRAST IMPRESSION: 1. Severe bilateral lower lobe pneumonia. 2. Distended distal small bowel loops, suggestive of gastroenteritis. 3. Thickening of the transverse, descending, and sigmoid colon, with differential considerations including ischemia, infection, and inflammation. 4. Fecal impaction within the rectum. 5. Proctitis. 6. Normal appendix. 7. Findings suggestive of pancreatitis; recommend correlation with laboratory testing. 8. Nonobstructing left nephrolith. 9. Moderately distended gallbladder. If there is clinical evidence for cholecystitis, ultrasound is recommended for further assessment. Dictated by: Ambreen Patel M.D. on 07/24/2016 at 11:04 PROCEDURE: CT BRAIN WITHOUT CONTRAST IMPRESSION: 1. No acute intracranial disease process. 2. Complete opacification of the right maxillary sinus which could be inflammatory or neoplastic. Dictated by: Sheyla Chinchilla MD, PhD on 07/24/2016 at 9:18 PROCEDURE: X-RAY CHEST ONE VIEW, PORTABLE IMPRESSION: Suspect bilateral lower lobe pneumonia. Dictated by: Ana Cristina Manjarrez M.D. on 07/24/2016 at 11:00 12-lead ECG Rate 110 QTc 433 Sinus tachycardia with no acute ischemic changes Cardiac Echo Impressions Echocardiogram Report Interpretation Summary The patient was in sinus tachycardia with heart rates between 123-127 bpm during the exam. The left ventricle is normal in size. The ejection fraction is estimated to be 65-70%. The right ventricle is normal in size and function. There is mild mitral regurgitation. There is a moderate left-sided pleural effusion. No obvious valvular vegetation seen. However if clinical suspicion for endocarditis is high, consider SOPHIE. Reading Physician:KIYA Assessment & Plan Patient is a 56 year old female with a history of HTN, anxiety and osteoarthritis with chronic narcotic use. She presented to [facility] on 07/24/16 via EMS with altered mental status. Found to have hyperkalemia, pneumonia and an significant kidney injury. Admitted for management of her numerous co- existing conditions to the ICU for what is likely to be a prolonged hospital admission. Hospital day 3 1. Severe sepsis, acute, present on admission. - Criteria met: tachycardia (105), fever (38.2), respiratory and possibly GI source, RADHA and encephalopathy and hypotension. - Fluid resuscitation given in the ED. Will continue NS 50 ml/hr as well as a bicarb drip at 100 ml/hr. - Norepinephrine to be used to maintain a MAP >65. - Treat the underlying infections as below. - Continue to monitor CBC, procalcitonin. - Limited echo ordered to evaluate left ventricular function in the setting of this critical illness shows intact ejection fraction - Notable bandemia improved to 7% from 25% day prior 2. Metabolic and toxic encephalopathy, acute, present on admission, under evaluation - Concern for toxic ingestion as patient has a history of heroin use, gabapentin misuse. Uncertain what else she might have consumed. - Urine tox in the ED positive for meth and heroin. - Gabapentin, ethylene glycol and methanol levels pending. - Nephrology evaluating for possible dialysis. - IV fluids as above. - CSF PCR negative for infection - Continue sedation vacations in attempt to wake the patient however patient appears significantly older responsive - EEG and MRI imaging of the brain performed without contrast to look for possible etiologies of encephalopathy - Keppra for possible seizure activity. 3. Bilateral pneumonia, acute, present on admission. - Zosyn and azithromycin started in the ED. Will continue those at this time ( day 3 of antibiotics). - Viral PCR panel ordered all negative - Strep pneumo and legionella urine antigens ordered negative - Sputum culture ordered and pending. May need to ask respiratory therapy to suction a good sputum sample. - MRSA screening ordered negative - O2 supplementation to keep O2 saturations 92-96%. - DuoNeb available QID. Albuterol neb available Q2 PRN. 4. Acute kidney injury, present on admission. Improving - IV fluids initiated in the ED. Continue as above in #1. - Ethylene glycol and methanol levels are ordered and pending. - Dr. Jeff of nephrology has been consulted and we appreciate her input. - Significantly improved today - Continue to monitor BMP. 5. Pancreatitis, acute, present on admission. Improvement - BISAP score of 4 conferring >15% risk of mortality. HOONAH-II score 19 with and 11-18% risk of mortality. - IV fluids as above. - Patient NPO. - Arcquel score to be calculated 48 hours after admission 6. Anion gap metabolic acidosis, acute, present on admission, improved - Secondary to sepsis, RADHA. - Continue IV fluids and correction of underlying problems. - ABG PRN for further monitoring. 7. Hyperkalemia, acute, present on admission. Resolved - Patient received insulin and glucose, albuterol, calcium gluconate, sodium bicarb in the ED with improvement on repeat BMP. - Improved - Will continue to monitor BMP and correct as needed. 8. Elevated transaminases, acute, present on admission. Improved - Uncertain etiology. Concern for hepatitis given patient's illicit drug use. - Hepatitis panel ordered and pending. - Continue to monitor CMP. 9. Rhabdomyolysis, acute, present on admission. Improved - CPK increasing with subsequent lab measurements. - Patient has essentially been in bed last 48-72 hours with fall on Sunday in the shower. - IV hydration ongoing as above. - Continue to monitor CPK level. 10. Hypertension, chronic, presume stable. - Patient has been hypotensive so will hold home medications. Home regimen includes clonidine 0.3 mg TID and triamterene-HCTZ 37.5/25 mg daily. 11. Depression with anxiety, chronic, presume stable. - Will hold home venlafaxine 75 mg daily at this time as patient is in CCU and NPO. 12. Chronic pain syndrome with opiate dependence, presume stable. - History of opiate habituation. Was being tapered down per office notes from Dr. Eli. - Will give no opiates during this admission if it can be avoided, especially while patient obtunded. - Due to kidney injury will also avoid NSAID's. - Could consider use of Tylenol but due to elevated transaminases would give less than 2 grams daily. 13. Alcohol use disorder, chronic, stable - Reported to ingest at least a bottle of wine daily. - While patient obtunded will give no scheduled benzodiazepines. - Monitor closely for signs of withdrawal and will initiate CIWA if needed. - Supplement Thiamine 14. Thyroid nodules, chronic, presume stable. - Recommend continued outpatient follow up. - Will not order TSH/T4 at this time as patient critically ill and this will likely return with low values for all. - Antiemetic available PRN. Disposition: Patient will likely be inpatient for the foreseeable future. Likely several days on the ventilator. PCP James Eli MD GI Prophylaxis: Proton Pump Inhibitor VTE Prophylaxis: Sub-Q Heparin (Unfractionated) VTE Mechanical Devices: Intermittant Pneumatic CD Resuscitation Status: CPR: Attempt Resuscitation Attending Statement The patient was seen and examined together with Dr. Amin on 07/26/2016 and I agree with the history, exam and plan as outlined in the note above. . Car Amin DO Jul 26, 2016 06:54 Al Del Rosario MD Jul 28, 2016 18:33
--- NOTE | 2016-07-26 17:47 | NUR ---
to and from mri without incident 1 hour.
[2016-07-26] MEDS: Thiamine Inj 200 MG in Dextrose 5% 50 ML IV SCH (18:29)
--- NOTE | 2016-07-26 18:31 | DRSVH ---
PROCEDURE: MRI BRAIN WITHOUT CONTRAST ([id number]) INDICATIONS: Obtunded, minimal neurological activity TECHNIQUE: Noncontrast axial T1 spin echo, axial T2 fast spin echo, sagittal and axial FLAIR, coronal T2 fast sp in echo, axial gradient echo, axial diffusion and ADC through the brain. COMPARISON: None. FINDINGS: Image quality: Excellent. CSF Spaces: Basal cisterns are patent. No extra-axial fluid collections. Ventricles are normal in size and shape. Brain: No intracranial masses or hemorrhage. Punctate signal change in the left frontal white matte r on image 16 series 4, of unknown etiology or clinical significance. Styles/white matter interface is normal. Brainstem appears normal. Diffusion-weighted images demonstr ate no acute ischemic insult. No chronic ischemic insults. Normal intravascular flow voids are pres ent. Skull and face: Calvarium has normal marrow signal. Orbits appear normal. Sinuses: Severe right maxillary sinus disease IMPRESSION: Severe right maxillary sinus disease otherwise unremarkable examination as above. Dictated by: Kendrick Moran M.D. on 07/26/2016 at 18:26 Approved by: Kendrick Moran M.D. on 07/26/2016 at 18:30
--- NOTE | 2016-07-26 21:45 | PROCED ---
[address] [address] EEG PATIENT: ALESSANDRA WOOTEN : 1960 MR#: [id number] ADMIT: 07/24/2016 JOB ID: [id number] DATE: 07/26/2016 HISTORY: The patient is a 56-year-old woman with a history of hypertension, anxiety, osteoarthritis and chronic narcotic use noted to have altered mental status. TECHNICAL DESCRIPTION: This digital EEG was recorded using 25 scalp and ear, and two EKG electrodes. It was reviewed in bipolar and referential montages following reformatting in the 10-20 [employer] Electrode Placement System. During this recording, the patient was noted to be lethargic. Hyperventilation was not performed. Photic stimulation from 1-30 hertz did not elicit any photic driving response. There was no clear background activity noted. This EEG is comprised of diffuse high amplitude delta activity at times with a triphasic-like appearance. There is no clear posterior dominant rhythm. No sleep was appreciated. The patient did not respond to her name being called or her eyes being opened. There was a mild degree of myogenic and movement artifact. There appeared to be intermittent intermixed faster frequencies in the theta range, however, these occurred rarely. There were no focal, lateralized, or epileptiform discharges noted. There were no seizures seen. The EKG rhythm strip revealed a heart rate of 60 to 80 beats per minute with no apparent arrhythmias. IMPRESSION: This EEG performed in the lethargic state is abnormal. The diffuse polymorphic slowing principally high amplitude delta and, at times, appearing triphasic-like, is suggestive of moderate cerebral cortical dysfunction/encephalopathy. This is nonspecific and may be seen in a wide variety of different clinical conditions, including toxic, metabolic, hypoxic, inflammatory, autoimmune, and infectious states. It may also be seen in the setting of sedative agents. If clinically indicated, I do recommend a repeat electroencephalogram if the patient is noted to become more alert or if there are any other new neurologic changes. Clinical correlation is advised. [facility]
[2016-07-27] VITALS (14 sets, daily range): BP systolic 130–169; BP diastolic 78–104; PULSE 86–102; RESP 18–28; O2SAT 95–98
[2016-07-27] MEDS: Heparin 5,000 Unit/mL Inj SUBQ SCH ×3 (00:25→16:11)
[2016-07-27] MEDS: Chlorhexidine 0.12% 15 mL Oral Solution MT SCH ×6 (00:25→20:37)
[2016-07-27] MEDS: Piperacillin-Tazo 3.375 Gm Inj 3.375 GM in Dextrose 5% Minibag Plus 50 ML IV SCH ×3 (00:25→16:11)
[2016-07-27] MEDS: Albuterol-Ipratropium 3 mL Inhalation Solution NEB SCH ×4 (02:24→20:08)
--- NOTE | 2016-07-27 05:12 | ABG ---
DateTimeAnalyzed 05:10:00 -_ pH ____7.531 - 7.350 7.450 pCO2 ___29.3__ -mmHg 35.0 45.0 pO2 ___68.9__ -mmHg 69.0 116 HCO3- ___24.4__ -mmol/L 22.0 26.0 ABE ____2.5__ -mmol/L -2.0 2.0 tHb ___10.5__ -g/dL O2Hb ___93.4__ -% COHb ____1.2__ -% MetHb ____1.2__ -% sO2 ___95.7__ -% FIO2 ___21.0__ -% PEEP ____5.0__ -cmH2O Set_RR ___20.0__ -b/min Vt __400.0__ -L Drawn By MD - Date/Time Notified____ 05:12:00 -_ Spontaneous_RR ___15.0__ -b/min Oxygen Device 1 VENTILATOR - Notified By MD - Notified Whom RN J.LEON - B 758 -mmHg tO2 ___13.8__ -Vol% Saw test N/A -
[2016-07-27 06:02] LABS: BASOPHILS % (AUTO) 0.1 % (0-3); EOSINOPHILS % (AUTO) 0.1 % (0-5); MONOCYTES % (AUTO) 7.9 % (4-12); Mean Corpuscular Hemoglobin 30.9 pg (27.0-35.0); NEUTROPHILS % (AUTO) 85.6 % (40-74); Platelet Count 123 bil/L (150-400)
[2016-07-27] MEDS: D5 0.45% NaCl + KCl 20 mEq/L 1,000 ML IV SCH (06:11)
--- NOTE | 2016-07-27 06:14 | NUR ---
Neuro/Hemodynamics Patient remains on vent, no sedation or fentanyl given this shift, no purposeful movements and only responds to painful stimuli. Pupils equal 2mm. Patient did not respond to sternal rub and only moved eyebrows slightly with nail bed pressure, calm and not near as restless as yesterday, SBP 120-140's and HR 70's at this time, Esmolol gtt titrated off and has been off since 0300, VSS, sleeping in room, updated on POC, uneventful shift.
[2016-07-27 06:17] LABS: INR 1.05 ratio
[2016-07-27 06:36] LABS: ERYTHROCYTE SEDIMENTATION RATE 41 mm/hr (0-40)
[2016-07-27 06:41] LABS: Magnesium 1.6 mg/dL (1.6-2.6); Phosphorus 1.9 mg/dL (2.5-4.9)
[2016-07-27] MEDS: Esmolol 2,500 mg/250 mL NS 2,500,000 MCG in IV Premix 1 EACH IV SCH (07:21)
[2016-07-27] MEDS: Pantoprazole 4 mg/mL 10 mL Inj IVPUSH SCH ×2 (07:21→16:11)
[2016-07-27] MEDS: Azithromycin Inj 500 MG in Dextrose 5% w/Vial Mate 250 ML IV SCH (07:23)
[2016-07-27] MEDS: Senna-Docusate 8.6-50 mg Tablet PO SCH (07:23)
[2016-07-27] MEDS: Thiamine Inj 200 MG in Dextrose 5% 50 ML IV SCH (07:48)
--- NOTE | 2016-07-27 09:26 | PROG NOTE ---
[address] [address] PROGRESS NOTE PATIENT: ALESSANDRA WOOTEN : 1960 MR#: [id number] ADMIT: 07/24/2016 JOB ID: [id number] DATE: 07/27/2016 INFECTIOUS DISEASE FOLLOW UP NOTE: REASON FOR FOLLOWUP: Bilateral aspiration pneumonia with right maxillary sinusitis in a patient with ventilatory dependent respiratory failure. INTERVAL HISTORY: Recall this is our 56-year-old woman with a history of polysubstance abuse who was admitted with altered mental status and respiratory failure. She continues to be ventilator dependent as she is extremely lethargic though ventilating fairly easily from a mechanical point of view. This morning with great difficulty and yelling at the patient we were able to get her to awaken for just moments at a time before she drifts off again. She does not nod her head or answer questions in any useful manner. This case was discussed at the bedside though with the patient's and later with the ICU team. PHYSICAL EXAMINATION: The patient remains intubated and is not sedated though she is very lethargic. Temperature 37.4, and she has been afebrile since the day of admission three days ago. Her pulse is in the 80s-90s. The rate is regular and sinus rhythm shows on the monitor. Blood pressure 149/104. She is on 40% FiO2 and 5 of PEEP and saturating extremely well. Her eyes are without conjunctivitis. As noted, she will briefly open her eyes with stimulation but that is about the level of her mental status. Sinuses appear to be nontender but it is very difficult to say given her altered mental status. Oral gastric and oral endotracheal tube are in good position. The patient has a central line which appears free of infection at least externally. The neck without notable abnormalities. Lungs with a few crackles at the bases bilaterally but reasonably good air flow. Cardiac tones regular rate and rhythm, very crisp. No murmurs, rubs or gallops. The abdomen feels a bit full especially on the right mid area but I cannot detect any focal discrete mass and this may be simply stool in the bowel. No pancreatic or epigastric masses appreciated and the abdomen seems nontender though other examiners have noted possible tenderness in the flanks but I am not seeing that during my examination. Griffin catheter is present. External genitalia normal. The extremities are very well-perfused and without skin rash or edema. LABORATORIES: Include white count drifting up now 14,400, platelet count 123,000. Her bandemia, however, has resolved. Creatinine is much, much improved. Recall that when she came in, her creatinine was over 11. It is now 1.24 and one would assume her renal function is completely normal at this point, and I suspect her creatinine clearance is probably close to 100 given the daily declines in creatinine she is having. Magnesium 1.6. AST and ALT are coming steadily down. AST 165, ALT 125. Alk phos normal at 93. CRP is of concern. It is 22.3 which is extraordinarily elevated. Albumin 2.5. Lipase is down to 77. It had started as high as 1200. Gabapentin level has returned at 36 which is extraordinarily elevated and that is from admission and may suggest part of what happened to her mental status before admission as a rumor she may have taken large amounts of gabapentin. Her spinal fluid negative. Hepatitis serologies completely normal. Blood cultures remain negative. Spinal fluid PCR is negative. Respiratory viral PCR is negative. Urine pneumococcal antigen negative. Today's chest x-ray was reviewed. It continues to show bibasilar infiltrates. Yesterday's brain MRI scan was notable for severe right maxillary sinus disease, otherwise negative. Recall that a CT scan done three days ago on admission showed bilateral lower lobe pneumonia as well as distended loops of bowel with thickening of the colon and fecal impaction. IMPRESSION: This is a difficult case of a woman who was admitted now three days ago with altered mental status and respiratory failure. It would appear that her altered mental status was most likely on the basis of polysubstance abuse including perhaps large amounts of gabapentin with alcohol and other drugs also figuring in the mix. At this point, she is relatively stable on the ventilator but her diminished mental status is the main problem which limits her extubation. In terms of infection, we have no positive cultures and our likely sources of infection include right maxillary sinusitis and bilateral pneumonia. Her white count is slowly climbing and her platelets are dropping, both of which are of concern and her CRP is extraordinarily high. On the positive side, however, her lipase and liver function tests are rapidly improving and her renal function has gone from a creatinine greater than 11 to normal over just a period of three days. I suspect the patient does have some degree of a minor underlying bilateral aspiration pneumonia as well as the sinusitis we clearly see on MRI scan. This plus her recent pancreatitis, acute renal failure and polysubstance abuse has likely contributed to her very altered but perhaps slowly improving mental status. RECOMMENDATIONS: 1. After extensive discussions with the team, we plan to continue with the same antibiotics which would include a five day course of azithromycin and a probable seven day course of Zosyn depending on her clinical course. 2. Will continue to closely follow white count, platelets, CRP, liver function tests and lipase. 3. As noted this case discussed extensively with the nursing, respiratory staff and ICU team during rounds.
[2016-07-27] MEDS: Lactulose 20 Gm/30 mL 30 mL Syrup PO SCH ×4 (09:46→20:30)
[2016-07-27] MEDS ORDERED: Potassium Phos (mMol) Inj 30 MMOL in Dextrose 5% 500 ML IV ONE (10:05)
[2016-07-27] MEDS ORDERED: Magnesium Sulf 4 Gm/100 mL H2O 4 GM in IV Premix 1 EACH IV ONE (10:05)
--- NOTE | 2016-07-27 10:34 | NUR ---
NUTRITION FOLLOW-UP: Assess: 56 YO F admitted to CCU with ARDS, bilateral aspiration pneumonia, septic shock, acute kidney injury, hyperkalemia, encephalopathy, multiple drug abuse, including heroin, methadone, gabapentin, and alcohol. Patient remains intubated, with encephalopathy, with abnormal EEG. Her mental status is preventing extubation. Per discussion during CCU rounds, pt. will receive lactulose today, as she has had no BM since admit since admit x 3 D. Once her GI tract is functioning, enteral feeding authorized to be initiated. Per notes, pt has had no food or drink since Sunday (07/21). Unsigned enteral orders in chart for MD authorization. PMHX: HTN, depression, anxiety, chronic pain, degenerative disc disease. DIET: NPO. LABS: Na 146, Chloride 112, BUN 42, Cr 1.24, Glu 129, Phos 1.9, AST 165, ALT 125, CRP 22.3, Alb 2.5. MEDICATIONS: Reviewed. Norepi, keppra, senna, lactulose. GI: No BM noted. SKIN: No issues noted. ANTHROPOMETRICS: Wt: 81.4 kg, BMI 28.0 kg/m2, Admit wt: 82.1 kg. ESTIMATED NEEDS: VENT/RADHA Calories: 3837-2743 kcal/day (20-25 kcal/kg BW) Protein: 99-123 g/day (1.2-1.5 g/kg BW) NUTRITION DIAGNOSIS: 1) Inadequate oral intake related to decreased ability to consume sufficient energy as evidenced by NPO/VENT status - PERSISTS. INTERVENTION: 1) Unsigned enteral feeding orders in chart for MD authorization, as follows. Initiate Vital 1.5 at trophic rate 10 ml/hr x 24 hr. Once tolerance established, recommend advance 5 ml every 4 hr. to goal rate 55 ml/hr. In addition, recommend three packets ProSource per day. Enteral feeding to include ProSource will provide 1815 kcal, 115 g protein, sufficient to meet 100% nutrient needs. MONITOR/EVALUATE: NPO / vent status, orders for nutrition support, labs, GI, POC, nutrition status. Follow per high nutrition risk guidelines.
--- NOTE | 2016-07-27 10:38 | DRSVH ---
PROCEDURE: X-RAY CHEST ONE VIEW, PORTABLE ([id number]) INDICATIONS: acute respiratory failure TECHNIQUE: One view of the chest was acquired. COMPARISON: [facility], CR, XR CHEST 1VW (PORTABLE), 07/26/2016, 5:20. FINDINGS: Surgical changes and devices: Endotracheal tube has been retracted tip now several centimeters above the norma. Stable positioning of right IJ CVL and nasogastric tube. Lungs and pleura: Persistent bibasilar airspace opacities, left greater than right. Small pleural ef fusion. Mediastinum: Mediastinal contours appear normal. Heart size is normal. Bones and chest wall: No suspicious bony lesions. Overlying soft tissues appear unremarkable. IMPRESSION: 1. Interval retraction of ETT. 2. Persistent bibasilar airspace opacities and small pleural effusion. Dictated by: Tex Jean [facility] Interpreted: Sheyla Chinchilla MD on 07/27/2016 at 10:37 Transcribed by: LALITO on 07/27/2016 at 10:38 Approved by: Sheyla Chinchilla MD, PhD on 07/27/2016 at 16:51
--- NOTE | 2016-07-27 10:45 | PCM.PNNEPH ---
Subjective Date of Service Jul 27, 2016 Subjective Ventilator dependent. Off sedation. Obtunded, unresponsive to verbal or painful stimuli. Good urine output. Kidney function continues to improve. Exam Vital Signs Vital Sign - Last Date Time Temp Pulse Resp B/P Pulse Ox O2 Delivery O2 Flow Rate FiO2 07/27/16 07:57 99 149/104 98 40 07/27/16 07:29 37.4 22 Mechanical Ventilator 07/24/16 12:30 4.00 Intake and Output 07/26/16 07/26/16 07/27/16 Cumulative From/Thru 15:00 23:00 07:00 07/24/16 09:02 - 07/27/16 04:46 Intake Total 2430 ml 1897 ml 66680 ml Output Total 2050 ml 1075 ml 92458 ml Balance 380 ml 822 ml 5745 ml Intake IV Total 2370 ml 1897 ml 37906 ml Tube Irrigant 60 ml 0 ml 60 ml Output Urine Total 1850 ml 1050 ml 36630 ml Gastric Drainage Total 200 ml 25 ml 225 ml # Bowel Movements 0 0 Exam GENERAL APPEARANCE: Intubated, on vent support. HEENT: Atraumatic, No pallor. No jaundice. No JVD. Right triple-lumen in place on the right IJ. HEART: Regular rhythm. Normal S1, S2. No murmurs, rubs, or gallops. LUNGS: Intubated on the full ventilator support, equal breath sounds bilaterally , no wheezing, no rhonchi. ABDOMEN: Soft, nontender, nondistended. Decreased bowel sounds. EXTREMITY: No significant edema, cyanosis or clubbing of fingers. Multiple bruises noted on the lower extremities. : Griffin catheter in place with yajaira urine. Lab and Diagnostics Result Diagram: 07/27/16 0537 07/27/16 0537 X-Rays, CTs and MRIs PROCEDURE: CT ABDOMEN AND PELVIS WITHOUT CONTRAST IMPRESSION: 1. Severe bilateral lower lobe pneumonia. 2. Distended distal small bowel loops, suggestive of gastroenteritis. 3. Thickening of the transverse, descending, and sigmoid colon, with differential considerations including ischemia, infection, and inflammation. 4. Fecal impaction within the rectum. 5. Proctitis. 6. Normal appendix. 7. Findings suggestive of pancreatitis; recommend correlation with laboratory testing. 8. Nonobstructing left nephrolith. 9. Moderately distended gallbladder. If there is clinical evidence for cholecystitis, ultrasound is recommended for further assessment. Dictated by: Ambreen Patel M.D. on 07/24/2016 at 11:04 PROCEDURE: CT BRAIN WITHOUT CONTRAST IMPRESSION: 1. No acute intracranial disease process. 2. Complete opacification of the right maxillary sinus which could be inflammatory or neoplastic. Dictated by: Sheyla Chinchilla MD, PhD on 07/24/2016 at 9:18 PROCEDURE: X-RAY CHEST ONE VIEW, PORTABLE IMPRESSION: Suspect bilateral lower lobe pneumonia. Dictated by: Ana Cristina Manjarrez M.D. on 07/24/2016 at 11:00 12-lead ECG Rate 110 QTc 433 Sinus tachycardia with no acute ischemic changes Cardiac Echo Impressions Echocardiogram Report Interpretation Summary The patient was in sinus tachycardia with heart rates between 123-127 bpm during the exam. The left ventricle is normal in size. The ejection fraction is estimated to be 65-70%. The right ventricle is normal in size and function. There is mild mitral regurgitation. There is a moderate left-sided pleural effusion. No obvious valvular vegetation seen. However if clinical suspicion for endocarditis is high, consider SOPHIE. Reading Physician:AM Plan Impression Acute kidney injury, improving Improving hypernatremia Hypophosphatemia. Resolved anion gap metabolic acidosis Altered mental status Sepsis Aspiration pneumonia/acute maxillary sinusitis Polysubstance abuse History of hypertension, depression and anxiety disorder. Plan Agreed with the current IV fluid and electrolyte management. Renal service will sign off. Please do not hesitate to reconsult with any new issues. Thank you for allowing me to participate in the care of your patient. Maria Luisa Jauregui MD Jul 27, 2016 10:45 Sepsis Aspiration pneumonia Polysubstance abuse History of hypertension, depression and anxiety disorder. Maria Luisa Jauregui MD Jul 27, 2016 10:45
[2016-07-27] MEDS: Dextrose 5% 0.45% NaCl 1,000 ML IV SCH ×3 (11:12→20:37)
--- NOTE | 2016-07-27 11:24 | PROG NOTE ---
[address] [address] PROGRESS NOTE PATIENT: ALESSANDRA WOOTEN : 1960 MR#: [id number] ADMIT: 07/24/2016 JOB ID: [id number] DATE: 07/27/2016 PULMONARY CRITICAL CARE NOTE: PROBLEMS: 1. ARDS. 2. Bilateral pneumonia. 3. Septic shock. 4. Acute kidney injury. 5. Encephalopathy. 6. Multiple drug abuse including heroin, methamphetamine, gabapentin and alcohol. SUBJECTIVE: None. OBJECTIVE: Temperature 37.4. Pulse 86-102. Respiratory rate 22 with ventilator set at 15, blood pressure 137/94 to as high as 149/104. O2 sat on FiO2 of 40%, PEEP of 5, is 98%. I and O shows 4.3 liters and 4 liters out. General appearance: Abnormally responsive. Moving her lower extremities, but not her lower extremities, neck or face. Pupils about 2 mm. Hip is present. Nose and throat could not be examined. Chest: Fairly good breath sounds bilaterally. There are scattered coarse crackles throughout both lung rico, more at the bases. Peak inspiratory pressure 29 with a plateau of 19 on PEEP of 5, tidal volume of 400, respiratory rate of 15, FiO2 0.4. PEEP is set at 5, measured at 5. Heart: Rather regular rhythm. Heart tones seem normal. Monitor shows some ectopy both atrial and ventricular in origin. Abdomen is soft. Nondistended. Quiet. Tender in the left upper and lower quadrant. Extremities: No pretibial edema. Eyes: Sort of roving eye movements. LABORATORY DATA: Shows a white count of 14,400 which is rising with 85 polymorphonuclears, 5 lymphs, 7 monocytes. Hemoglobin stable at 10.1. Platelet count slowly falling at 123,000. Sodium 146, potassium 3.8, chloride 112, CO2 is 22. BUN 42, creatinine 1.24. Calcium 9.5 with an albumin of 2.5. Phosphorus 1.9, lower limits of normal being 2.5 mg/dL. Magnesium 1.6, which is at the lower limits of normal. Bilirubin normal at 1. AST mildly elevated at 165 but continuing to fall. ALT moderately elevated at 125, but continuing to fall. Alkaline phosphatase normal at 93. Albumin 2.5. Lipase 77 with upper limits of normal being 60 but down from a peak of 1274 on admission. Serology for hepatitis A, B, and C is negative. HIV negative. Urine for Legionella antigen negative. Chest x-ray pending. ASSESSMENT: 1. Polysubstance abuse. EEG shows marked slowing consistent with a drug effect. 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 Neurology believes that this is compatible with a positive outcome and, therefore, continue supportive care with a bit more hope. 2. Respiratory alkalemia. The patient overbreathing the ventilator. Maybe a central phenomenon. Will try changing the ventilator to pressure control mode and see if that might help solve our problem. In the meantime, will replete the potassium that is on the low side. 3. Multiple electrolyte abnormalities. Need to replete potassium, magnesium and phosphorus. 4. Hypernatremia. Minimal elevation of the sodium at about 146. Will continue the free water. 5. Abdominal discomfort. Lipase mildly elevated. Upper limits of normal being 60 with a level of 77. Has marked amount of stool in the colon, having evacuative efforts targeted both upper and lower portals. PLAN: 1. Change ventilator mode to pressure control. 2. Magnesium supplementation. 3. K-Phos supplementation. 4. Continue to administer free water as D5 half-normal saline. TIME SPENT: So far critical care is 42 minutes.
[2016-07-27] MEDS: fentaNYL 2,500 mCg/250 mL 2,500 MCG in IV Premix 1 EACH IV SCH (16:12)
--- NOTE | 2016-07-27 16:16 | NUR ---
Remains on vent support, no PS trials. No sedation X2days. Opening eyes, noted to respond to family with a "nod" to yes/no questions repeatedly. Moving legs intermittently and noted to move right arm today; have noted no movement of left arm and it appears flaccid. Low-grade temp continues. Sinus rhythm/tachycardia on tele, Esmolol at 25mcg. BP stable, a bit less hypertensive. Enema repeated, started on lactulose. Smear stool X1, increasing flatus noted, small amount of soft stool in rectum noted, no impaction found. SKin appears intact and without breakdown, no redness to sacrum/bottocks noted. Griffin draining dark yajaira urine, quantity sufficient. Supportive family at bedside.
[2016-07-27] MEDS ORDERED: PEG/Electrolytes 4,000 mL Solution TUBE PRN (17:25)
--- NOTE | 2016-07-27 17:49 | PCM.PNMED ---
Subjective Date of Service Jul 27, 2016 Subjective overnight: Patient remains unresponsive with fentanyl and esmolol drips titrated off overnight Today: Patient remains relatively unresponsive today on esmolol drip to control heart rate. Continue thiamine for possible Wernicke's associated with alcohol dependency as well as Keppra associated with alcohol withdrawal. Continue Zosyn antibiotics for possible sources of infection. EEG reading returned back abnormal however requires clinical correlation, no signs of seizure but diffuse cortical dysfunction. Gabapentin levels drawn several days ago returned high at 36. Patient continues to over breathe the vent, RT to adjust for pressure control and minimize pressure on the hopes that patient will not be able to ventilate as proficiently retaining more CO2 thereby improving alkalosis. Exam Vital Signs Vital Sign - Last Date Time Temp Pulse Resp B/P Pulse Ox O2 Delivery O2 Flow Rate FiO2 07/27/16 05:47 96 131/94 96 40 07/27/16 04:41 Supplement Oxygen Ventilator 07/27/16 04:41 36.8 22 07/24/16 12:30 4.00 Intake and Output 07/26/16 07/26/16 07/27/16 Cumulative From/Thru 15:00 23:00 07:00 07/24/16 09:02 - 07/27/16 04:46 Intake Total 2430 ml 1897 ml 67497 ml Output Total 2050 ml 1075 ml 04017 ml Balance 380 ml 822 ml 5745 ml Intake IV Total 2370 ml 1897 ml 08614 ml Tube Irrigant 60 ml 0 ml 60 ml Output Urine Total 1850 ml 1050 ml 94117 ml Gastric Drainage Total 200 ml 25 ml 225 ml # Bowel Movements 0 0 Exam Gen.: Mildly obese middle-aged female appearing older than stated age intubated Eyes: continued Pupillary athetosis with spasmodic rhythmic dilation and contraction of bilateral pupils and icteric sclera noninjected conjunctiva HENT: atraumatic, normocephalic, ET in place Mucus membranes dry, no central cyanosis noted Neck: supple, trachea midline, right IJ in place, No JVD noted Cardiac: tachycardic with regular rhythm and no murmur appreciated Lungs: Mild coarse sounding throughout worse in the bases left greater than right without significant expiratory wheezes abdomin: Patient grimaces with palpation possibly consistent with tenderness, non-distended, hypoactive bowel tones, soft : Griffin in place Extremities: Pulses intact at radial and dorsalis pedis bilaterally, soft restraints at wrists, No cyanosis, clubbing or edema Neurologic: Pupillary athetosis, general neurologic status could not be evaluated as patient is intubated Psychiatric: status could not be evaluated patient is sedated and intubated Lab and Diagnostics Result Diagram: 07/27/16 0537 07/26/16 1551 X-Rays, CTs and MRIs PROCEDURE: CT ABDOMEN AND PELVIS WITHOUT CONTRAST IMPRESSION: 1. Severe bilateral lower lobe pneumonia. 2. Distended distal small bowel loops, suggestive of gastroenteritis. 3. Thickening of the transverse, descending, and sigmoid colon, with differential considerations including ischemia, infection, and inflammation. 4. Fecal impaction within the rectum. 5. Proctitis. 6. Normal appendix. 7. Findings suggestive of pancreatitis; recommend correlation with laboratory testing. 8. Nonobstructing left nephrolith. 9. Moderately distended gallbladder. If there is clinical evidence for cholecystitis, ultrasound is recommended for further assessment. Dictated by: Ambreen Patel M.D. on 07/24/2016 at 11:04 PROCEDURE: CT BRAIN WITHOUT CONTRAST IMPRESSION: 1. No acute intracranial disease process. 2. Complete opacification of the right maxillary sinus which could be inflammatory or neoplastic. Dictated by: Sheyla Chinchilla MD, PhD on 07/24/2016 at 9:18 PROCEDURE: X-RAY CHEST ONE VIEW, PORTABLE IMPRESSION: Suspect bilateral lower lobe pneumonia. Dictated by: Ana Cristina Manjarrez M.D. on 07/24/2016 at 11:00 PROCEDURE: MRI BRAIN WITHOUT CONTRAST ([id number]) IMPRESSION: Severe right maxillary sinus disease otherwise unremarkable examination as above. Dictated by: Kendrick Moran M.D. on 07/26/2016 at 18:26 Approved by: Kendrick Moran M.D. on 07/26/2016 at 18:30 12-lead ECG Rate 110 QTc 433 Sinus tachycardia with no acute ischemic changes Cardiac Echo Impressions Echocardiogram Report Interpretation Summary The patient was in sinus tachycardia with heart rates between 123-127 bpm during the exam. The left ventricle is normal in size. The ejection fraction is estimated to be 65-70%. The right ventricle is normal in size and function. There is mild mitral regurgitation. There is a moderate left-sided pleural effusion. No obvious valvular vegetation seen. However if clinical suspicion for endocarditis is high, consider SOPHIE. Reading Physician:AM Additional Diagnostics EEG IMPRESSION: This EEG performed in the lethargic state is abnormal. The diffuse polymorphic slowing principally high amplitude delta and, at times, appearing triphasic-like, is suggestive of moderate cerebral cortical dysfunction/encephalopathy. This is nonspecific and may be seen in a wide variety of different clinical conditions, including toxic, metabolic, hypoxic, inflammatory, autoimmune, and infectious states. It may also be seen in the setting of sedative agents. There were no focal, lateralized, or epileptiform discharges noted. There were no seizures seen. If clinically indicated, I do recommend a repeat electroencephalogram if the patient is noted to become more alert or if there are any other new neurologic changes. Clinical correlation is advised. Ken Awan MD 07/26/162058 Assessment & Plan Patient is a 56 year old female with a history of HTN, anxiety and osteoarthritis with chronic narcotic use. She presented to [facility] on 07/24/16 via EMS with altered mental status. Found to have hyperkalemia, pneumonia and an significant kidney injury. Admitted for management of her numerous co- existing conditions to the ICU for what is likely to be a prolonged hospital admission. Hospital day 4 1. Severe sepsis, acute, present on admission. - Criteria met: tachycardia (105), fever (38.2), respiratory and possibly GI source, RADHA and encephalopathy and hypotension. - Fluid resuscitation given in the ED. Will continue NS 50 ml/hr as well as a bicarb drip at 100 ml/hr. - Norepinephrine to be used to maintain a MAP >65. - Treat the underlying infections as below. - Continue to monitor CBC, procalcitonin. - Limited echo ordered to evaluate left ventricular function in the setting of this critical illness shows intact ejection fraction - Notable bandemia improved days prior - Patient continues to have leukocytosis 2. Metabolic and toxic encephalopathy, acute, present on admission, under evaluation - Concern for toxic ingestion as patient has a history of heroin use, gabapentin misuse. Uncertain what else she might have consumed. - Urine tox in the ED positive for meth and heroin. - Gabapentin drawn several days ago returned high at 36, ethylene glycol and methanol levels pending. - Nephrology evaluating for possible dialysis. - IV fluids as above. - CSF PCR negative for infection - Continue sedation vacations in attempt to wake the patient however patient appears significantly older responsive - EEG suggestive of moderate cerebral cortical dysfunction/encephalopathy with recommendations to correlate clinically - MRI shows severe maxillary sinusitis without notable brain abnormalities - Keppra for possible seizure activity - Elevated ESR and CRP consistent with ongoing toxic inflammatory process 3. Primary Respiratory alkalosis, not present at admission, acute - Patient continues to overbreathing event with increased respiratory rate - welding technician to place patient on pressure control ventilation with decreased pressure support in hopes of increasing retained CO2 - Continue to monitor ABGs 4. Bilateral pneumonia, acute, present on admission. - Zosyn and azithromycin started in the ED. Will continue those at this time ( day 3 of antibiotics). - Viral PCR panel ordered all negative - Strep pneumo and legionella urine antigens ordered negative - Sputum culture ordered and pending. May need to ask respiratory therapy to suction a good sputum sample. - MRSA screening ordered negative - O2 supplementation to keep O2 saturations 92-96%. - DuoNeb available QID. Albuterol neb available Q2 PRN. 5. Acute kidney injury, present on admission. Improving - IV fluids initiated in the ED. Continue as above in #1. - Ethylene glycol and methanol levels are ordered and pending. - Dr. Jeff of nephrology has been consulted and we appreciate her input. - Significantly improved today - Continue to monitor BMP. 6. Pancreatitis, acute, present on admission. Improvement - BISAP score of 4 conferring >15% risk of mortality. UNALAKLEET-II score 19 with and 11-18% risk of mortality. - IV fluids as above. - Patient NPO. - Racquel score calculated 48 hours after admission is approximately 15% predicted mortality 6. Anion gap metabolic acidosis, acute, present on admission, improved - Secondary to sepsis, RADHA. - Continue IV fluids and correction of underlying problems. - ABG PRN for further monitoring. 7. Hyperkalemia, acute, present on admission. Resolved - Patient received insulin and glucose, albuterol, calcium gluconate, sodium bicarb in the ED with improvement on repeat BMP. - Improved - Will continue to monitor BMP and correct as needed. 8. Elevated transaminases, acute, present on admission. Improved - Uncertain etiology. Concern for hepatitis given patient's illicit drug use. - Hepatitis panel ordered and pending. - Continue to monitor CMP. 9. Rhabdomyolysis, acute, present on admission. Improved - CPK increasing with subsequent lab measurements. - Patient has essentially been in bed last 48-72 hours with fall on Sunday in the shower. - IV hydration ongoing as above. - Continue to monitor CPK level. 10. Hypertension, chronic, presume stable. - Patient has been hypotensive so will hold home medications. Home regimen includes clonidine 0.3 mg TID and triamterene-HCTZ 37.5/25 mg daily. 11. Depression with anxiety, chronic, presume stable. - Will hold home venlafaxine 75 mg daily at this time as patient is in CCU and NPO. 12. Chronic pain syndrome with opiate dependence, presume stable. - History of opiate habituation. Was being tapered down per office notes from Dr. Eli. - Will give no opiates during this admission if it can be avoided, especially while patient obtunded. - Due to kidney injury will also avoid NSAID's. - Could consider use of Tylenol but due to elevated transaminases would give less than 2 grams daily. 13. Alcohol use disorder, chronic, stable - Reported to ingest at least a bottle of wine daily. - While patient obtunded will give no scheduled benzodiazepines. - Monitor closely for signs of withdrawal and will initiate CIWA if needed. - Supplement Thiamine 14. Thyroid nodules, chronic, presume stable. - Recommend continued outpatient follow up. - Will not order TSH/T4 at this time as patient critically ill and this will likely return with low values for all. - Antiemetic available PRN. Disposition: Patient will likely be inpatient for the foreseeable future. Likely several days on the ventilator. PCP James Eli MD GI Prophylaxis: Proton Pump Inhibitor VTE Prophylaxis: Sub-Q Heparin (Unfractionated) VTE Mechanical Devices: Intermittant Pneumatic CD Resuscitation Status: CPR: Attempt Resuscitation Attending Statement The patient was seen and examined together with Dr. Amin on 07/27/2016 and I agree with the history, exam and plan as outlined in the note above. . Car Amin DO Jul 27, 2016 06:43 Al Del Rosario MD Jul 28, 2016 18:40
[2016-07-28] VITALS (9 sets, daily range): BP systolic 130–168; BP diastolic 75–98; PULSE 76–112; RESP 22–32; O2SAT 95–98
[2016-07-28] MEDS: Heparin 5,000 Unit/mL Inj SUBQ SCH ×3 (00:28→17:18)
[2016-07-28] MEDS: Piperacillin-Tazo 3.375 Gm Inj 3.375 GM in Dextrose 5% Minibag Plus 50 ML IV SCH ×3 (00:28→17:25)
[2016-07-28] MEDS: Lactulose 20 Gm/30 mL 30 mL Syrup PO SCH ×6 (00:28→20:30)
[2016-07-28] MEDS: Chlorhexidine 0.12% 15 mL Oral Solution MT SCH ×6 (00:28→20:30)
[2016-07-28] MEDS: Albuterol-Ipratropium 3 mL Inhalation Solution NEB SCH ×4 (02:41→20:30)
[2016-07-28] MEDS: Esmolol 2,500 mg/250 mL NS 2,500,000 MCG in IV Premix 1 EACH IV SCH ×3 (04:13→23:52)
[2016-07-28 04:49] LABS: BASOPHILS % (AUTO) 0.3 % (0-3); EOSINOPHILS % (AUTO) 0.2 % (0-5); MONOCYTES % (AUTO) 9.3 % (4-12); Mean Corpuscular Volume 92.7 fL (81-100); NEUTROPHILS % (AUTO) 82.6 % (40-74); Platelet Count 101 bil/L (150-400)
--- NOTE | 2016-07-28 05:02 | ABG ---
DateTimeAnalyzed 04:58:00 -_ pH ____7.511 - 7.350 7.450 pCO2 ___28.3__ -mmHg 35.0 45.0 pO2 106 -mmHg 69.0 116 HCO3- ___22.5__ -mmol/L 22.0 26.0 ABE ____0.4__ -mmol/L -2.0 2.0 tHb ____9.7__ -g/dL O2Hb ___96.3__ -% COHb ____1.1__ -% MetHb ____1.1__ -% sO2 ___98.5__ -% FIO2 ___40.0__ -% PEEP ____5.0__ -cmH2O Set_RR ___20.0__ -b/min Vt __400.0__ -L Drawn By RB - Date/Time Notified____ 05:01:00 -_ Spontaneous_RR ___15.0__ -b/min Oxygen Device 1 VENTILATOR - Notified By RB - Notified Whom CHANDRA R, RN - B 751 -mmHg tO2 ___13.4__ -Vol% Saw test _Positive -
[2016-07-28 05:24] LABS: Magnesium 1.9 mg/dL (1.6-2.6); Phosphorus 2.1 mg/dL (2.5-4.9)
[2016-07-28 05:25] LABS: ERYTHROCYTE SEDIMENTATION RATE 105 mm/hr (0-40)
[2016-07-28] MEDS ORDERED: KCl 40 mEq/100 mL Premix (K 3 - 3.7 & Creat < 2) IV ONE (05:50)
[2016-07-28] MEDS: Dextrose 5% 0.45% NaCl 1,000 ML IV SCH ×3 (06:03→18:16)
[2016-07-28] MEDS: Senna-Docusate 8.6-50 mg Tablet PO SCH (07:31)
[2016-07-28] MEDS: Azithromycin Inj 500 MG in Dextrose 5% w/Vial Mate 250 ML IV SCH (08:08)
[2016-07-28] MEDS: Pantoprazole 4 mg/mL 10 mL Inj IVPUSH SCH ×2 (08:08→17:18)
[2016-07-28] MEDS: Thiamine Inj 200 MG in Dextrose 5% 50 ML IV SCH (08:08)
[2016-07-28] MEDS ORDERED: Furosemide 10 mg/mL 2 mL Inj IVPUSH ONE ×2 (08:40→13:20)
--- NOTE | 2016-07-28 09:36 | DRSVH ---
PROCEDURE: X-RAY CHEST ONE VIEW, PORTABLE ([id number]) INDICATIONS: acute respiratory failure TECHNIQUE: One view of the chest was acquired. COMPARISON: [facility], CR, XR CHEST 1VW (PORTABLE), 07/27/2016, 2:38. FINDINGS: Surgical changes and devices: Stable-positioned ETT. Stable positioning of right IJ CVL and nasogast jj tube. Lungs and pleura: Persistent bibasilar airspace opacities, left greater than right. Small left pleur al effusion. Mediastinum: Mediastinal contours appear normal. Heart size is normal. Bones and chest wall: No suspicious bony lesions. Overlying soft tissues appear unremarkable. IMPRESSION: 1. Stable positioning of support lines and tubes. 2. Persistent bibasilar air space opacities in small effusion on the left. No definite effusion on t he right. Dictated by: [place] [facility] Interpreted: Sheyla Chinchilla MD on 07/28/2016 at 9:34 Transcribed by: LALITO on 07/28/2016 at 9:35 Approved by: Sheyla Chinchilla MD, PhD on 07/28/2016 at 17:05
--- NOTE | 2016-07-28 11:43 | PROG NOTE ---
[address] [address] PROGRESS NOTE PATIENT: ALESSANDRA WOOTEN : 1960 MR#: [id number] ADMIT: 07/24/2016 JOB ID: [id number] DATE: 07/28/2016 INFECTIOUS DISEASE FOLLOW UP NOTE: REASON FOR FOLLOW UP: Ventilator dependent respiratory failure, right maxillary sinusitis, bilateral presumed aspiration pneumonia, pancreatitis and alcoholic hepatitis. INTERVAL HISTORY: Overnight, the patient has improved. In general, she is now more awake and alert on the ventilator and there are attempts being made for a spontaneous breathing trial later today. The patient is awake enough to nod her head back and forth appropriately and voices no new complaints. Beyond that, we cannot obtain additional history from her, though we did discuss the case in great detail with the ICU team this morning. PHYSICAL EXAMINATION: Reveals a critically ill woman lying supine in the ICU. She is orally intubated. Temperature 37.4, and she has been afebrile now for 24 hours. Her last temperature spike to 38.3 at noon yesterday, now 37.4 temperature. Pulse 100 with some PVCs seen on the monitor but otherwise sinus rhythm. Blood pressure 137/86. She is saturating well on 40% FiO2 and 5 of PEEP. She is awake and follows some commands. Eyes without scleral icterus. Oral endotracheal tube, orogastric tube in good position. Central line appears benign. Lungs with crackles at the left base when she was auscultated posteriorly. Cardiac tones without new murmur but is mainly regular rhythm with an occasional ectopic. Abdomen soft and nontender without appreciable organomegaly or pancreatic mass. Griffin catheter is present. The back is benign appearing. There is no evidence of decubitus ulcers as we examined her buttocks and coccyx during rounds. No skin rash noted. LABORATORIES: Include white count 15.5, basically the same as yesterday with 85% segs. The bandemia of a few days ago has completely resolved. Her creatinine is 0.93, which is much, much improved. Recall she came in with a creatinine greater than 11 so she is down basically all the way to normal at this point. Her alcoholic hepatitis continues to improve. Her AST started at 284. It is down to 144 and there is a commensurate drop in the ALT. Bilirubin is normal. Alk phos is normal. Albumin 2.4. Procalcitonin was as high as 3.3 when she came in. It is now down to 0.7. Serologic studies include negative HIV, negative hep C. Micro: All negative including negative respiratory viral panel, negative spinal fluid panel, negative blood cultures, negative MRSA and sputum grew just normal shakir. IMAGING: Includes a chest x-ray done this morning which shows persistent bibasilar infiltrates with small effusion on the left. IMPRESSION: This is a complex case of a woman admitted with respiratory failure who has a history of polysubstance abuse. She has evidence of alcoholic hepatitis, pancreatitis, bilateral aspiration pneumonia with elevated procalcitonin and maxillary sinusitis. All these problems appear to be improving steadily and with respect to infection specifically we see an improving fever curve, declining procalcitonin and overall improvement with her ventilatory status. The only concern here is her modestly elevated white count, but the bandemia seen previously has at least resolved and she does not appear to have any secondary or additional sources of infection. RECOMMENDATIONS: 1. Will continue azithromycin through tomorrow morning and that stop order has been entered. 2. I would continue Zosyn through the weekend but if the patient is still doing this well on Sunday, the , will go ahead and stop the Zosyn at that time as well. This case discussed in detail on rounds.
--- NOTE | 2016-07-28 12:38 | PROG NOTE ---
[address] [address] PROGRESS NOTE PATIENT: ALESSANDRA WOOTEN : 1960 MR#: [id number] ADMIT: 07/24/2016 JOB ID: [id number] DATE: 07/28/2016 PULMONARY CRITICAL CARE PROGRESS NOTE: The patient is a 56-year-old woman with a history of methamphetamine, heroin, and alcohol use admitted with polysubstance overdose and respiratory failure. The patient was seen and evaluated with resident physician, Dr. Diego Sanchez. Please refer to the separate detailed note for additional information. INTERVAL HISTORY: Her mental status has continued to slowly improve, and today she is alert on the ventilator, following commands. She is on no sedation and tolerated about 30 minutes of a spontaneous breathing trial before she became tachypneic and her tidal volumes dropped. REVIEW OF SYSTEMS: Unable to obtain. PHYSICAL EXAMINATION: Vital signs reviewed. T-max of 37.5. She is intubated but not sedated. Eyes open, following commands and nodding in response to questions. Chest: She has some rhonchi that appear to be upper airway sounds primarily. Abdomen is soft, nontender. Intake and output: She is about 8 L up since hospitalization. LABORATORIES: Reviewed. WBC is going up steadily to 15.5 today from 6.9 a few days ago. Chemistry reviewed. Procalcitonin is down to 0.7 from 3.3 a few days ago. Cultures negative blood, respiratory, viral PCR cultures. Arterial blood gas from this morning shows pH of 7.51, pCO2 of 28, pO2 of 106, and bicarb of 22. ASSESSMENT AND RECOMMENDATIONS: 1. Acute hypoxic respiratory failure, on mechanical ventilation since July 24. 2. Acute encephalopathy - improving. 3. Polysubstance overdose, including methamphetamine, heroin, alcohol and gabapentin. 4. Acute kidney injury - improved. 5. Hypernatremia - improved. 6. Aspiration pneumonia. 7. Rhabdomyolysis - improved. This 56-year-old woman was brought into the hospital after being found down and intubated for airway protection. She has been quite encephalopathic for the last few days, and her neurologic status is slowly improved. She is now alert, following commands. On a pressure support trial this morning, she did reasonably well, but after about 30-40 minute she became tachypneic and her tidal volumes have dropped. I would like to diurese her with some IV Lasix and reassess this afternoon to see if she is ready for extubation. From an antibiotic standpoint, she has been on Zosyn for aspiration, and her procalcitonin is going down, although white count is going up. We should keep a close eye on this and see if she starts having any diarrhea or anything to suggest a secondary infection. Chest x-ray shows retrocardiac atelectasis and some right-sided infiltrates as well similar to previous. She is on appropriate deep venous thrombosis and gastrointestinal prophylaxis. She is a FULL CODE. She has not had any tube feeding yet, and I think if she is extubated today, we will not do that, but if she is not extubated today, then we should start tube feeding. Physical Therapy is going to work with her as well. TIME: Critical care time is 45 minutes. MTDD
--- NOTE | 2016-07-28 13:36 | NUR ---
NUTRITION FOLLOW-UP: Assess: 56 YO F admitted to CCU with ARDS, bilateral aspiration pneumonia, septic shock, acute kidney injury, hyperkalemia, encephalopathy, multiple drug abuse, including heroin, methadone, gabapentin, and alcohol. Patient remains intubated, with improving mentation. She tolerated a short PST this morning, but after about 30-40 minute she became tachypneic, and her tidal volumes dropped. Plan is to diurese her with IV Lasix and reassess later today for potential extubation. Per discussion during CCU rounds, pt. will continue to receive lactulose today, after beginning to stool yesterday. In the event she is unable to be extubated today, plan is to begin enteral feeding. Signed orders in chart. Per notes, pt has had no food or drink since Sunday (07/21). Unsigned enteral orders in chart for MD authorization. PMHX: HTN, depression, anxiety, chronic pain, degenerative disc disease. DIET: NPO. LABS: Na 145, K+ 3.3, chloride 111, BUN 30, Glu 118, Phos 2.1, AST 144, ALT 103, Alb 2.4. MEDICATIONS: Reviewed. Lactulose, esmolol, thiamine. GI: BM x 4 today. SKIN: No issues noted. ANTHROPOMETRICS: Wt: 81.0 kg, BMI 28.0 kg/m2, Admit wt: 82.1 kg. ESTIMATED NEEDS: VENT/RADHA Calories: 0462-9639 kcal/day (20-25 kcal/kg BW) Protein: 99-123 g/day (1.2-1.5 g/kg BW) NUTRITION DIAGNOSIS: 1) Inadequate oral intake related to decreased ability to consume sufficient energy as evidenced by NPO/VENT status - PERSISTS. INTERVENTION: 1) Signed enteral feeding orders in chart, as follows. Initiate Vital 1.5 at trophic rate 10 ml/hr x 24 hr. Once tolerance established, recommend advance 5 ml every 4 hr. to goal rate 55 ml/hr. In addition, recommend three packets ProSource per day. Enteral feeding to include ProSource will provide 1815 kcal, 115 g protein, sufficient to meet 100% nutrient needs. MONITOR/EVALUATE: NPO / vent status, orders for nutrition support, labs, GI, POC, nutrition status. Follow per high nutrition risk guidelines.
--- NOTE | 2016-07-28 14:20 | PCM.PNMED ---
Subjective Date of Service Jul 28, 2016 Subjective 56 year old female with PMH of HTN, Anxiety, chronic narcotic use admitted for severe sepsis, pneumonia, encephalopathy and RADHA. Currently being treated for ventilator dependant respiratory failure, aspiration pneumonia, severe sinusitis , pancreatitis and hepatitis. Overnight: The patient has improved considerably. She is able to respond to voice and follow commands, is able to move all extremities on command. She can respond to questions now by nodding or shaking her head. Exam Vital Signs Vital Sign - Last Date Time Temp Pulse Resp B/P Pulse Ox O2 Delivery O2 Flow Rate FiO2 07/28/16 08:39 104 25 137/86 97 40 07/28/16 08:00 37.4 Mechanical Ventilator 07/24/16 12:30 4.00 Intake and Output 07/27/16 07/27/16 07/28/16 Cumulative From/Thru 15:00 23:00 07:00 07/24/16 09:02 - 07/28/16 06:25 Intake Total 2552 ml 1590 ml 38839 ml Output Total 1000 ml 1100 ml 26039 ml Balance 1552 ml 490 ml 7787 ml Intake Oral 180 ml 180 ml IV Total 2372 ml 1590 ml 40347 ml Tube Irrigant 60 ml Output Urine Total 1000 ml 1050 ml 01790 ml Gastric Drainage Total 0 ml 50 ml 275 ml # Bowel Movements 4 4 Exam General: Patient awake and alert laying in hospital bed in 4 point restraints with ET tube in placed. At time of interview patient undergoing SBT. HEENT: Normocephalic, atraumatic. External ears without defect. Pupils equal, round, and reactive to light and accommodation. Neck:No jugular venous distension. Cardiovascular: Regular rate and rhythm with no murmurs Pulmonary: Bilateral inspiratory and expiratory wheezes. Abdomen: Soft, machine tender to palpation on her LLQ. Extremities: No clubbing, cyanosis, edema, or lymphadenopathy appreciated. Skin: Warm to palpation. No rash, ulcers, or subcutaneous nodules appreciated. Neurological: Cranial nerves grossly intact. Psychiatric: Awake and alert, communicates with head shakes and nods IVs and Medications Medications Reviewed: Medications were reviewed in detail Lab and Diagnostics Result Diagram: 07/28/160 07/28/16 0440 X-Rays, CTs and MRIs PROCEDURE: CT ABDOMEN AND PELVIS WITHOUT CONTRAST IMPRESSION: 1. Severe bilateral lower lobe pneumonia. 2. Distended distal small bowel loops, suggestive of gastroenteritis. 3. Thickening of the transverse, descending, and sigmoid colon, with differential considerations including ischemia, infection, and inflammation. 4. Fecal impaction within the rectum. 5. Proctitis. 6. Normal appendix. 7. Findings suggestive of pancreatitis; recommend correlation with laboratory testing. 8. Nonobstructing left nephrolith. 9. Moderately distended gallbladder. If there is clinical evidence for cholecystitis, ultrasound is recommended for further assessment. Dictated by: Ambreen Patel M.D. on 07/24/2016 at 11:04 PROCEDURE: CT BRAIN WITHOUT CONTRAST IMPRESSION: 1. No acute intracranial disease process. 2. Complete opacification of the right maxillary sinus which could be inflammatory or neoplastic. Dictated by: Sheyla Chinchilla MD, PhD on 07/24/2016 at 9:18 PROCEDURE: X-RAY CHEST ONE VIEW, PORTABLE IMPRESSION: Suspect bilateral lower lobe pneumonia. Dictated by: Ana Cristina Manjarrez M.D. on 07/24/2016 at 11:00 PROCEDURE: MRI BRAIN WITHOUT CONTRAST ([id number]) IMPRESSION: Severe right maxillary sinus disease otherwise unremarkable examination as above. Dictated by: Kendrick Moran M.D. on 07/26/2016 at 18:26 Approved by: Kendrick Moran M.D. on 07/26/2016 at 18:30 X-RAY CHEST ONE VIEW, PORTABLE IMPRESSION: 1. Stable positioning of support lines and tubes. 2. Persistent bibasilar air space opacities in small effusion on the left. No definite effusion on the right. Dictated by: Tex Jean RRA Interpreted: Sheyla Chinchilla MD on 07/28/2016 at 9:34 12-lead ECG Rate 110 QTc 433 Sinus tachycardia with no acute ischemic changes Cardiac Echo Impressions Echocardiogram Report Interpretation Summary The patient was in sinus tachycardia with heart rates between 123-127 bpm during the exam. The left ventricle is normal in size. The ejection fraction is estimated to be 65-70%. The right ventricle is normal in size and function. There is mild mitral regurgitation. There is a moderate left-sided pleural effusion. No obvious valvular vegetation seen. However if clinical suspicion for endocarditis is high, consider SOPHIE. Reading Physician:AM Additional Diagnostics EEG IMPRESSION: This EEG performed in the lethargic state is abnormal. The diffuse polymorphic slowing principally high amplitude delta and, at times, appearing triphasic-like, is suggestive of moderate cerebral cortical dysfunction/encephalopathy. This is nonspecific and may be seen in a wide variety of different clinical conditions, including toxic, metabolic, hypoxic, inflammatory, autoimmune, and infectious states. It may also be seen in the setting of sedative agents. There were no focal, lateralized, or epileptiform discharges noted. There were no seizures seen. If clinically indicated, I do recommend a repeat electroencephalogram if the patient is noted to become more alert or if there are any other new neurologic changes. Clinical correlation is advised. Ken Awan MD 07/26/162058 Assessment & Plan 56 year old F with PMH of HTN, anxiety and chronic narcotic use. She presented to [facility] on 07/24/16 via EMS with altered mental status. Found to have hyperkalemia, pneumonia and an significant kidney injury. Admitted for management of her numerous co-existing conditions to the ICU. Hospital day 5. ventilator day 4. 1. Severe sepsis, acute, present on admission. Improving - Criteria met: tachycardia (105), fever (38.2), respiratory and possibly GI source, RADHA and encephalopathy and hypotension. - Pt is still tachycardic, with increased temperatures. - Pt off blood pressure support - Treat the underlying infections as below. - Continue to monitor CBC, procalcitonin. - ECHO showed no obvious vegetations - Continued leukocytosis 2. Metabolic and toxic encephalopathy, acute, present on admission, improving - Concern for toxic ingestion as patient has a history of heroin use, gabapentin misuse. Uncertain what else she might have consumed. - Urine tox in the ED positive for meth and heroin. - Gabapentin drawn several days ago returned high at 36, ethylene glycol and methanol levels negative. - IV fluids 150ml/hr - CSF PCR negative for infection - EEG suggestive of moderate cerebral cortical dysfunction/encephalopathy with recommendations to correlate clinically - MRI shows severe maxillary sinusitis without notable brain abnormalities - Keppra for possible seizure activity - Elevated ESR and CRP consistent with ongoing toxic inflammatory process - Pt tolerated sedation vacation and SBT very well today. - Plan is to extubate 3. Primary Respiratory alkalosis, not present at admission, acute - Patient was overbreathing event with increased respiratory rate - Controlled with sedation - Sedation vacation and SBT tolerated well, plan to extubate Pt later today 4. Bilateral pneumonia, acute, present on admission. High suspicion for aspiration - ID following Pt - All appropriate cultures and serologies are negative to date - DuoNeb available QID. Albuterol neb available Q2 PRN. - Azithromycin will be stopped tomorrow 07/29/2016. - Zosyn will be stopped 5. Acute kidney injury, present on admission. Improving - Creatinine has normalized - IV fluids at 150/hr. - Nephrology has signed off - Continue to monitor BMP 6. Pancreatitis, acute, present on admission. Improvement - BISAP score of 4 conferring >15% risk of mortality. [place]-II score 19 with and 11-18% risk of mortality. - IV fluids as above. - Oberlin score calculated 48 hours after admission is approximately 15% predicted mortality - Lipase 77 07/27/2016 8. Elevated transaminases, acute, present on admission. Improved - Uncertain etiology. Concern for hepatitis given patient's illicit drug use. - Hepatitis panel, HIV panel negative - Continue to monitor CMP. 9. Rhabdomyolysis, acute, present on admission. Improved - CPK showing downward trend - IV hydration ongoing as above. - Continue to monitor CPK level. 10. Hypertension, chronic, presume stable. - Home medications held. Home regimen includes clonidine 0.3 mg TID and triamterene-HCTZ 37.5/25 mg daily. - Clonidine bottle was empty, unknown how many tablets of this medication she had taken prior to admission. GI Prophylaxis: Proton Pump Inhibitor VTE Prophylaxis: Sub-Q Heparin (Unfractionated) VTE Mechanical Devices: Intermittant Pneumatic CD Resuscitation Status: CPR: Attempt Resuscitation Attending Statement I have seen and examined this patient with the resident physician. Vital signs , labs, imaging have been reviewed. I agree with the assessment and plan above. Please refer to my separately dictated progress note for any modifications to above. Yanira Aden M.D. Pulmonary and Critical Care medicine Pager [phone] MAVERICK CONRAD DO Jul 28, 2016 09:41 Yanira Aden MD Jul 28, 2016 16:05
[2016-07-28] MEDS ORDERED: KCl 40 mEq/100 mL (CENTRAL) 40 MEQ in IV Premix 1 EACH IV ONE (17:10)
[2016-07-28] MEDS: fentaNYL 2,500 mCg/250 mL 2,500 MCG in IV Premix 1 EACH IV SCH (17:12)
[2016-07-28] MEDS ORDERED: Potassium Phos (mEq) Inj 40 MEQ in Dextrose 5% 500 ML IV ONE (17:20)
--- NOTE | 2016-07-28 17:38 | PCM.PNMED ---
Subjective Date of Service Jul 28, 2016 Subjective Overnight: The patient has been off sedation for 2 days and is following commands per family and nursing staff. She remained in sinus tachycardia on and a esmolol drip. No acute events otherwise noted today: Patient was alert and cooperative this morning however failed her initial pressure support trial on the ventilation. She subsequently did very well on the 1 PM pressure support trial at 5 over 5 for 40 minutes. The ICU team made plans for the patient be extubated. Extubation without issue. The patient will be seen by speech therapy for swallowing evaluation prior to clearing for diet. Exam Vital Signs Vital Sign - Last Date Time Temp Pulse Resp B/P Pulse Ox O2 Delivery O2 Flow Rate FiO2 07/28/16 04:30 Ventilator 07/28/16 04:30 37.5 88 22 148/87 95 40 07/24/16 12:30 4.00 Intake and Output 07/27/16 07/27/16 07/28/16 Cumulative From/Thru 15:00 23:00 07:00 07/24/16 09:02 - 07/28/16 06:25 Intake Total 2552 ml 1590 ml 76733 ml Output Total 1000 ml 1100 ml 09193 ml Balance 1552 ml 490 ml 7787 ml Intake Oral 180 ml 180 ml IV Total 2372 ml 1590 ml 95114 ml Tube Irrigant 60 ml Output Urine Total 1000 ml 1050 ml 78360 ml Gastric Drainage Total 0 ml 50 ml 275 ml # Bowel Movements 4 4 Exam Physical exam performed prior to extubation Gen.: Mildly obese middle-aged female appearing older than stated age intubated Eyes: anisocoria with right pupil larger than left, and icteric sclera noninjected conjunctiva HENT: atraumatic, normocephalic, ET in place Mucus membranes dry, no central cyanosis noted Neck: supple, trachea midline, right IJ in place, No JVD noted Cardiac: tachycardic with regular rhythm and no murmur appreciated Lungs: Mild coarse sounding in the bases bilaterally left greater than right without significant expiratory wheezes abdomen: Patient grimaces with palpation possibly consistent with tenderness, non-distended, hypoactive bowel tones, soft : Griffin in place Extremities: Pulses intact at radial and dorsalis pedis bilaterally, soft restraints at wrists, No cyanosis, clubbing or edema Neurologic: Anisocoria described above, patient follows commands able to move hands and feet all intubated Psychiatric: status could not be evaluated as patient is intubated Lab and Diagnostics Result Diagram: 07/28/16 0440 07/28/16 0440 X-Rays, CTs and MRIs PROCEDURE: CT ABDOMEN AND PELVIS WITHOUT CONTRAST IMPRESSION: 1. Severe bilateral lower lobe pneumonia. 2. Distended distal small bowel loops, suggestive of gastroenteritis. 3. Thickening of the transverse, descending, and sigmoid colon, with differential considerations including ischemia, infection, and inflammation. 4. Fecal impaction within the rectum. 5. Proctitis. 6. Normal appendix. 7. Findings suggestive of pancreatitis; recommend correlation with laboratory testing. 8. Nonobstructing left nephrolith. 9. Moderately distended gallbladder. If there is clinical evidence for cholecystitis, ultrasound is recommended for further assessment. Dictated by: Ambreen Patel M.D. on 07/24/2016 at 11:04 PROCEDURE: CT BRAIN WITHOUT CONTRAST IMPRESSION: 1. No acute intracranial disease process. 2. Complete opacification of the right maxillary sinus which could be inflammatory or neoplastic. Dictated by: Sheyla Chinchilla MD, PhD on 07/24/2016 at 9:18 PROCEDURE: X-RAY CHEST ONE VIEW, PORTABLE IMPRESSION: Suspect bilateral lower lobe pneumonia. Dictated by: Ana Cristina Manjarrez M.D. on 07/24/2016 at 11:00 PROCEDURE: MRI BRAIN WITHOUT CONTRAST ([id number]) IMPRESSION: Severe right maxillary sinus disease otherwise unremarkable examination as above. Dictated by: Kendrick Moran M.D. on 07/26/2016 at 18:26 Approved by: Kendrick Moran M.D. on 07/26/2016 at 18:30 12-lead ECG Rate 110 QTc 433 Sinus tachycardia with no acute ischemic changes Cardiac Echo Impressions Echocardiogram Report Interpretation Summary The patient was in sinus tachycardia with heart rates between 123-127 bpm during the exam. The left ventricle is normal in size. The ejection fraction is estimated to be 65-70%. The right ventricle is normal in size and function. There is mild mitral regurgitation. There is a moderate left-sided pleural effusion. No obvious valvular vegetation seen. However if clinical suspicion for endocarditis is high, consider SOPHIE. Reading Physician:AM Additional Diagnostics EEG IMPRESSION: This EEG performed in the lethargic state is abnormal. The diffuse polymorphic slowing principally high amplitude delta and, at times, appearing triphasic-like, is suggestive of moderate cerebral cortical dysfunction/encephalopathy. This is nonspecific and may be seen in a wide variety of different clinical conditions, including toxic, metabolic, hypoxic, inflammatory, autoimmune, and infectious states. It may also be seen in the setting of sedative agents. There were no focal, lateralized, or epileptiform discharges noted. There were no seizures seen. If clinically indicated, I do recommend a repeat electroencephalogram if the patient is noted to become more alert or if there are any other new neurologic changes. Clinical correlation is advised. Ken Awan MD 07/26/162058 Assessment & Plan Patient is a 56 year old female with a history of HTN, anxiety and osteoarthritis with chronic narcotic use. She presented to [facility] on 07/24/16 via EMS with altered mental status. Found to have hyperkalemia, pneumonia and an significant kidney injury. Admitted for management of her numerous co- existing conditions to the ICU for what is likely to be a prolonged hospital admission. Hospital day 5 1. Severe sepsis, acute, present on admission, resolved - Criteria met at admission: tachycardia (105), fever (38.2), respiratory and possibly GI source, RADHA and encephalopathy and hypotension. - Fluid resuscitation given in the ED. Will continue NS 50 ml/hr as well as a bicarb drip at 100 ml/hr. - Norepinephrine to be used to maintain a MAP >65. - Treat the underlying infections as below. - Continue to monitor CBC, procalcitonin. - Limited echo ordered to evaluate left ventricular function in the setting of this critical illness shows intact ejection fraction - Notable bandemia improved days prior - Patient continues to have leukocytosis 2. Metabolic and toxic encephalopathy, acute, present on admission, under evaluation - Concern for toxic ingestion as patient has a history of heroin use, gabapentin misuse. - Urine tox in the ED positive for meth and heroin. - Gabapentin drawn several days ago returned high at 36, ethylene glycol and methanol levels negative. - CSF PCR negative for infection - EEG suggestive of moderate cerebral cortical dysfunction/encephalopathy with recommendations to correlate clinically - MRI shows severe maxillary sinusitis without notable brain abnormalities - discontinue Keppra for possible seizure activity - Elevated ESR and CRP consistent with ongoing toxic inflammatory process - patient will follow commands today and will reevaluate as patient's health improves 3. Primary Respiratory alkalosis, not present at admission, acute - Patient continues to overbreathing event with increased respiratory rate - anesthesiology technologist to place patient on pressure control ventilation with decreased pressure support in hopes of increasing retained CO2 - Extubated on 07/28/2016, particularly following patient to be placed on BiPAP mask per pulmonology recommendations - Continue to monitor ABGs 4. Bilateral pneumonia, acute, present on admission, - Zosyn and azithromycin started in the ED. Will continue those at this time ( day 5 of antibiotics). - Viral PCR panel ordered all negative - Strep pneumo and legionella urine antigens ordered negative - Sputum culture ordered and pending. - MRSA screening ordered negative - O2 supplementation to keep O2 saturations 92-96%. - DuoNeb available QID. Albuterol neb available Q2 PRN. - placed on BiPAP mask postextubation per pulmonology recommendations 5. Acute kidney injury, present on admission. resolved - IV fluids initiated in the ED. Continue as above in #1. - Ethylene glycol and methanol levels are ordered and pending. - Dr. Jeff of nephrology has been consulted and we appreciate her input. - Significantly improved - Continue to monitor BMP. 6. Pancreatitis, acute, present on admission. improved - BISAP score of 4 conferring >15% risk of mortality. RED DEVIL-II score 19 with and 11-18% risk of mortality. - IV fluids as above. - Patient NPO. - Racquel score calculated 48 hours after admission is approximately 15% predicted mortality 6. Anion gap metabolic acidosis, acute, present on admission, improved - Secondary to sepsis, ARDHA. - Continue IV fluids and correction of underlying problems. - ABG PRN for further monitoring. 7. Hyperkalemia, acute, present on admission. Resolved - Patient received insulin and glucose, albuterol, calcium gluconate, sodium bicarb in the ED with improvement on repeat BMP. - Improved - Will continue to monitor BMP and correct as needed. 8. Elevated transaminases, acute, present on admission. Improved - Uncertain etiology. Concern for hepatitis given patient's illicit drug use. - Hepatitis panel ordered and pending. - Continue to monitor CMP. 9. Rhabdomyolysis, acute, present on admission. Improved - CPK increasing with subsequent lab measurements. - Patient has essentially been in bed last 48-72 hours with fall on Sunday in the shower. - IV hydration ongoing as above. - Continue to monitor CPK level. 10. Hypertension, chronic, presume stable. - Patient has been hypotensive so will hold home medications. Home regimen includes clonidine 0.3 mg TID and triamterene-HCTZ 37.5/25 mg daily. 11. Depression with anxiety, chronic, presume stable. - Will hold home venlafaxine 75 mg daily at this time as patient is in CCU and NPO. 12. Chronic pain syndrome with opiate dependence, presume stable. - History of opiate habituation. Was being tapered down per office notes from Dr. Eli. - Will give no opiates during this admission if it can be avoided, especially while patient obtunded. - Due to kidney injury will also avoid NSAID's. - Could consider use of Tylenol but due to elevated transaminases would give less than 2 grams daily. 13. Alcohol use disorder, chronic, stable - Reported to ingest at least a bottle of wine daily. - While patient obtunded will give no scheduled benzodiazepines. - Monitor closely for signs of withdrawal and will initiate CIWA if needed. - Supplement Thiamine 14. Thyroid nodules, chronic, presume stable. - Recommend continued outpatient follow up. - Will not order TSH/T4 at this time as patient critically ill and this will likely return with low values for all. - Antiemetic available PRN. Disposition: Patient will likely be inpatient for several days. No current barriers to discharge expected. PCP James Eli MD Pain Evaluation: Adequate Pain Control GI Prophylaxis: Proton Pump Inhibitor VTE Prophylaxis: Sub-Q Heparin (Unfractionated) VTE Mechanical Devices: Intermittant Pneumatic CD Resuscitation Status: CPR: Attempt Resuscitation Attending Statement The patient was seen and examined together with Dr. Amin on 07/28/2016 and I agree with the history, exam and plan as outlined in the note above. . Car Amin DO Jul 28, 2016 06:39 Al Del Rosario MD Jul 30, 2016 17:47
--- NOTE | 2016-07-28 18:27 | NUR ---
Respiratory/extubation/mentation/BM Pt on PST x2 with good results (see RT/MD note). Extubated at 1610 to 2L NC. RR 20s-30s, O2 at 96%. Pt A&O x3, weak [employer] insights in both hands, more in right. Able to help turn and move with min assist in bed. Had x3 loose, brown BMs throughout shift. Gave 40mg of lasix total throughout shift with 3400ml output. Family at bedside during most of shift. Frequent repositioning, oral care, and rounding continues.
[2016-07-29] VITALS (11 sets, daily range): BP systolic 118–155; BP diastolic 63–88; PULSE 72–111; RESP 18–28; O2SAT 90–99
[2016-07-29] MEDS: Lactulose 20 Gm/30 mL 30 mL Syrup PO SCH ×4 (00:30→12:50)
[2016-07-29] MEDS: Piperacillin-Tazo 3.375 Gm Inj 3.375 GM in Dextrose 5% Minibag Plus 50 ML IV SCH ×3 (00:30→17:21)
[2016-07-29] MEDS: Heparin 5,000 Unit/mL Inj SUBQ SCH ×4 (00:30→22:01)
[2016-07-29] MEDS: Albuterol-Ipratropium 3 mL Inhalation Solution NEB SCH ×4 (02:30→20:58)
[2016-07-29 05:08] LABS: BASOPHILS % (AUTO) 0.5 % (0-3); EOSINOPHILS % (AUTO) 1.2 % (0-5); MONOCYTES % (AUTO) 6.8 % (4-12); Mean Corpuscular Volume 93.2 fL (81-100); NEUTROPHILS % (AUTO) 82.2 % (40-74); Platelet Count 105 bil/L (150-400)
[2016-07-29] MEDS: Dextrose 5% 0.45% NaCl 1,000 ML IV SCH ×4 (05:15→22:01)
--- NOTE | 2016-07-29 05:31 | ABG ---
DateTimeAnalyzed 05:28:00 -_ pH ____7.566 - 7.350 7.450 pCO2 ___24.4__ -mmHg 35.0 45.0 pO2 ___54.6__ -mmHg 69.0 116 HCO3- ___22.2__ -mmol/L 22.0 26.0 ABE ____1.1__ -mmol/L -2.0 2.0 tHb ___10.4__ -g/dL O2Hb ___90.5__ -% COHb ____1.5__ -% MetHb ____1.0__ -% sO2 ___92.8__ -% FIO2 ___25.0__ -% Drawn By MK - Date/Time Notified____ 05:30:00 -_ Liter_Flow ____1.0__ -L/min Oxygen Device 1 __CANNULA - Notified By MK - Notified Whom Dr fuiano - B 758 -mmHg tO2 ___13.3__ -Vol% Saw test _Positive -
[2016-07-29 05:52] LABS: Magnesium 1.4 mg/dL (1.6-2.6)
[2016-07-29] MEDS ORDERED: KCl 40 mEq/100 mL Premix (K 3 - 3.7 & Creat < 2) IV ONE ×2 (06:30→23:35)
[2016-07-29] MEDS ORDERED: Mag Sulf 4 Gm/100 mL IV Premix (Mag < 1.6 & Creat < 2) IV ONE (06:30)
[2016-07-29] MEDS: Senna-Docusate 8.6-50 mg Tablet PO SCH (07:51)
[2016-07-29] MEDS: Esmolol 2,500 mg/250 mL NS 2,500,000 MCG in IV Premix 1 EACH IV SCH (07:51)
[2016-07-29] MEDS: Pantoprazole 4 mg/mL 10 mL Inj IVPUSH SCH ×2 (07:51→17:20)
[2016-07-29] MEDS: Thiamine Inj 200 MG in Dextrose 5% 50 ML IV SCH (07:52)
[2016-07-29] MEDS ORDERED: Magnesium Sulf 2 Gm/50mL Water 2 GM in IV Premix 1 EACH IV ONE (08:00)
[2016-07-29] MEDS ORDERED: Potassium Phos (mEq) Inj 40 MEQ in Dextrose 5% 500 ML IV ONE (08:00)
[2016-07-29] MEDS ORDERED: Azithromycin Inj 500 MG in Dextrose 5% w/Vial Mate 250 ML IV SCH ×4 (08:30)
--- NOTE | 2016-07-29 11:35 | NUR ---
Evaluation completed. Please go to "Notes" then click on "Assessments and Notes" (bottom left corner of screen). Then select appropriate discipline tab on top of screen.
--- NOTE | 2016-07-29 11:51 | PROG NOTE ---
[address] [address] PROGRESS NOTE PATIENT: ALESSANDRA WOOTEN : 1960 MR#: [id number] ADMIT: 07/24/2016 JOB ID: [id number] DATE: 07/29/2016 PULMONARY PROGRESS NOTE: The patient is a 56-year-old woman with history of methamphetamine, heroin and alcohol use admitted with polysubstance overdose and respiratory failure. INTERVAL HISTORY: She was extubated yesterday afternoon and has been doing reasonably well from a respiratory standpoint on 1 L nasal cannula. She has intermittent episodes of tachypnea that seem to be centrally mediated resulting in respiratory alkalosis but without any desaturation or hypoxemia. She is having diarrhea but she is also getting lactulose. REVIEW OF SYSTEMS: Denies any chest pain, abdominal pain. PHYSICAL EXAMINATION: Vital signs reviewed. Temperature 36.8, pulse 80, respirations 24, BP 155/80, sats 97% on 1 L nasal cannula. General: Alert, sitting up in bed, trying to work with physical therapy. Chest is clear to auscultation. LABORATORIES: Reviewed. WBC is climbing over the last four days and is up to 20,000 today. Other labs reviewed and within acceptable limits. Procalcitonin is down to 0.7. Cultures: No new data. ASSESSMENT AND RECOMMENDATIONS: 1. Acute respiratory failure-intubated from July 24 until July 28. 2. Acute encephalopathy-improved. 3. Polysubstance overdose including methamphetamine, heroin, alcohol and gabapentin. 4. Acute kidney injury-resolved. 5. Leukocytosis-rising. 6. Aspiration pneumonia-improved. A 56-year-old woman was brought in on July 24 after being found down and intubated for airway protection. She has been encephalopathic and improved enough to be extubated yesterday. She has been doing reasonably well from a respiratory standpoint and her chest x-ray today shows significant improvement in infiltrates previously seen from aspiration pneumonia. Of concern is her rising white count which is up to 20 today and has been steadily going up for the last four days. She has no symptoms to suggest an infectious process. She is on Zosyn for aspiration pneumonia. I recommend checking a C. difficile toxin on stool and also getting blood cultures from her central line and from periphery. Her line has been in for about five days now. Nothing else to add really from a pulmonary standpoint. As before, I would recommend continuing diuresis with IV Lasix if we think she has room based on blood pressure and creatinine. I am available for questions if any but will not be seeing her tomorrow.
--- NOTE | 2016-07-29 12:05 | DRSVH ---
PROCEDURE: X-RAY CHEST ONE VIEW, PORTABLE ([id number]) INDICATIONS: intubated and sedated TECHNIQUE: One view of the chest was acquired. COMPARISON: [facility], CR, XR CHEST 1VW (PORTABLE), 07/28/2016, 3:24. FINDINGS: Surgical changes and devices: There is interval removal of the endotracheal and nasogastric tubes. R ight internal jugular catheter is stable in position. Lungs and pleura: There is improved aeration in the left retrocardiac region with a few linear opaci ties likely representing residual atelectasis. There is also mild linear atelectasis in the right me dial lung base. No pleural effusions or pneumothorax. Mediastinum: Mediastinal contours appear unchanged. Heart size is normal. Bones and chest wall: No suspicious bony lesions. Overlying soft tissues appear unremarkable. IMPRESSION: 1. Improved aeration in the left lung base with probable bibasilar residual atelectasis. Dictated by: James Bales M.D. on 07/29/2016 at 11:55 Approved by: James Bales M.D. on 07/29/2016 at 11:58
--- NOTE | 2016-07-29 12:54 | NUR ---
NUTRITION FOLLOW-UP: Assess: 56 YO F admitted to CCU with ARDS, bilateral aspiration pneumonia, septic shock, acute kidney injury, hyperkalemia, encephalopathy, multiple drug abuse, including heroin, methadone, gabapentin, and alcohol. She was successfully extubated yesterday; diet advanced to dysphagia mechanical, thin liquids today. PO intake not yet recorded. Pt. has been without nutrition since admit > 5 D. PMHX: HTN, depression, anxiety, chronic pain, degenerative disc disease. DIET: Dysphagia mechanical, thin liquids.. LABS: K+ 3.4, Glu 104, Phos 1.9, Mg 1.4, AST 120, AST 81, ALT 151, Alb 2.6, Lipase 323. MEDICATIONS: Reviewed. Lactulose, esmolol, thiamine. GI: BM x 8 today. SKIN: No issues noted. ANTHROPOMETRICS: Wt: 79.5 kg, BMI 27.0 kg/m2, Admit wt: 82.1 kg. ESTIMATED NEEDS: VENT/RADHA Calories: 7170-8662 kcal/day (20-25 kcal/kg BW) Protein: 99-123 g/day (1.2-1.5 g/kg BW) NUTRITION DIAGNOSIS: 1) Inadequate oral intake related to decreased ability to consume sufficient energy as evidenced by NPO/VENT status - RESOLVING WITH EXTUBATION, DIET ADVANCE. 2) Chewing / swallowing difficulties related to recent intubation, as evidenced by requirement for modified diet texture, per ST order. INTERVENTION: 1) Will add Ensure to trays due to prolonged NPO status. MONITOR/EVALUATE: Diet advance, PO intake, labs, GI, POC, nutrition status. Follow per high nutrition risk guidelines.
--- NOTE | 2016-07-29 13:45 | NUR ---
Evaluation completed. Please go to "Notes" then click on "Assessments and Notes" (bottom left corner of screen). Then select appropriate discipline tab on top of screen.
--- NOTE | 2016-07-29 13:52 | NUR ---
Pt transferred to [facility] at 1345hrs Pt was able to stand and transfer from wheelchair to the bed with stand by assist. She follows commands but is not oriented to time date or place. She is conversive but her responses are slowed. VS are stable.
[2016-07-29 14:47] LABS: APPEARANCE,URINE HAZY (CLEAR,HAZY); COLOR,URINE YELLOW (YELLOW); OCCULT BLOOD,URINE MODERATE (NEGATIVE); UROBILINOGEN,URINE NORMAL (NORMAL)
--- NOTE | 2016-07-29 15:01 | NUR ---
Note Patient denied any pain or discomfort today. Patient was able to use her call light appropriately to make her needs known- She made no attempts to get out of bed. when asked what year it is- patient replied 2009, who is the precedent of [place] she replied MR. Jonas, and she also believed is was in [place]- patient was reoriented but remained forgetful- family visiting at bedside, frequent rounds. Patient continued to have frequent liquid stools placed on contact enteric isolation pending stool results from c-Diff. Electrolyte replacement MD orders- follow up labs after electrolyte replacement completed. Up with PT to a chair- patient tolerated the transfer relatively well except her heart rate increased to 130-140 ranges with increase respiratory rate to mid 30s- MD aware- proceed with transfer to [facility] tale. Verbal bedside report was given to the receiving RN prior to transfer.
--- NOTE | 2016-07-29 16:09 | NUR ---
P: Resp, Neuro, Social I,E: Pt is doing well on room air with sats at 96%. She has a strong dry cough. Pt is not oriented to place or date, but is to self and family. She is able to follow commands. Her speech is slowed and at times slurred. Pt has not had visitors here for my part of the shift. She continues to have liquid diarrhoea. VS are stable.
--- NOTE | 2016-07-29 16:43 | PCM.PNMED ---
Subjective Date of Service Jul 29, 2016 Subjective overnight: No acute events overnight. The patient remained tachypneic with good oxygenation. Today: Patient states that she feels good today. She denies any chest pain or shortness of breath. She denies any issues with urination or stooling. She feels like she is improving and so does her . Exam Vital Signs Vital Sign - Last Date Time Temp Pulse Resp B/P Pulse Ox O2 Delivery O2 Flow Rate FiO2 07/29/16 04:30 Supplement Oxygen 07/29/16 04:30 36.8 78 28 146/88 97 2.00 07/28/16 16:37 40 Intake and Output 07/28/16 07/28/16 07/29/16 Cumulative From/Thru 15:00 23:00 07:00 07/24/16 09:02 - 07/29/16 06:03 Intake Total 1579 ml 1267 ml 92192 ml Output Total 3400 ml 1040 ml 56817 ml Balance -1821 ml 227 ml 6193 ml Intake Oral 180 ml IV Total 1579 ml 1267 ml 46141 ml Tube Irrigant 60 ml Output Urine Total 3400 ml 950 ml 97502 ml Stool Total 90 ml 90 ml Gastric Drainage Total 275 ml # Bowel Movements 3 8 15 Exam Gen.: Mildly obese middle-aged female appearing older than stated age on high flow nasal cannula Eyes: anisocoria with right pupil larger than left, and icteric sclera noninjected conjunctiva HENT: atraumatic, normocephalic, Mucus membranes moist, no central cyanosis noted, no oropharyngeal cobblestoning, high flow nasal cannula in place Neck: supple, trachea midline, right IJ in place, No JVD noted Cardiac: Regular rate and regular rhythm and no murmur appreciated Lungs: Mild coarse sounding in the bases bilaterally left greater than right without significant expiratory wheezes abdomen: Nontender, non-distended, normoactive bowel tones, soft : Griffin in place Extremities: Pulses intact at radial and dorsalis pedis bilaterally, No cyanosis , clubbing or edema Neurologic: Anisocoria described above, patient follows commands able to move hands and feet all intubated Psychiatric: Flat affect and depressed mood, patient responds to all questions appropriately Lab and Diagnostics Result Diagram: 07/29/16 0455 07/29/16 0455 X-Rays, CTs and MRIs PROCEDURE: CT ABDOMEN AND PELVIS WITHOUT CONTRAST IMPRESSION: 1. Severe bilateral lower lobe pneumonia. 2. Distended distal small bowel loops, suggestive of gastroenteritis. 3. Thickening of the transverse, descending, and sigmoid colon, with differential considerations including ischemia, infection, and inflammation. 4. Fecal impaction within the rectum. 5. Proctitis. 6. Normal appendix. 7. Findings suggestive of pancreatitis; recommend correlation with laboratory testing. 8. Nonobstructing left nephrolith. 9. Moderately distended gallbladder. If there is clinical evidence for cholecystitis, ultrasound is recommended for further assessment. Dictated by: Ambreen Patel M.D. on 07/24/2016 at 11:04 PROCEDURE: CT BRAIN WITHOUT CONTRAST IMPRESSION: 1. No acute intracranial disease process. 2. Complete opacification of the right maxillary sinus which could be inflammatory or neoplastic. Dictated by: Sheyla Chinchilla MD, PhD on 07/24/2016 at 9:18 PROCEDURE: X-RAY CHEST ONE VIEW, PORTABLE IMPRESSION: Suspect bilateral lower lobe pneumonia. Dictated by: Ana Cristina Manjarrez M.D. on 07/24/2016 at 11:00 PROCEDURE: MRI BRAIN WITHOUT CONTRAST ([id number]) IMPRESSION: Severe right maxillary sinus disease otherwise unremarkable examination as above. Dictated by: Kendrick Moran M.D. on 07/26/2016 at 18:26 Approved by: Kendrick Moran M.D. on 07/26/2016 at 18:30 PROCEDURE: X-RAY CHEST ONE VIEW, PORTABLE ([id number]) IMPRESSION: 1. Improved aeration in the left lung base with probable bibasilar residual atelectasis. Dictated by: James Bales M.D. on 07/29/2016 at 11:55 Approved by: James Bales M.D. on 07/29/2016 at 11:58 12-lead ECG Rate 110 QTc 433 Sinus tachycardia with no acute ischemic changes Cardiac Echo Impressions Echocardiogram Report Interpretation Summary The patient was in sinus tachycardia with heart rates between 123-127 bpm during the exam. The left ventricle is normal in size. The ejection fraction is estimated to be 65-70%. The right ventricle is normal in size and function. There is mild mitral regurgitation. There is a moderate left-sided pleural effusion. No obvious valvular vegetation seen. However if clinical suspicion for endocarditis is high, consider SOPHIE. Reading Physician:AM Additional Diagnostics EEG IMPRESSION: This EEG performed in the lethargic state is abnormal. The diffuse polymorphic slowing principally high amplitude delta and, at times, appearing triphasic-like, is suggestive of moderate cerebral cortical dysfunction/encephalopathy. This is nonspecific and may be seen in a wide variety of different clinical conditions, including toxic, metabolic, hypoxic, inflammatory, autoimmune, and infectious states. It may also be seen in the setting of sedative agents. There were no focal, lateralized, or epileptiform discharges noted. There were no seizures seen. If clinically indicated, I do recommend a repeat electroencephalogram if the patient is noted to become more alert or if there are any other new neurologic changes. Clinical correlation is advised. Ken Awan MD 07/26/16 2059 [facility] DateTimeAnalyzed 05:28:00 -_ pH ____7.566 - 7.350 7.450 pCO2 ___24.4__ -mmHg 35.0 45.0 pO2 ___54.6__ -mmHg 69.0 116 HCO3- ___22.2__ -mmol/L 22.0 26.0 Assessment & Plan Patient is a 56 year old female with a history of HTN, anxiety and osteoarthritis with chronic narcotic use. She presented to [facility] on 07/24/16 via EMS with altered mental status. Found to have hyperkalemia, pneumonia and an significant kidney injury. Admitted for management of her numerous co- existing conditions to the ICU for what is likely to be a prolonged hospital admission. Hospital day 6 1. Severe sepsis, acute, present on admission, presumed resolved however currently under evaluation - Criteria met at admission: tachycardia (105), fever (38.2), considered possible respiratory and possibly GI source - Norepinephrine initially required to maintain a MAP >65, patient has been normotensive for several days - No cultures have ever returned positive, however imaging studies show maxillary sinusitis, and patient continues to have increasing leukocytosis - Blood cultures, stool PCR for C. difficile, urine cultures all reorder on and pending - Patient is currently on Zosyn for severe maxillary sinusitis seen in multiple imaging studies 2. Metabolic and toxic encephalopathy, acute, present on admission, under evaluation - Concern for toxic ingestion as patient has a history of heroin use, gabapentin misuse. - Urine tox in the ED positive for meth and heroin. - Gabapentin drawn several days ago returned high at 36, ethylene glycol and methanol levels negative. - CSF PCR negative for infection - EEG suggestive of moderate cerebral cortical dysfunction/encephalopathy with recommendations to correlate clinically - MRI shows severe maxillary sinusitis without notable brain abnormalities - Patient continues to have delayed but proper response to questions 3. Primary Respiratory alkalosis, not present at admission, acute - Patient continues to overbreathing event with increased respiratory rate - health care technician to place patient on pressure control ventilation with decreased pressure support in hopes of increasing retained CO2 - Extubated on 07/28/2016, particularly following patient to be placed on BiPAP mask per pulmonology recommendations - Continue to monitor ABGs 4. possible Bilateral pneumonia, acute, present on admission, - Zosyn and azithromycin started in the ED. - Viral PCR panel ordered all negative - Strep pneumo and legionella urine antigens ordered negative - Sputum culture ordered and negative. - MRSA screening ordered negative - O2 supplementation to keep O2 saturations 92-96%. - DuoNeb available QID. Albuterol neb available Q2 PRN. - placed on BiPAP mask and high flow nasal cannula postextubation per pulmonology recommendations - Chest x-ray on 07/29 shows significant improvement in aeration of the lungs 5. Acute kidney injury, present on admission. resolved - IV fluids initiated in the ED. Continue as above in #1. - Ethylene glycol and methanol levels are ordered and pending. - Dr. Jeff of nephrology has been consulted and we appreciate her input. - Significantly improved - Continue to monitor BMP. 6. Pancreatitis, acute, present on admission. improved - BISAP score of 4 conferring >15% risk of mortality. H[place]-II score 19 with and 11-18% risk of mortality. - [place] score calculated 48 hours after admission is approximately 15% predicted mortality - Lipase initially at 1200 improved dramatically - Lipase bumped back on 07/29/2016 to 300 continue to monitor - Patient denies any ongoing nausea and states she is hungry 6. Anion gap metabolic acidosis, acute, present on admission, improved - Secondary to sepsis, RADHA. - Continue IV fluids and correction of underlying problems. - ABG PRN for further monitoring. 7. Hyperkalemia, acute, present on admission. Resolved - Patient received insulin and glucose, albuterol, calcium gluconate, sodium bicarb in the ED with improvement on repeat BMP. - Improved - Will continue to monitor BMP and correct as needed. 8. Elevated transaminases, acute, present on admission. Improved - Uncertain etiology. Concern for hepatitis given patient's illicit drug use. - Hepatitis panel ordered and pending. - Continue to monitor CMP. 9. Rhabdomyolysis, acute, present on admission. Improved - CPK increasing with subsequent lab measurements. - Patient has essentially been in bed last 48-72 hours with fall on Sunday in the shower. - IV hydration ongoing as above. - Continue to monitor CPK level. 10. Hypertension, chronic, presume stable. - Patient has been hypotensive so will hold home medications. Home regimen includes clonidine 0.3 mg TID and triamterene-HCTZ 37.5/25 mg daily. 11. Depression with anxiety, chronic, presume stable. - Will hold home venlafaxine 75 mg daily at this time as patient is in CCU and NPO. 12. Chronic pain syndrome with opiate dependence, presume stable. - History of opiate habituation. Was being tapered down per office notes from Dr. Eli. - Will give no opiates during this admission if it can be avoided, especially while patient obtunded. - Due to kidney injury will also avoid NSAID's. - Could consider use of Tylenol but due to elevated transaminases would give less than 2 grams daily. 13. Alcohol use disorder, chronic, stable - Reported to ingest at least a bottle of wine daily. - While patient obtunded will give no scheduled benzodiazepines. - Monitor closely for signs of withdrawal and will initiate CIWA if needed. - Supplement Thiamine 14. Thyroid nodules, chronic, presume stable. - Recommend continued outpatient follow up. - Will not order TSH/T4 at this time as patient critically ill and this will likely return with low values for all. - Antiemetic available PRN. Disposition: Patient will likely be inpatient for several days. No current barriers to discharge expected. PCP James Eli MD Pain Evaluation: Adequate Pain Control GI Prophylaxis: Proton Pump Inhibitor VTE Prophylaxis: Sub-Q Heparin (Unfractionated) VTE Mechanical Devices: Intermittant Pneumatic CD Resuscitation Status: CPR: Attempt Resuscitation Attending Statement The patient was seen and examined together with Dr. Amin on 07/29/2016 and I agree with the history, exam and plan as outlined in the note above. . Car Amin DO Jul 29, 2016 07:19 Al Del Rosario MD Jul 30, 2016 17:43
[2016-07-29 20:03] LABS: Magnesium 1.8 mg/dL (1.6-2.6); Phosphorus 1.9 mg/dL (2.5-4.9)
[2016-07-29] MEDS: fentaNYL-PF 50 mCg/mL 2 mL Inj IVPUSH PRN (22:02)
[2016-07-30] VITALS (12 sets, daily range): BP systolic 120–159; BP diastolic 62–92; PULSE 82–100; RESP 18–28; O2SAT 91–99
[2016-07-30] MEDS: Piperacillin-Tazo 3.375 Gm Inj 3.375 GM in Dextrose 5% Minibag Plus 50 ML IV SCH ×3 (00:23→16:39)
[2016-07-30] MEDS: fentaNYL-PF 50 mCg/mL 2 mL Inj IVPUSH PRN ×7 (00:53→19:37)
--- NOTE | 2016-07-30 01:57 | NUR ---
PAIN/BM/POTASSIUM Pt c/o a severe headache throughout the night, which was temporarily relieved by 25 mcg Fentanyl PRN @ around 2200 and again @ 0100. Pt continues to have loose yellow/brown liquid stools x3. Pt's K+ was slightly low @ 3.2, pt was given a 40 mEq K+ rider. Labs to be drawn in the AM. Vitals stable, A&Ox3 with slight confusion and delayed response.
[2016-07-30 03:03] LABS: BASOPHILS % (AUTO) 0.6 % (0-3); EOSINOPHILS % (AUTO) 1.1 % (0-5); MONOCYTES % (AUTO) 4.6 % (4-12); Mean Corpuscular Hemoglobin 30.9 pg (27.0-35.0); Mean Corpuscular Volume 90.5 fL (81-100); NEUTROPHILS % (AUTO) 82.3 % (40-74); Platelet Count 151 bil/L (150-400)
[2016-07-30] MEDS: Albuterol-Ipratropium 3 mL Inhalation Solution NEB SCH ×4 (06:00→20:28)
[2016-07-30] MEDS: Dextrose 5% 0.45% NaCl 1,000 ML IV SCH ×3 (07:57→18:05)
[2016-07-30] MEDS: Pantoprazole 4 mg/mL 10 mL Inj IVPUSH SCH ×2 (08:00→16:35)
[2016-07-30] MEDS: Heparin 5,000 Unit/mL Inj SUBQ SCH ×2 (08:02→16:35)
[2016-07-30] MEDS: Thiamine Inj 200 MG in Dextrose 5% 50 ML IV SCH (08:03)
[2016-07-30] MEDS: Senna-Docusate 8.6-50 mg Tablet PO SCH (08:06)
--- NOTE | 2016-07-30 12:11 | NUR ---
Social Work Note: Continued Discharge Planning Data& Assessment: Per MD in morning rounds, pt mentation and health is improving. SW met with pt at bedside to check in and assess for any unmet needs. Pt is not at her baseline mobility at this time and PT is recommending SNF currently. MD and pt are hopeful that she will improve enough in the next couple of days with PT and nursing to be able to go home without any additional needs. Pt explained she is feeling stronger today. Per H&P, pt consumes large amounts of wine daily. SW discussed alcohol intake with pt, pt denied that her alcohol intake is an issue for her, she has not experienced any withdrawal symptoms and denied experiencing any withdrawal symptoms in the past. Pt accepted DPOA/Advance Directive paperwork to review and complete when possible. Pt declined any other resources at this time, pt denied any other needs at this time. SW to continue to follow. Plan: Anticipated discharge home via POV when medically ready. SW to follow for pt progression with PT and medical progression for any discharge planning needs. Pt declined any other resources at this time, pt denied any other needs at this time. SW to continue to follow. EVERT Lujan
--- NOTE | 2016-07-30 16:26 | PCM.PNMED ---
Subjective Date of Service Jul 30, 2016 Subjective This morning the patient reports a desire to get up and move more. She still admits to feeling weak on her feet but feels good moving to and from the bedside commode. She would like a better diet and understands that she must be cleared by speech therapy for that. Patient is motivated to go home and denies any other complaints at this time. Patient had diarrhea overnight. C. diff sent and was negative. Reported to be slightly confused with slowed speech but was generally appropriate. Exam Vital Signs Vital Sign - Last Date Time Temp Pulse Resp B/P Pulse Ox O2 Delivery O2 Flow Rate FiO2 07/30/16 16:05 37.0 18 147/76 97 Room Air 07/30/16 15:40 95 07/29/16 11:55 2.00 07/28/16 16:37 40 Intake and Output 07/29/16 07/29/16 07/30/16 Cumulative From/Thru 15:00 23:00 07:00 07/24/16 09:02 - 07/30/16 06:30 Intake Total 2426 ml 1837 ml 83941 ml Output Total 850 ml 406 ml 09662 ml Balance 1576 ml 1431 ml 9200 ml Intake Oral 300 ml 100 ml 580 ml IV Total 2126 ml 1737 ml 29794 ml Tube Irrigant 60 ml Output Urine Total 650 ml 400 ml 58418 ml Stool Total 200 ml 290 ml Urine/Stool Mix 6 ml 6 ml Gastric Drainage Total 275 ml # Bowel Movements 2 17 Exam Mildly obese, middle-aged female appearing older than stated age on high flow nasal cannula Eyes: anisocoria with right pupil larger than left, EOMI, sclera anicteric HENT: atraumatic, normocephalic, mucus membranes moist, no oral thrush appreciated, Neck: supple, trachea midline, right IJ in place, No JVD noted Cardiac: Regular rate and regular rhythm and no murmur appreciated Lungs: Relatively clear today with mild bibasilar crackles and no wheezing Abdomen: Nontender, non-distended, normoactive bowel tones, soft; FMS removed : Griffin removed Extremities: No cyanosis, clubbing; mild edema in the hands but none in the lower extremities Pulses intact at radial and dorsalis pedis bilaterally Neurologic: cranial nerves appear grossly intact, speech normal, able to move all extremities grossly Psychiatric: Flat affect and depressed mood, patient responds to all questions appropriately IVs and Medications Medications Reviewed: Medications were reviewed in detail Lab and Diagnostics Result Diagram: 07/30/1625407/30/16254 X-Rays, CTs and MRIs PROCEDURE: CT ABDOMEN AND PELVIS WITHOUT CONTRAST IMPRESSION: 1. Severe bilateral lower lobe pneumonia. 2. Distended distal small bowel loops, suggestive of gastroenteritis. 3. Thickening of the transverse, descending, and sigmoid colon, with differential considerations including ischemia, infection, and inflammation. 4. Fecal impaction within the rectum. 5. Proctitis. 6. Normal appendix. 7. Findings suggestive of pancreatitis; recommend correlation with laboratory testing. 8. Nonobstructing left nephrolith. 9. Moderately distended gallbladder. If there is clinical evidence for cholecystitis, ultrasound is recommended for further assessment. Dictated by: Ambreen Patel M.D. on 07/24/2016 at 11:04 PROCEDURE: CT BRAIN WITHOUT CONTRAST IMPRESSION: 1. No acute intracranial disease process. 2. Complete opacification of the right maxillary sinus which could be inflammatory or neoplastic. Dictated by: Sheyla Chinchilla MD, PhD on 07/24/2016 at 9:18 PROCEDURE: X-RAY CHEST ONE VIEW, PORTABLE IMPRESSION: Suspect bilateral lower lobe pneumonia. Dictated by: Ana Cristina Manjarrez M.D. on 07/24/2016 at 11:00 PROCEDURE: MRI BRAIN WITHOUT CONTRAST ([id number]) IMPRESSION: Severe right maxillary sinus disease otherwise unremarkable examination as above. Dictated by: Kendrick Moran M.D. on 07/26/2016 at 18:26 PROCEDURE: X-RAY CHEST ONE VIEW, PORTABLE ([id number]) IMPRESSION: 1. Improved aeration in the left lung base with probable bibasilar residual atelectasis. Dictated by: James Bales M.D. on 07/29/2016 at 11:55 Cardiac Echo Impressions Echocardiogram Report Interpretation Summary The patient was in sinus tachycardia with heart rates between 123-127 bpm during the exam. The left ventricle is normal in size. The ejection fraction is estimated to be 65-70%. The right ventricle is normal in size and function. There is mild mitral regurgitation. There is a moderate left-sided pleural effusion. No obvious valvular vegetation seen. However if clinical suspicion for endocarditis is high, consider SOPHIE. Reading Physician:KIYA Additional Diagnostics EEG IMPRESSION: This EEG performed in the lethargic state is abnormal. The diffuse polymorphic slowing principally high amplitude delta and, at times, appearing triphasic-like, is suggestive of moderate cerebral cortical dysfunction/encephalopathy. This is nonspecific and may be seen in a wide variety of different clinical conditions, including toxic, metabolic, hypoxic, inflammatory, autoimmune, and infectious states. It may also be seen in the setting of sedative agents. There were no focal, lateralized, or epileptiform discharges noted. There were no seizures seen. If clinically indicated, I do recommend a repeat electroencephalogram if the patient is noted to become more alert or if there are any other new neurologic changes. Clinical correlation is advised. Ken Awan MD 07/26/162058 Assessment & Plan Patient is a 56 year old female with a history of HTN, anxiety and osteoarthritis with chronic narcotic use. She presented to [facility] on 07/24/16 via EMS with altered mental status. Found to have hyperkalemia, pneumonia and an significant kidney injury. Admitted for management of her numerous co- existing conditions to the ICU for what is likely to be a prolonged hospital admission. Hospital day 7 1. Severe sepsis, acute, present on admission, presumed resolved however currently under evaluation - Criteria met at admission: tachycardia (105), fever (38.2), considered possible respiratory and possibly GI source - Norepinephrine ordered but never required for pressor support. - No cultures have ever returned positive, however imaging studies show maxillary sinusitis, and patient continues to have increasing leukocytosis - Blood cultures, stool PCR for C. difficile, urine cultures all reorder on and pending - Patient is currently on Zosyn for severe maxillary sinusitis seen in multiple imaging studies (day 5). 2. Metabolic and toxic encephalopathy, acute, present on admission, improving. - Concern for toxic ingestion as patient has a history of heroin use, gabapentin misuse. - Urine tox in the ED positive for meth and heroin. - Mentally clearing slowly. Will continue PT. Reorient frequently. Encourage family presence and familiar objects. Limit sedating medications. 3. Possible Bilateral pneumonia, acute, present on admission, improved. - O2 supplementation to keep O2 saturations 92-96%. - DuoNeb available QID. Albuterol neb available Q2 PRN. - Continue Zosyn (day 5). 4. Acute kidney injury, present on admission. resolved. - Presumed secondary to rhabdomyolysis and poor PO intake prior to admission. - Patient received sufficient IV fluids. - Continue to monitor BMP. 5. Pancreatitis, acute, present on admission. improved - BISAP score of 4 conferring >15% risk of mortality. [place]-II score 19 with and 11-18% risk of mortality. - [place] score calculated 48 hours after admission is approximately 15% predicted mortality - Continue to monitor lipase and patient symptoms. - Diet being increased per speech therapy. 6. Anion gap metabolic acidosis, acute, present on admission, resolved. - Secondary to sepsis, RADHA. 7. Hyperkalemia, acute, present on admission. Resolved - Likely secondary to significant RADHA. - Will continue to monitor BMP and correct as needed. 8. Elevated transaminases, acute, present on admission. Improved - Uncertain etiology, possibly shock liver. Hepatitis negative. - Continue to monitor CMP. 9. Rhabdomyolysis, acute, present on admission. Improved - Patient has essentially been in bed 48-72 hours prior to admission with fall on Sunday in the shower. - Sufficient fluid resuscitation done this admission. - CPK normalized 07/30/16. 10. Hypertension, chronic, presume stable. - Home regimen includes clonidine 0.3 mg TID and triamterene-HCTZ 37.5/25 mg daily. - Will re-start triamterene-HCTZ. 11. Depression with anxiety, chronic, presume stable. - Restart venlafaxine 75 mg daily. 12. Chronic pain syndrome with opiate dependence, presume stable. - History of opiate habituation. Was being tapered down per office notes from Dr. Eli. - Will give no opiates during this admission if it can be avoided. - Due to kidney injury will also avoid NSAID's. - Could consider use of Tylenol but due to elevated transaminases would give less than 2 grams daily. 13. Alcohol use disorder, chronic, stable - Reported to ingest at least a bottle of wine daily. - Monitor closely for signs of withdrawal and will initiate CIWA if needed. - Supplement Thiamine daily. 14. Thyroid nodules, chronic, presume stable. - Recommend continued outpatient follow up. - Will not order TSH/T4 at this time as patient critically ill and this will likely return with low values for all. 15. Primary Respiratory alkalosis, not present at admission, resolved. - Patient was overbreathing on mechanical ventilation. Extubated on 2016. Currently doing well. - Antiemetic available PRN. Disposition: Patient will likely be inpatient for several days to receive more intensive PT/ST. Plan for patient to go home at discharge. Uncertain of need for home health at this time. PCP James Eli MD GI Prophylaxis: Proton Pump Inhibitor VTE Prophylaxis: Sub-Q Heparin (Unfractionated), SCDs Resuscitation Status: CPR: Attempt Resuscitation Attending Statement The patient was seen and examined together with Dr. Tipton on 07/30/2016 and I agree with the history, exam and plan as outlined in the note above. . Bonny Tipton DO Jul 30, 2016 16:26 Al Del Rosario MD Jul 30, 2016 17:44 - Reported to ingest at least a bottle of wine daily. - While patient obtunded will give no scheduled benzodiazepines. - Monitor closely for signs of withdrawal and will initiate CIWA if needed. - Supplement Thiamine 14. Thyroid nodules, chronic, presume stable. - Recommend continued outpatient follow up. - Will not order TSH/T4 at this time as patient critically ill and this will likely return with low values for all. - Antiemetic available PRN. Disposition: Patient will likely be inpatient for several days. No current barriers to discharge expected. PCP James Eli MD GI Prophylaxis: Proton Pump Inhibitor VTE Prophylaxis: Sub-Q Heparin (Unfractionated) VTE Mechanical Devices: Intermittant Pneumatic CD Resuscitation Status: CPR: Attempt Resuscitation Bonny Tipton DO Jul 30, 2016 16:26
--- NOTE | 2016-07-30 17:33 | NUR ---
Pain/Ambulation/BM Pt. has asked for pain medication throughout shift from her neck down to her knees and feet. Pt. states that her pain keeps her from ambulating any further and wants to sit down. Pt. did state she feels stronger than yesterday. Pt. has had a few episodes of diarrhea that are brown/yellow and loose, small, but states the amount of times she went to the bathroom has decreased. Pt. tested negative for CDIFF and is off isolation precautions.
--- NOTE | 2016-07-30 19:03 | NUR ---
CVL Red lumen CVL sluggish and does not draw blood, blue and white lumens positive for blood return. Red lumen may need cathflow in the future.
[2016-07-31] VITALS (9 sets, daily range): BP systolic 128–147; BP diastolic 71–80; PULSE 79–102; RESP 16–36; O2SAT 96–99
[2016-07-31] MEDS: fentaNYL-PF 50 mCg/mL 2 mL Inj IVPUSH PRN ×5 (00:07→20:07)
[2016-07-31] MEDS: Piperacillin-Tazo 3.375 Gm Inj 3.375 GM in Dextrose 5% Minibag Plus 50 ML IV SCH ×3 (00:07→18:12)
[2016-07-31] MEDS: Heparin 5,000 Unit/mL Inj SUBQ SCH ×3 (00:08→18:12)
--- NOTE | 2016-07-31 00:24 | NUR ---
IV FLUIDS/PAIN Pt's IV fluids DC'd due to normal lab values and increased PO fluid intake. Pt still c/o neck/head pain throughout the night. Fentanyl 25mcg given x2 so far with good results. Pt's speech much more clear than previous night. Pt's vitals stable, pt more alert than previous night. No other issues noted at this time.
[2016-07-31 03:45] LABS: BASOPHILS % (AUTO) 0.5 % (0-3); EOSINOPHILS % (AUTO) 1.5 % (0-5); MONOCYTES % (AUTO) 3.9 % (4-12); Mean Corpuscular Hemoglobin 30.8 pg (27.0-35.0); Mean Corpuscular Volume 94.3 fL (81-100); NEUTROPHILS % (AUTO) 83.2 % (40-74); Platelet Count 143 bil/L (150-400)
[2016-07-31 04:28] LABS: Magnesium 1.5 mg/dL (1.6-2.6)
[2016-07-31] MEDS: Albuterol-Ipratropium 3 mL Inhalation Solution NEB SCH ×4 (07:29→20:33)
[2016-07-31] MEDS ORDERED: Magnesium Sulf 2 Gm/50mL Water 2 GM in IV Premix 1 EACH IV ONE (08:30)
[2016-07-31] MEDS: Senna-Docusate 8.6-50 mg Tablet PO SCH (08:30)
[2016-07-31] MEDS: Pantoprazole 4 mg/mL 10 mL Inj IVPUSH SCH ×2 (09:24→16:30)
[2016-07-31] MEDS: Venlafaxine XR 75 mg ER24 Capsule PO SCH (09:25)
[2016-07-31] MEDS: Thiamine Inj 200 MG in Dextrose 5% 50 ML IV SCH (09:26)
[2016-07-31] MEDS ORDERED: Potassium Chloride Oral 20 mEq SR Tab(K 3 - 3.7 & Creat < 2) PO ONE (12:10)
--- NOTE | 2016-07-31 12:54 | PROG NOTE ---
[address] [address] PROGRESS NOTE PATIENT: ALESSANDRA WOOTEN : 1960 MR#: [id number] ADMIT: 07/24/2016 JOB ID: [id number] DATE: 07/31/2016 REASON FOR FOLLOWUP: Aspiration pneumonia with some maxillary sinusitis in a patient with respiratory failure and polysubstance abuse. INTERVAL HISTORY: Over the weekend, the patient has been extubated and moved to the [facility]. She is now quite comfortable and appears in no distress. She tells us that she is feeling much better and specifically denies headache or sinus pain, cough or shortness of breath, nausea, vomiting, diarrhea, or dysuria. She says she has no abdominal pain at all. PHYSICAL EXAMINATION: Reveals an afebrile woman. Temp 36.9, pulse 99, respiratory rate 20, blood pressure 132/77, saturating well on room air. She is comfortable, alert and oriented. Oral cavity without thrush or hairy leukoplakia. No scleral icterus. Lungs fairly clear anteriorly. Cardiac tones without murmur. Regular rate and rhythm. Abdomen without any focal mass or tenderness, surprisingly, and specifically no pancreatic or upper gastric mass. No hepatomegaly and no ascites. No skin rashes noted. LABORATORIES: Include a white count which is bouncing around, currently 21,000, and it has ranged from 14,000 to 26,000 over the past five days. Platelet count is slowly improving, now 143,000. Hematocrit is 25 only. Creatinine 0.8. Bilirubin 0.7. AST continues to come down. It is down to 55 now having started off around 300. ALT started off at 200. It is now down to 45, so we have improving alcoholic hepatitis. Procalcitonin is pending. Albumin 2.4. Micro: We have negative spinal fluid and stool PCR. Negative blood cultures. Negative C diff. Negative urine cultures. IMAGING: Includes a chest x-ray from two days ago now. It shows improving aeration in the left base. IMPRESSION: This patient has what appears to be a right maxillary sinusitis, in association with aspiration pneumonia and her previous respiratory failure. She is now extubated and looking much better overall. The main remaining question here would be how long to continue with her antibiotics and what is the cause of her persistent leukocytosis. It is worth noting that her lipase is actually slowly increasing, so it may be she has more pancreatitis than is clinically evident. Also possible is just a leukocytosis due to her alcoholic hepatitis, even though that is much better. In terms of infections, it seems like her pneumonia is rapidly resolving, and she has already had a week of Zosyn which should be adequate for a severe aspiration pneumonia. The only infection which may need more treatment would be of maxillary sinusitis. RECOMMENDATIONS: 1. Will check a procalcitonin today. 2. Will check an ultrasound of the liver and pancreas. 3. Will continue with Zosyn at least overnight with a plan to consider discontinuing tomorrow.
--- NOTE | 2016-07-31 14:44 | NUR ---
[facility]
--- NOTE | 2016-07-31 16:17 | NUR ---
Social Work Note: Continued Discharge Planning Data& Assessment: SW met with pt and pt son at bedside to discuss discharge planning. Per PT, pt requires SNF at time of discharge. Per MD request, SW inquired about inpt rehab with pt. Pt is agreeable to go to inpt rehab and her preference is for [facility] inpt rehab in [place] and [facility] inpt rehab in [place] as her second choice. Pt family is moving to [place] this Sunday. Per Count includes the [facility], the only agency that travels to [place], they will not be able to accept pt due to a combination of location and payer source. Pt is also agreeable to referral being sent to [facility] Swing Bed program. Pt confirmed that her works nights and will be able to be home with her during the day to aid in any additional strengthening or assistance when being discharged home from inpt rehab. Pt son also lives in the area. Pt Lukasz Hyatt ([phone]). Pt and pt son deny any other needs at this time. SW to continue to follow. Plan: Anticipated discharge to [facility] Inpt rehab vs. [facility] inpt rehab vs. [facility] swing bed pending acceptance. Pt and pt son deny any other needs at this time. SW to continue to follow. EVERT Lujan
--- NOTE | 2016-07-31 16:53 | DRSVH ---
PROCEDURE: US ABDOMEN ([id number]) INDICATIONS: WBC up-alc hep & pancreatitis-? abscess TECHNIQUE: Real-time scanning was performed of the abdominal and retroperitoneal organs, with image documentatio n. COMPARISON: None. FINDINGS: Liver: Liver is normal in size and homogeneous in echotexture. Gallbladder: Patient is nonfasting and the gallbladder is moderately contracted. No obvious stones o r wall thickening. Biliary ducts: Intrahepatic bile ducts are non-dilated. Extrahepatic bile duct caliber measures 0.8 mm. Normal is 6-7 mm or less in diameter, or 10 mm or less post-cholecystectomy. Pancreas: Visualized portions of the pancreas are sonographically normal. Spleen: Spleen is normal in size and homogeneous in echotexture. Kidneys: Kidneys are normal in size and echotexture. Right kidney measures 9.5 cm long; left kidney measures 10.7 cm long. No hydronephrosis and nonobstructing subcentimeter left renal calcification. No solid masses. Aorta: Visualized aorta is normal in caliber at less than 3 cm. Iliacs: Not visualized. IVC: Intrahepatic inferior vena cava is patent. Miscellaneous: No free abdominal fluid. No right pleural effusion. IMPRESSION: 1. Common bile duct prominent measuring 9 mm. Recommend clinical correlation with LFTs. 2. Subcentimeter nonobstructing left renal calcification. 3. Iliac arteries not well seen. Dictated by: Tex RAYGOZA Interpreted: Eri Ansair MD on 07/31/2016 at 16:51 Transcribed by: CALLI on 07/31/2016 at 16:53 Approved by: Eri Ansari M.D. on 08/01/2016 at 10:45
--- NOTE | 2016-07-31 17:12 | PCM.PNMED ---
Subjective Date of Service Jul 31, 2016 Subjective overnight: No acute events overnight Today: Patient states that she is doing much better today she feels like she is improving daily. She denies any chest pain or shortness of breath. She states she is able to urinate or move her bowels without issue. She is still having soft stools. No abdominal pain. She understands that she must start working on rehabilitation to improve. She does not want to go to rehabilitation but she understands will be necessary. Exam Vital Signs Vital Sign - Last Date Time Temp Pulse Resp B/P Pulse Ox O2 Delivery O2 Flow Rate FiO2 07/31/16 07:32 89 24 97 Room Air 07/31/16 03:25 36.8 128/73 07/29/16 11:55 2.00 07/28/16 16:37 40 Intake and Output 07/30/16 07/30/16 07/31/16 Cumulative From/Thru 15:00 23:00 07:00 07/24/16 09:02 - 07/31/16 06:45 Intake Total 2027 ml 450 ml 16413 ml Output Total 6 ml 1800 ml 37613 ml Balance 2021 ml -1350 ml 9871 ml Intake Oral 220 ml 100 ml 900 ml IV Total 1807 ml 350 ml 68891 ml Tube Irrigant 60 ml Output Urine Total 1500 ml 02790 ml Stool Total 300 ml 590 ml Urine/Stool Mix 6 ml 12 ml Gastric Drainage Total 275 ml # Voids 5 5 # Bowel Movements 3 20 Exam Gen.: Mildly obese middle-aged female appearing older than stated age on nasal cannula Eyes: anisocoria with right pupil larger than left, and icteric sclera noninjected conjunctiva HENT: atraumatic, normocephalic, Mucus membranes moist, no central cyanosis noted, no oropharyngeal cobblestoning Neck: supple, trachea midline, right IJ in place, No JVD noted Cardiac: Regular rate and regular rhythm and no murmur rubs or Gallops appreciated Lungs: Clear to auscultation bilaterally without wheezing or rales rhonchi noted abdomen: Nontender, non-distended, normoactive bowel tones, soft : no pierre in place Extremities: Pulses intact at radial and dorsalis pedis bilaterally, No cyanosis , clubbing or edema Neurologic: Anisocoria described above, cranial nerves II through XII generally intact, patient follows commands able to move hands and feet, no pronator drift , mild dysdiadochokinesia noted in the upper extremities MSK: Strength intact bilaterally in early childhood services coordinator, bicep, tricep, plantar and dorsi flexion Psychiatric: Flat affect and depressed mood, patient responds to all questions appropriately Lab and Diagnostics Result Diagram: 07/31/16 0320 07/31/16 032 X-Rays, CTs and MRIs PROCEDURE: CT ABDOMEN AND PELVIS WITHOUT CONTRAST IMPRESSION: 1. Severe bilateral lower lobe pneumonia. 2. Distended distal small bowel loops, suggestive of gastroenteritis. 3. Thickening of the transverse, descending, and sigmoid colon, with differential considerations including ischemia, infection, and inflammation. 4. Fecal impaction within the rectum. 5. Proctitis. 6. Normal appendix. 7. Findings suggestive of pancreatitis; recommend correlation with laboratory testing. 8. Nonobstructing left nephrolith. 9. Moderately distended gallbladder. If there is clinical evidence for cholecystitis, ultrasound is recommended for further assessment. Dictated by: Ambreen Patel M.D. on 07/24/2016 at 11:04 PROCEDURE: CT BRAIN WITHOUT CONTRAST IMPRESSION: 1. No acute intracranial disease process. 2. Complete opacification of the right maxillary sinus which could be inflammatory or neoplastic. Dictated by: Sheyla Chinchilla MD, PhD on 07/24/2016 at 9:18 PROCEDURE: X-RAY CHEST ONE VIEW, PORTABLE IMPRESSION: Suspect bilateral lower lobe pneumonia. Dictated by: Ana Cristina Manjarrez M.D. on 07/24/2016 at 11:00 PROCEDURE: MRI BRAIN WITHOUT CONTRAST ([id number]) IMPRESSION: Severe right maxillary sinus disease otherwise unremarkable examination as above. Dictated by: Kendrick Moran M.D. on 07/26/2016 at 18:26 PROCEDURE: X-RAY CHEST ONE VIEW, PORTABLE ([id number]) IMPRESSION: 1. Improved aeration in the left lung base with probable bibasilar residual atelectasis. Dictated by: James Bales M.D. on 07/29/2016 at 11:55 Cardiac Echo Impressions Echocardiogram Report Interpretation Summary The patient was in sinus tachycardia with heart rates between 123-127 bpm during the exam. The left ventricle is normal in size. The ejection fraction is estimated to be 65-70%. The right ventricle is normal in size and function. There is mild mitral regurgitation. There is a moderate left-sided pleural effusion. No obvious valvular vegetation seen. However if clinical suspicion for endocarditis is high, consider SOPHIE. Reading Physician:AM Additional Diagnostics EEG IMPRESSION: This EEG performed in the lethargic state is abnormal. The diffuse polymorphic slowing principally high amplitude delta and, at times, appearing triphasic-like, is suggestive of moderate cerebral cortical dysfunction/encephalopathy. This is nonspecific and may be seen in a wide variety of different clinical conditions, including toxic, metabolic, hypoxic, inflammatory, autoimmune, and infectious states. It may also be seen in the setting of sedative agents. There were no focal, lateralized, or epileptiform discharges noted. There were no seizures seen. If clinically indicated, I do recommend a repeat electroencephalogram if the patient is noted to become more alert or if there are any other new neurologic changes. Clinical correlation is advised. Ken Awan MD 07/26/162058 US ABDOMEN ([id number]) IMPRESSION: 1. Common bile duct prominent measuring 9 mm. Recommend clinical correlation with LFTs. 2. Subcentimeter nonobstructing left renal calcification. 3. Iliac arteries not well seen. Dictated by: Tex Jean RR Interpreted: Eri Ansari MD on 07/31/2016 at 16: 51 Transcribed by: CALLI on 07/31/2016 at 16:53 Assessment & Plan Patient is a 56 year old female with a history of HTN, anxiety and osteoarthritis with chronic narcotic use. She presented to [facility] on 07/24/16 via EMS with altered mental status. Found to have hyperkalemia, pneumonia and an significant kidney injury. Admitted for management of her numerous co- existing conditions to the ICU for what is likely to be a prolonged hospital admission. Hospital day 7 1. Severe sepsis, acute, present on admission, resolved - Criteria met at admission: tachycardia (105), fever (38.2), considered possible respiratory and possibly GI source - Norepinephrine ordered but never required for pressor support. - No cultures have ever returned positive, however imaging studies show maxillary sinusitis, and patient continues to have increasing leukocytosis - Blood cultures, stool PCR for C. difficile, urine cultures all reorder on and negative - Patient is currently on Zosyn for severe maxillary sinusitis seen in multiple imaging studies (day 6). - Infectious diseases considering stopping antibiotics tomorrow pending pro- calcitonin 2. possible acute blood loss anemia, not present on admission, under evaluation - Patient had been hematologically stable for several days but had a drop of hemoglobin from 10.4-8.1 on 07/31/2016 - No reports of dark tarry stool or hemoglobinuria - Differential diagnosis includes possible retroperitoneal bleed versus intra- abdominal bleed versus lab error - Repeat H&H ordered and pending 3. Metabolic and toxic encephalopathy, acute, present on admission, improving. - Concern for toxic ingestion as patient has a history of heroin use, gabapentin misuse. - Urine tox in the ED positive for meth and heroin. - Mentally clearing slowly. Will continue PT. Reorient frequently. Encourage family presence and familiar objects. Limit sedating medications. 4. Possible Bilateral pneumonia, acute, present on admission, improved. - O2 supplementation to keep O2 saturations 92-96%. - DuoNeb available QID. Albuterol neb available Q2 PRN. - Continue Zosyn (day 6). 5. Pancreatitis, acute, present on admission. improved - BISAP score of 4 conferring >15% risk of mortality. HABEMATOLEL-II score 19 with and 11-18% risk of mortality. - Garland score calculated 48 hours after admission is approximately 15% predicted mortality - Continue to monitor lipase and patient symptoms. - Diet being increased per speech therapy. 6. Anion gap metabolic acidosis, acute, present on admission, resolved. - Secondary to sepsis, RADHA. 7. Hyperkalemia, acute, present on admission. Resolved - Likely secondary to significant RADHA. - Will continue to monitor BMP and correct as needed. 8. Elevated transaminases, acute, present on admission. Improved - Uncertain etiology, possibly shock liver. Hepatitis negative. - Abdominal ultrasound shows mildly dilated common bile duct without stone blockage, improvement in transaminases and alkaline phosphatase as well as low bilirubin make choledocholithiasis less likely - Continue to monitor CMP. 9. Rhabdomyolysis, acute, present on admission. Improved - Patient has essentially been in bed 48-72 hours prior to admission with fall on Sunday in the shower. - Sufficient fluid resuscitation done this admission. - CPK normalized 07/30/16. 10. Hypertension, chronic, presume stable. - Home regimen includes clonidine 0.3 mg TID and triamterene-HCTZ 37.5/25 mg daily. - Will re-start triamterene-HCTZ. 11. Depression with anxiety, chronic, presume stable. - Restart venlafaxine 75 mg daily. 12. Chronic pain syndrome with opiate dependence, presume stable. - History of opiate habituation. Was being tapered down per office notes from Dr. Eli. - Will give no opiates during this admission if it can be avoided. - Due to kidney injury will also avoid NSAID's. - Could consider use of Tylenol but due to elevated transaminases would give less than 2 grams daily. 13. Alcohol use disorder, chronic, stable - Reported to ingest at least a bottle of wine daily. - Monitor closely for signs of withdrawal and will initiate CIWA if needed. - Supplement Thiamine daily. 14. Thyroid nodules, chronic, presume stable. - Recommend continued outpatient follow up. - Will not order TSH/T4 at this time as patient critically ill and this will likely return with low values for all. 15. Primary Respiratory alkalosis, not present at admission, resolved. - Patient was overbreathing on mechanical ventilation. Extubated on 2016. Currently doing well. 16. Acute kidney injury, present on admission. resolved. - Presumed secondary to rhabdomyolysis and poor PO intake prior to admission. - Patient received sufficient IV fluids. - Continue to monitor BMP. - Antiemetic available PRN. Disposition: Patient will likely be inpatient for 1 more day to receive more intensive PT/ST. Plan for patient to go home at discharge. Uncertain of need for home health at this time. PCP James Eli MD GI Prophylaxis: Proton Pump Inhibitor VTE Prophylaxis: Sub-Q Heparin (Unfractionated), SCDs Resuscitation Status: CPR: Attempt Resuscitation Attending Statement The patient was seen and examined together with Dr. Amin on 07/31/2016 and I agree with the history, exam and plan as outlined in the note above. . Car Amin DO Jul 31, 2016 07:46 Al Del Rosario MD Aug 04, 2016 08:32
[2016-07-31 17:53] LABS: Unsaturated Iron Binding 131.6 ug/dL
--- NOTE | 2016-07-31 19:23 | NUR ---
fentanyl/activity Received care of pt from GISELA Gomez at 16:00. Pt continues to get 25mcg fentanyl for pain today. Pt encouraged to mobilize in room as much as possible. Cardiac: Pt denies CP, SR 90's up to 140 with activity. Resp: Pt. denies SOB, weak cough slightly moist, spo2 mid 90s on RA. GI/: Pt denies N/V or abdominal pain at this time Neuro: Pt. A&Ox3,GAY general weakness is improving today
--- NOTE | 2016-07-31 21:20 | NUR ---
This RN was called by the patients nurse asking me to see if I can free any of the IJ catheter lumens to draw. I flushed each lumen with 30 ml of saline, during the flush i would attempt to withdraw blood without success. All the claves were changed after my attempt to make it work. I then advised the patients RN Marly of my attempts. Tuan Latham RN Addendum: 07/31/16 at 2125 by YENNY LATHAM RN all lumens flush with moderate pressure on the syringe. Tuan Latham
[2016-08-01] VITALS (8 sets, daily range): BP systolic 123–137; BP diastolic 75–81; PULSE 91–106; RESP 18–32; O2SAT 95–98
[2016-08-01] MEDS: Piperacillin-Tazo 3.375 Gm Inj 3.375 GM in Dextrose 5% Minibag Plus 50 ML IV SCH ×4 (00:29→23:46)
[2016-08-01] MEDS: fentaNYL-PF 50 mCg/mL 2 mL Inj IVPUSH PRN ×4 (00:29→16:06)
[2016-08-01] MEDS: Heparin 5,000 Unit/mL Inj SUBQ SCH ×4 (00:30→23:46)
--- NOTE | 2016-08-01 00:42 | NUR ---
TRANSFER FROM 2001 TO [facility] 3023 Pt arrived to [facility] Room 3023 approx 2350 via bed. Pts chart, belongings and medications w/ pt. Pt alert and oriented, passive. Pt arrived on . Pt states pain in back of neck, rates "8". Physical assessment performed. Triple IJ line patent, flushed, IV abx and prn IV pain medication administered. Call light in reach. Bed alarm on. Intentional rounding. Addendum: 08/01/16 at 0227 by JB BARKLEY RN Pt initially transferred w/ belongings bag, purse and pink bucket of pt supplies. Later when pts Room 2001 was being cleaned, more belongings were found. [place], wrist braces, mouthwash, and a silver colored ring w/ clear stones. Ring placed in specimen container and placed in pts purse in the closet.
--- NOTE | 2016-08-01 06:45 | NUR ---
PT ACTIVITY/PAIN Pt has remained in bed most of shift, since transferred to [facility]. Pt has been up to [facility] x 2 w/ 1 person SBA w/ FWW. Pt is generally weak, slow, but steady when up. Pt has had c/o intermittent pain in back of neck. Pt has rated pain at "7" and "8". PRN IV pain medication administered. Pt able to rest comfortably post medication administration. Repositioning also effective. Call light in reach. Bed alarm on. Intentional rounding.
[2016-08-01 07:24] LABS: BASOPHILS % (AUTO) 0.2 % (0-3); EOSINOPHILS % (AUTO) 1.9 % (0-5); MONOCYTES % (AUTO) 3.9 % (4-12); Mean Corpuscular Hemoglobin 31.3 pg (27.0-35.0); Mean Corpuscular Volume 94.2 fL (81-100); NEUTROPHILS % (AUTO) 85.4 % (40-74); Platelet Count 258 bil/L (150-400)
[2016-08-01] MEDS: Albuterol-Ipratropium 3 mL Inhalation Solution NEB SCH ×4 (08:04→21:05)
[2016-08-01] MEDS: Pantoprazole 40 mg ER24 Tablet PO SCH (08:19)
[2016-08-01] MEDS: Venlafaxine XR 75 mg ER24 Capsule PO SCH (08:19)
[2016-08-01] MEDS: Senna-Docusate 8.6-50 mg Tablet PO SCH (08:21)
--- NOTE | 2016-08-01 08:47 | NUR ---
Faxed referral to [facility] inpatient rehab and [facility] bed per [employer] DEVELOPER Addendum: 08/01/16 at 1336 by NAHEED LIRA CM Tamiko at [facility] is thinking patient is beyond needing inpatient rehab. Gave access and faxed facesheet to all locals [facility] for potential acceptance. Updated [employer] DEVELOPER
--- NOTE | 2016-08-01 12:36 | PROG NOTE ---
[address] [address] PROGRESS NOTE PATIENT: ALESSANDRA WOOTEN : 1960 MR#: [id number] ADMIT: 07/24/2016 JOB ID: [id number] DATE: 08/01/2016 REASON FOR FOLLOWUP: Maxillary sinusitis with aspiration pneumonia in a patient with polysubstance abuse. INTERVAL HISTORY: The patient reports she has continued to feel better. She denies fevers, chills, or sweats. No significant cough or shortness of breath is noted. Minimum to no abdominal pain is noted. No diarrhea. The patient reports no headache or sinus complaint. She is up and ambulating at times now. PHYSICAL EXAMINATION: Reveals a comfortable woman lying in bed. She has been afebrile for four days. Current temp 36.7, pulse 106, blood pressure 137/81. She is saturating well on room air and looks comfortable. Mental status seems clear. Sinuses entirely nontender. Oral cavity negative. Lungs quite clear bilaterally. No new abdominal tenderness. LABORATORIES: Labs include a white count slowly declining, still 18,000 with 85% segs. Creatinine 0.78. LFTs are actually worsening a bit over the past couple of days. Her AST has gone from 55 to 105 today, and her ALT has climbed from 45 to 68. Her alk phos has gone from 138 to 234. Albumin 2.8. Procalcitonin continues to slowly fall, yesterday 0.7, today 0.6. Hep C is negative. Micro studies include negative spinal fluid and nasopharyngeal PCR, as well as negative blood cultures, negative pneumococcal antigen, negative C. diff, and most recently negative urinalysis. The abdominal ultrasound that we ordered yesterday shows mildly prominent common bile duct at 9 mm as opposed to the normal of 8. No other notable abnormalities on the ultrasound. IMPRESSION: This is a complex patient with polysubstance abuse who was intubated in the intensive care unit. During her intensive care unit stay, it was discovered she had a right maxillary sinusitis in association with what was probably an aspiration pneumonia. She is now extubated and doing much better, but we continue to be worried about her persistent leukocytosis and her very slow fall in procalcitonin. I also note that her liver function tests are going up, but it now seems to have a bit of a cholestatic pattern. I wonder if this could be due to medications or whether it is related in some way to her alcoholic liver disease. RECOMMENDATIONS: 1. I would continue with the Zosyn at least through August 03 to complete a 10 day course. 2. Repeat procalcitonin should be checked either tomorrow the or on the . 3. We will need to continue to trend her liver function tests, and if she develops more of a cholestatic picture, more investigations may be warranted.
[2016-08-01] MEDS: Thiamine Inj 200 MG in Dextrose 5% 50 ML IV SCH (12:47)
--- NOTE | 2016-08-01 15:54 | NUR ---
NUTRITION FOLLOW-UP: Assess: 56 YO F admitted to CCU with ARDS, bilateral aspiration pneumonia, septic shock, acute kidney injury, hyperkalemia, encephalopathy, multiple drug abuse, including heroin, methadone, gabapentin, and alcohol. Pt was extubated on 07/28. Pt is now on a soft diet with supplements eating 25-50% of most meals. PMHX: HTN, depression, anxiety, chronic pain, degenerative disc disease. DIET: Soft, Ensure (not strawberry) all trays. Po 25-50% LABS: Reviewed. Ca 10.6, AST 105, ALT 68, Alk Phos 234, Alb 2.8, lipase 204. MEDICATIONS: Reviewed. GI: BM x 3 (07/31) ANTHROPOMETRICS: Wt: 81 kg. Admit wt: 82.1 kg. ESTIMATED NEEDS: Calories: 1640-1623 kcal/day (25-30 kcal/kg BW) Protein: 80-120 g/day (1.0-1.5 g/kg BW) NUTRITION DIAGNOSIS: 1) Inadequate oral intake related to decreased ability to consume sufficient energy as evidenced by PO intake of 25-50%--PERSISTS. 2) Chewing / swallowing difficulties related to recent intubation, as evidenced by requirement for modified diet texture, per ST order--RESOLVED, PT NOW ON SOFT DIET. INTERVENTION: 1) Continue to send Ensure on all trays. MONITOR/EVALUATE: PO intake, labs, GI, nutrition status. Follow per moderate nutrition risk guidelines.
--- NOTE | 2016-08-01 15:57 | NUR ---
Social Work-readiness for discharge: Data:EMR reviewed. Pt is on day 8 of hospitalization for acute renal failure H&P. Pt is not medically stable for discharge at this time, anticipate 2 more days. SHRAVAN was updated by UR specialist that pt has been denied by inpt rehab because she is too high functioning. During PT session today, pt ambulated 50ft and did 10 steps, continuing to recommend SNF. SW followed up with pt at bedside, SW role explained. Pt states she wants to return home instead of going to SNF. SW informed pt that HH would not be an option due to moving to [place], pt agreeable to outpt services. SW placed a call to Lukasz to discuss. Lukasz states he was here during PT and feels comfortable with having pt return home, even though recommendation is SNF. Lukasz states he works nights and will be home during the day. Lukasz states he feels like the pt is doing really well. SW explained Walker could be obtained for home use for pt. SW explained to that HH will not be able to go to home in [place], agreeable to outpt services. states he will provide transport home at discharge. SW provided update to UR Specialist and explained about F[facility]. SW placed RX in folder for MD to sign. SW will continue to follow. Assessment: Pt who will return home. Plan:Anticipate pt to return home when medically stable. Pt is declining SNF. Pt is ambulating 50ft and completed 10 stairs. is agreeable for pt to return home Pt will need to do outpt therapy due to HH not going to home in [place]. SW to obtain [facility] for pt prior to discharge. SW placed RX in folder for MD to sign. SW will continue to follow. EVERT Hartman
--- NOTE | 2016-08-01 17:18 | PCM.PNMED ---
Subjective Date of Service Aug 01, 2016 Subjective complains of right sided neck pain due to her recent fall. denies any other new issues/complaints Exam Vital Signs Vital Sign - Last Date Time Temp Pulse Resp B/P Pulse Ox O2 Delivery O2 Flow Rate FiO2 08/01/16 16:09 91 18 98 Room Air 08/01/16 13:31 37.1 123/75 07/29/16 11:55 2.00 07/28/16 16:37 40 Intake and Output 07/31/16 07/31/16 08/01/16 Cumulative From/Thru 15:00 23:00 07:00 07/24/16 09:02 - 08/01/16 05:27 Intake Total 120 ml 72 ml 70799 ml Output Total 67739 ml Balance 120 ml 72 ml 04336 ml Intake Oral 900 ml IV Total 120 ml 72 ml 59916 ml Tube Irrigant 60 ml Output Urine Total 27036 ml Stool Total 590 ml Urine/Stool Mix 12 ml Gastric Drainage Total 275 ml # Voids 5 # Bowel Movements 20 Exam General: NAD Eyes: sclera anicteric HENT: atraumatic, normocephalic, Mucus membranes moist Neck: supple with full ROM Cardiac: Regular rate and regular rhythm Lungs: Clear to auscultation bilaterally Abdomen: Nontender, non-distended, normoactive bowel tones, soft : no pierre in place Extremities: Pulses intact at radial and dorsalis pedis bilaterally, No cyanosis , clubbing or edema Neurologic: cranial nerves II through XII generally intact, patient follows commands able to move hands and feet. speech intact MSK: Strength intact bilaterally in UE Psychiatric: somewhat flat affect IVs and Medications Medications Reviewed: Medications were reviewed in detail Lab and Diagnostics Result Diagram: 08/01/1662908/01/16 0630 X-Rays, CTs and MRIs PROCEDURE: CT ABDOMEN AND PELVIS WITHOUT CONTRAST IMPRESSION: 1. Severe bilateral lower lobe pneumonia. 2. Distended distal small bowel loops, suggestive of gastroenteritis. 3. Thickening of the transverse, descending, and sigmoid colon, with differential considerations including ischemia, infection, and inflammation. 4. Fecal impaction within the rectum. 5. Proctitis. 6. Normal appendix. 7. Findings suggestive of pancreatitis; recommend correlation with laboratory testing. 8. Nonobstructing left nephrolith. 9. Moderately distended gallbladder. If there is clinical evidence for cholecystitis, ultrasound is recommended for further assessment. Dictated by: Ambreen Patel M.D. on 07/24/2016 at 11:04 PROCEDURE: CT BRAIN WITHOUT CONTRAST IMPRESSION: 1. No acute intracranial disease process. 2. Complete opacification of the right maxillary sinus which could be inflammatory or neoplastic. Dictated by: Sheyla Chinchilla MD, PhD on 07/24/2016 at 9:18 PROCEDURE: X-RAY CHEST ONE VIEW, PORTABLE IMPRESSION: Suspect bilateral lower lobe pneumonia. Dictated by: Ana Cristina Manjarrez M.D. on 07/24/2016 at 11:00 PROCEDURE: MRI BRAIN WITHOUT CONTRAST ([id number]) IMPRESSION: Severe right maxillary sinus disease otherwise unremarkable examination as above. Dictated by: Kendrick Moran M.D. on 07/26/2016 at 18:26 PROCEDURE: X-RAY CHEST ONE VIEW, PORTABLE ([id number]) IMPRESSION: 1. Improved aeration in the left lung base with probable bibasilar residual atelectasis. Dictated by: James Bales M.D. on 07/29/2016 at 11:55 Cardiac Echo Impressions Echocardiogram Report Interpretation Summary The patient was in sinus tachycardia with heart rates between 123-127 bpm during the exam. The left ventricle is normal in size. The ejection fraction is estimated to be 65-70%. The right ventricle is normal in size and function. There is mild mitral regurgitation. There is a moderate left-sided pleural effusion. No obvious valvular vegetation seen. However if clinical suspicion for endocarditis is high, consider SOPHIE. Reading Physician:AM Additional Diagnostics EEG IMPRESSION: This EEG performed in the lethargic state is abnormal. The diffuse polymorphic slowing principally high amplitude delta and, at times, appearing triphasic-like, is suggestive of moderate cerebral cortical dysfunction/encephalopathy. This is nonspecific and may be seen in a wide variety of different clinical conditions, including toxic, metabolic, hypoxic, inflammatory, autoimmune, and infectious states. It may also be seen in the setting of sedative agents. There were no focal, lateralized, or epileptiform discharges noted. There were no seizures seen. If clinically indicated, I do recommend a repeat electroencephalogram if the patient is noted to become more alert or if there are any other new neurologic changes. Clinical correlation is advised. Ken Awan MD 07/26/162058 US ABDOMEN ([id number]) IMPRESSION: 1. Common bile duct prominent measuring 9 mm. Recommend clinical correlation with LFTs. 2. Subcentimeter nonobstructing left renal calcification. 3. Iliac arteries not well seen. Dictated by: Tex Jean RRA Interpreted: Eri Ansari MD on 07/31/2016 at 16: 51 Transcribed by: CALLI on 07/31/2016 at 16:53 Assessment & Plan 56 year old female with a history of HTN, anxiety and osteoarthritis with chronic narcotic use presented to [facility] on 07/24/16 via EMS with altered mental status. Found to have hyperkalemia, pneumonia and an significant kidney injury. Admitted for management of her numerous co-existing conditions to the ICU # Acute severe sepsis, present on admission, resolved - Criteria met at admission: tachycardia (105), fever (38.2), considered possible respiratory and possibly GI source - Norepinephrine ordered but never required for pressor support. - No cultures have ever returned positive, however imaging studies show maxillary sinusitis, and patient continues to have increasing leukocytosis - Blood cultures, stool PCR for C. difficile, urine cultures all reorder on and negative - Patient is currently on Zosyn for severe maxillary sinusitis seen in multiple imaging studies - appreciate ID consult. will f/u w/ recs # Possible acute blood loss anemia, not present on admission, under evaluation - Patient had been hematologically stable for several days but had a drop of hemoglobin from 10.4-8.1 on 07/31/2016 - No reports of dark tarry stool or hemoglobinuria - Repeat H&H seems stable. - f/u # Metabolic and toxic encephalopathy, acute, present on admission, improving. - Concern for toxic ingestion as patient has a history of heroin use, gabapentin misuse. - Urine tox in the ED positive for meth and heroin. - Mentally clearing slowly. - c/w supportive care # Possible Bilateral pneumonia, acute, present on admission, improved. - O2 supplementation to keep O2 saturations 92-96%. - DuoNeb available QID. Albuterol neb available Q2 PRN. - Continue Zosyn as noted above # Pancreatitis, acute, present on admission. clinically appears resolved. - Continue to monitor lipase and patient symptoms. - Diet being increased per speech therapy. # Anion gap metabolic acidosis, acute, present on admission, resolved. - Secondary to sepsis, RAHDA. 7. Hyperkalemia, acute, present on admission. Resolved - Likely secondary to significant RADHA. - Will continue to monitor BMP and correct as needed. # Elevated transaminases, acute, present on admission. ongoing - Uncertain etiology, possibly shock liver. Hepatitis negative. - Abdominal ultrasound shows mildly dilated common bile duct without stone blockage - Continue to monitor CMP and if persisting or rising will consider further GI consult # Rhabdomyolysis, acute, present on admission. Resolved - Patient has essentially been in bed 48-72 hours prior to admission with fall on Sunday in the shower. - Sufficient fluid resuscitation done this admission. - CPK normalized 07/30/16. # Hypertension, chronic, presume stable. - Home regimen includes clonidine 0.3 mg TID and triamterene-HCTZ 37.5/25 mg daily. - c/w triamterene-HCTZ. # Depression with anxiety, chronic, presume stable. - c/w venlafaxine 75 mg daily. # Chronic pain syndrome with opiate dependence, presume stable. - History of opiate habituation. Was being tapered down per office notes from Dr. Eli. - Will try to avoid opiates during this admission (if it can be avoided) - Could consider use of Tylenol but due to elevated transaminases would give less than 2 grams daily. # Alcohol use disorder, chronic, stable - Reported to ingest at least a bottle of wine daily. - Monitor closely for signs of withdrawal and will initiate CIWA if needed. - Supplement Thiamine daily. # Thyroid nodules, chronic, presume stable. - Recommend continued outpatient follow up. # Primary Respiratory alkalosis, not present at admission, resolved. - Patient was overbreathing on mechanical ventilation. Extubated on 2016. Currently doing well. # Acute kidney injury, present on admission. resolved. - Presumed secondary to rhabdomyolysis and poor PO intake prior to admission. - Patient received sufficient IV fluids. - Continue to monitor BMP. Disposition: 2-4 days GI Prophylaxis: Proton Pump Inhibitor VTE Prophylaxis: Sub-Q Heparin (Unfractionated), SCDs VTE Mechanical Devices: Intermittant Pneumatic CD Resuscitation Status: CPR: Attempt Resuscitation Time spent 40 min Glen Garcia Aug 01, 2016 17:18
--- NOTE | 2016-08-01 18:15 | NUR ---
Pain Pt c/o of pain in Neck and abdomen 8/10 pain, gave PRN Fentaynl x 2, with good relief 3/10 pain. Pt currently resting with call light within reach, bed low and locked, intentional rounding.
[2016-08-02 04:53] VITALS: BP 133/83; PULSE 89; RESP 22; O2SAT 98
[2016-08-02] MEDS: Albuterol-Ipratropium 3 mL Inhalation Solution NEB SCH ×3 (07:24→16:19)
[2016-08-02 07:27] VITALS: PULSE 93; RESP 18; O2SAT 96
[2016-08-02] MEDS: Piperacillin-Tazo 3.375 Gm Inj 3.375 GM in Dextrose 5% Minibag Plus 50 ML IV SCH ×2 (07:44→17:01)
[2016-08-02] MEDS: Pantoprazole 40 mg ER24 Tablet PO SCH (07:45)
[2016-08-02] MEDS: Heparin 5,000 Unit/mL Inj SUBQ SCH ×2 (07:45→17:01)
[2016-08-02] MEDS: Venlafaxine XR 75 mg ER24 Capsule PO SCH (07:46)
[2016-08-02] MEDS: Senna-Docusate 8.6-50 mg Tablet PO SCH (07:52)
[2016-08-02 08:26] LABS: BASOPHILS % (AUTO) 0.2 % (0-3); EOSINOPHILS % (AUTO) 1.5 % (0-5); MONOCYTES % (AUTO) 4.2 % (4-12); Mean Corpuscular Hemoglobin 31.5 pg (27.0-35.0); Mean Corpuscular Volume 95.3 fL (81-100); Platelet Count 422 bil/L (150-400)
[2016-08-02] MEDS: Thiamine Inj 200 MG in Dextrose 5% 50 ML IV SCH (09:17)
--- NOTE | 2016-08-02 11:18 | PROG NOTE ---
[address] [address] PROGRESS NOTE PATIENT: ALESSANDRA WOOTEN : 1960 MR#: [id number] ADMIT: 07/24/2016 JOB ID: [id number] DATE: 08/02/2016 REASON FOR FOLLOWUP: Complex patient with sinusitis, aspiration pneumonia, pancreatitis, and polysubstance abuse. INTERVAL HISTORY: The patient states she is gradually feeling better and better. She has no overt fevers or chills. She denies headache or sinus pain. She states she has no significant cough or chest pain. She does note she has some bilateral flank pain, left greater than right. She also has some chronic pain in her feet. No nausea or vomiting. No abdominal pain per se. PHYSICAL EXAMINATION: Reveals an afebrile woman. Temp 36.7, pulse 93, respiratory rate 18, blood pressure 133/83. She is saturating well on room air. No acute distress. Very flat affect but does not appear overtly depressed anyway. Mental status clear. Oral cavity without thrush. Lungs relatively clear bilaterally at this point. Cardiac tones without murmur. Abdomen soft and nontender. No skin rash. LABORATORIES: Labs include a white count which continues to be very consistently around 20,000. Today it is 22,000. Hematocrit 30, platelet count 422. Creatinine 0.77. Calcium is elevated at 11.3, and I am not certain why. Bilirubin is normal. AST down to 77, and that 77 is quite low for her. ALT 71 which is up a little bit from 68 yesterday. Procalcitonin continues its slow decline. It is down to 0.58. Lipase is at 150, still elevated but improving again. Hepatitis serologies and HIV are negative. Micro studies include a C. difficile, which was ordered this morning, as she has had a couple loose stools. Urine culture negative. Blood cultures negative. Recent C. diff was negative. IMAGING: Includes an abdominal ultrasound done two days ago which shows a slightly dilated common bile duct, otherwise normal. IMPRESSION: This is a complex patient with polysubstance abuse who was initially intubated in the unit. While she was in the unit, it was felt she had an aspiration pneumonia, and a CT showed sinusitis. She is now extubated and on the floor and doing much better, but it remains unclear why she has such as significant and persistence leukocytosis. She still has mild increase in LFTs which may be residual from alcoholic hepatitis. She also still has a mildly elevated lipase which is undoubtedly due to pancreatitis, but that seems to be improving. Why her white count is still elevated remains unclear to me at this time. RECOMMENDATIONS: 1. Will continue Zosyn through tomorrow to complete 10 days of therapy. 2. I would repeat a procalcitonin again tomorrow morning and see if we still have a downward trend. 3. Will closely follow her LFTs and lipase.
[2016-08-02 11:33] VITALS: PULSE 89; RESP 18; O2SAT 96
[2016-08-02 13:14] VITALS: BP 142/84; PULSE 76; RESP 24; O2SAT 97
--- NOTE | 2016-08-02 15:38 | PCM.PNMED ---
Subjective Date of Service Aug 02, 2016 Subjective denies any other new issues/complaints Exam Vital Signs Vital Sign - Last Date Time Temp Pulse Resp B/P Pulse Ox O2 Delivery O2 Flow Rate FiO2 08/02/16 13:14 36.9 76 24 142/84 97 Room Air 07/29/16 11:55 2.00 07/28/16 16:37 40 Intake and Output 08/01/16 08/01/16 08/02/16 Cumulative From/Thru 15:00 23:00 07:00 07/24/16 09:02 - 08/02/16 06:31 Intake Total 0 ml 913 ml 200 ml 20870 ml Output Total 1450 ml 825 ml 350 ml 21227 ml Balance -1450 ml 88 ml -150 ml 8551 ml Intake Oral 0 ml 737 ml 200 ml 1837 ml IV Total 156 ml 74538 ml Tube Irrigant 20 ml 80 ml Output Urine Total 1250 ml 825 ml 350 ml 00861 ml Stool Total 200 ml 790 ml Urine/Stool Mix 12 ml Gastric Drainage Total 275 ml # Voids 5 # Bowel Movements 3 28 Exam General: NAD Eyes: sclera anicteric HENT: atraumatic, normocephalic, Mucus membranes moist Neck: supple with full ROM Cardiac: Regular rate and regular rhythm Lungs: Clear to auscultation bilaterally Abdomen: Nontender, non-distended, normoactive bowel tones, soft : no pierre in place Extremities: Pulses intact at radial and dorsalis pedis bilaterally, No cyanosis , clubbing or edema Neurologic: cranial nerves II through XII generally intact, patient follows commands able to move hands and feet. speech intact MSK: Strength intact bilaterally in UE Psychiatric: appropriate IVs and Medications Medications Reviewed: Medications were reviewed in detail Lab and Diagnostics Result Diagram: 08/02/1671908/02/16719 X-Rays, CTs and MRIs PROCEDURE: CT ABDOMEN AND PELVIS WITHOUT CONTRAST IMPRESSION: 1. Severe bilateral lower lobe pneumonia. 2. Distended distal small bowel loops, suggestive of gastroenteritis. 3. Thickening of the transverse, descending, and sigmoid colon, with differential considerations including ischemia, infection, and inflammation. 4. Fecal impaction within the rectum. 5. Proctitis. 6. Normal appendix. 7. Findings suggestive of pancreatitis; recommend correlation with laboratory testing. 8. Nonobstructing left nephrolith. 9. Moderately distended gallbladder. If there is clinical evidence for cholecystitis, ultrasound is recommended for further assessment. Dictated by: Ambreen Patel M.D. on 07/24/2016 at 11:04 PROCEDURE: CT BRAIN WITHOUT CONTRAST IMPRESSION: 1. No acute intracranial disease process. 2. Complete opacification of the right maxillary sinus which could be inflammatory or neoplastic. Dictated by: Sheyla Chinchilla MD, PhD on 07/24/2016 at 9:18 PROCEDURE: X-RAY CHEST ONE VIEW, PORTABLE IMPRESSION: Suspect bilateral lower lobe pneumonia. Dictated by: Ana Cristina Manjarrez M.D. on 07/24/2016 at 11:00 PROCEDURE: MRI BRAIN WITHOUT CONTRAST ([id number]) IMPRESSION: Severe right maxillary sinus disease otherwise unremarkable examination as above. Dictated by: Kendrick Moran M.D. on 07/26/2016 at 18:26 PROCEDURE: X-RAY CHEST ONE VIEW, PORTABLE ([id number]) IMPRESSION: 1. Improved aeration in the left lung base with probable bibasilar residual atelectasis. Dictated by: James Bales M.D. on 07/29/2016 at 11:55 Cardiac Echo Impressions Echocardiogram Report Interpretation Summary The patient was in sinus tachycardia with heart rates between 123-127 bpm during the exam. The left ventricle is normal in size. The ejection fraction is estimated to be 65-70%. The right ventricle is normal in size and function. There is mild mitral regurgitation. There is a moderate left-sided pleural effusion. No obvious valvular vegetation seen. However if clinical suspicion for endocarditis is high, consider SOPHIE. Reading Physician:AM Additional Diagnostics EEG IMPRESSION: This EEG performed in the lethargic state is abnormal. The diffuse polymorphic slowing principally high amplitude delta and, at times, appearing triphasic-like, is suggestive of moderate cerebral cortical dysfunction/encephalopathy. This is nonspecific and may be seen in a wide variety of different clinical conditions, including toxic, metabolic, hypoxic, inflammatory, autoimmune, and infectious states. It may also be seen in the setting of sedative agents. There were no focal, lateralized, or epileptiform discharges noted. There were no seizures seen. If clinically indicated, I do recommend a repeat electroencephalogram if the patient is noted to become more alert or if there are any other new neurologic changes. Clinical correlation is advised. Ken Awan MD 07/26/162058 US ABDOMEN ([id number]) IMPRESSION: 1. Common bile duct prominent measuring 9 mm. Recommend clinical correlation with LFTs. 2. Subcentimeter nonobstructing left renal calcification. 3. Iliac arteries not well seen. Dictated by: Tex Jean RRA Interpreted: Eri Ansari MD on 07/31/2016 at 16: 51 Transcribed by: CALLI on 07/31/2016 at 16:53 Assessment & Plan 56 year old female with a history of HTN, anxiety and osteoarthritis with chronic narcotic use presented to [facility] on 07/24/16 via EMS with altered mental status. Found to have hyperkalemia, pneumonia and an significant kidney injury. Admitted for management of her numerous co-existing conditions to the ICU # Acute severe sepsis, present on admission, resolved - Criteria met at admission: tachycardia (105), fever (38.2), considered possible respiratory and possibly GI source - Norepinephrine ordered but never required for pressor support. - No cultures have ever returned positive, however imaging studies show maxillary sinusitis, and patient continues to have increasing leukocytosis - Blood cultures, stool PCR for C. difficile, urine cultures all reorder on and negative - Patient is currently on Zosyn for severe maxillary sinusitis seen in multiple imaging studies - appreciate ID consult. will f/u w/ recs # Significant leukocytosis. acute. poa. persisting - f/u # Possible acute blood loss anemia, not present on admission, under evaluation - Patient had been hematologically stable for several days but had a drop of hemoglobin from 10.4-8.1 on 07/31/2016 - No reports of dark tarry stool or hemoglobinuria - Repeat H&H seems stable. - f/u # Metabolic and toxic encephalopathy, acute, present on admission, Resolved. - Concern for toxic ingestion as patient has a history of heroin use, gabapentin misuse. - Urine tox in the ED positive for meth and heroin. - c/w supportive care # Possible Bilateral pneumonia, acute, present on admission, improved. - O2 supplementation to keep O2 saturations 92-96%. - DuoNeb available QID. Albuterol neb available Q2 PRN. - Continue Zosyn as noted above # Pancreatitis, acute, present on admission. clinically appears resolved. - Continue to monitor lipase and patient symptoms. - Diet being increased per speech therapy. # Anion gap metabolic acidosis, acute, present on admission, resolved. - Secondary to sepsis, RADHA. 7. Hyperkalemia, acute, present on admission. Resolved - Likely secondary to significant RADHA. - Will continue to monitor BMP and correct as needed. # Elevated transaminases, acute, present on admission. ongoing - Uncertain etiology, possibly shock liver. Hepatitis negative. - Abdominal ultrasound shows mildly dilated common bile duct without stone blockage - Continue to monitor CMP and if rising will consider further GI consult # Rhabdomyolysis, acute, present on admission. Resolved - Patient has essentially been in bed 48-72 hours prior to admission with fall on Sunday in the shower. - Sufficient fluid resuscitation done this admission. - CPK normalized 07/30/16. # Hypertension, chronic, presume stable. - Home regimen includes clonidine 0.3 mg TID and triamterene-HCTZ 37.5/25 mg daily. - c/w triamterene-HCTZ. # Depression with anxiety, chronic, presume stable. - c/w venlafaxine 75 mg daily. # Chronic pain syndrome with opiate dependence, presume stable. - History of opiate habituation. Was being tapered down per office notes from Dr. Eli. - Will try to avoid opiates during this admission (if it can be avoided) - Could consider use of Tylenol but due to elevated transaminases would give less than 2 grams daily. # Alcohol use disorder, chronic, stable - Reported to ingest at least a bottle of wine daily. - Monitor closely for signs of withdrawal and will initiate CIWA if needed. - Supplement Thiamine daily. # Thyroid nodules, chronic, presume stable. - Recommend continued outpatient follow up. # Primary Respiratory alkalosis, not present at admission, resolved. - Patient was overbreathing on mechanical ventilation. Extubated on 2016. Currently doing well. # Acute kidney injury, present on admission. resolved. - Presumed secondary to rhabdomyolysis and poor PO intake prior to admission. - Patient received sufficient IV fluids. - Continue to monitor BMP. Disposition: 1-2 days GI Prophylaxis: Proton Pump Inhibitor VTE Prophylaxis: Sub-Q Heparin (Unfractionated), SCDs VTE Mechanical Devices: Intermittant Pneumatic CD Resuscitation Status: CPR: Attempt Resuscitation Glen Garcia Aug 02, 2016 15:38
[2016-08-02 16:20] VITALS: PULSE 90; RESP 18; O2SAT 96
[2016-08-02 20:22] VITALS: BP 116/73; PULSE 96; RESP 20; O2SAT 98
[2016-08-03] VITALS (7 sets, daily range): BP systolic 110–120; BP diastolic 76–86; PULSE 92–116; RESP 18–20; O2SAT 94–100
[2016-08-03] MEDS: Heparin 5,000 Unit/mL Inj SUBQ SCH ×4 (00:25→23:57)
[2016-08-03] MEDS: Piperacillin-Tazo 3.375 Gm Inj 3.375 GM in Dextrose 5% Minibag Plus 50 ML IV SCH ×3 (00:26→16:14)
--- NOTE | 2016-08-03 03:18 | NUR ---
pain Pt requested tylenol for 7/10 neck pain with good relief. Pt slept intermittently this shift. ambulating independently to and from the bathroom. A&Ox3. VSS, afebrile. Zosyn infusing per order.
[2016-08-03 06:04] LABS: BASOPHILS % (AUTO) 0.2 % (0-3); Mean Corpuscular Volume 94.9 fL (81-100); NEUTROPHILS % (AUTO) 82.6 % (40-74); Platelet Count 550 bil/L (150-400)
[2016-08-03] MEDS: Albuterol-Ipratropium 3 mL Inhalation Solution NEB SCH ×4 (07:29→19:53)
[2016-08-03] MEDS: Senna-Docusate 8.6-50 mg Tablet PO SCH (08:30)
[2016-08-03] MEDS: Pantoprazole 40 mg ER24 Tablet PO SCH (08:59)
[2016-08-03] MEDS: Venlafaxine XR 75 mg ER24 Capsule PO SCH (09:00)
[2016-08-03] MEDS: Thiamine Inj 200 MG in Dextrose 5% 50 ML IV SCH (09:02)
--- NOTE | 2016-08-03 10:48 | PROG NOTE ---
[address] [address] PROGRESS NOTE PATIENT: ALESSANDRA WOOTEN : 1960 MR#: [id number] ADMIT: 07/24/2016 JOB ID: [id number] DATE: 08/03/2016 INFECTIOUS DISEASE FOLLOW UP NOTE: REASON FOR FOLLOW UP: Leukocytosis, aspiration pneumonia, sinusitis, pancreatitis and polysubstance abuse. INTERVAL HISTORY: The patient continues to complain of diarrhea which occurs several times a day and is liquid. She does not have abdominal pain, nausea or vomiting, however. She denies significant shortness of breath, fevers, chills or rash. PHYSICAL EXAMINATION: Reveals an afebrile woman. Temperature 36.8, pulse ranging from 75-115. Respiratory rate in the 10s. Blood pressure 120/86. She is saturating well on room air. No acute distress. No skin rashes noted. The patient's mentation seems to be steadily improving. She now carries on a conversation without difficulty but continues to have a very flat affect. Oral cavity negative. Lungs clear. Abdomen soft and nontender. No edema in the extremities. No skin rash. LABORATORIES: White count remains elevated at 17,550,000 platelets, 82% neutrophils. Creatinine is 0.89. LFTs are slightly better than before. AST down to 58, ALT down to 63, alk phos 225. Procalcitonin is 0.36. Urinalysis unremarkable. No new serologies are available. The micro studies remain negative. We now have two recent PCRs and no more should be ordered as the likelihood of finding a positive approach is zero. Recent blood cultures, urine cultures also negative. The recent abdominal ultrasound that we had ordered on the shows slightly increased common bile duct, otherwise negative. IMPRESSION: This is a very complicated case of a woman with polysubstance abuse, pancreatitis, respiratory failure, aspiration pneumonia and maxillary sinusitis. She is improving day by day. The main concerns today are persistent leukocytosis which probably does not represent infection but may be secondary to underlying pancreatitis or her cholestatic hepatitis. The other question is the cholestatic hepatitis itself. This is conceivably due to her Zosyn antibiotic though that would be a very unusual reaction. It could also be due to other medications or it could reflect true gallbladder pathology. RECOMMENDATIONS: 1. Will continue the Zosyn through this evening to complete 10 days of therapy and then stop. 2. I would continue to check procalcitonins and LFTs on a daily basis at least in the short term. 3. If the patient's LFTs continue to climb or fail to improve, I think it would be reasonable to consider additional imaging of the right upper quadrant including possibly a HIDA scan. 4. This case discussed in person with Dr. Garcia.
--- NOTE | 2016-08-03 14:53 | PCM.PNMED ---
Subjective Date of Service Aug 03, 2016 Subjective denies any other new issues/complaints Exam Vital Signs Vital Sign - Last Date Time Temp Pulse Resp B/P Pulse Ox O2 Delivery O2 Flow Rate FiO2 08/03/16 11:20 99 18 98 Room Air 08/03/16 08:03 36.8 120/86 07/29/16 11:55 2.00 07/28/16 16:37 40 Intake and Output 08/02/16 08/02/16 08/03/16 Cumulative From/Thru 15:00 23:00 07:00 07/24/16 09:02 - 08/03/16 06:39 Intake Total 894 ml 350 ml 95866 ml Output Total 200 ml 300 ml 06355 ml Balance 694 ml 50 ml 9295 ml Intake Oral 586 ml 350 ml 2773 ml IV Total 308 ml 26789 ml Tube Irrigant 80 ml Output Urine Total 300 ml 23419 ml Stool Total 200 ml 990 ml Urine/Stool Mix 12 ml Gastric Drainage Total 275 ml # Voids 4 9 # Bowel Movements 5 3 36 Exam General: NAD Eyes: sclera anicteric HENT: atraumatic, normocephalic, Mucus membranes moist Neck: supple with full ROM Cardiac: Regular rate and regular rhythm Lungs: Clear to auscultation bilaterally Abdomen: Nontender, non-distended, normoactive bowel tones, soft Extremities: Pulses intact at radial and dorsalis pedis bilaterally, No cyanosis , clubbing or edema Neurologic: patient follows commands able to move hands and feet. speech intact MSK: Strength intact bilaterally in UE Psychiatric: appropriate IVs and Medications Medications Reviewed: Medications were reviewed in detail Lab and Diagnostics Result Diagram: 08/03/16 0545 08/03/16 0545 X-Rays, CTs and MRIs PROCEDURE: CT ABDOMEN AND PELVIS WITHOUT CONTRAST IMPRESSION: 1. Severe bilateral lower lobe pneumonia. 2. Distended distal small bowel loops, suggestive of gastroenteritis. 3. Thickening of the transverse, descending, and sigmoid colon, with differential considerations including ischemia, infection, and inflammation. 4. Fecal impaction within the rectum. 5. Proctitis. 6. Normal appendix. 7. Findings suggestive of pancreatitis; recommend correlation with laboratory testing. 8. Nonobstructing left nephrolith. 9. Moderately distended gallbladder. If there is clinical evidence for cholecystitis, ultrasound is recommended for further assessment. Dictated by: Ambreen Patel M.D. on 07/24/2016 at 11:04 PROCEDURE: CT BRAIN WITHOUT CONTRAST IMPRESSION: 1. No acute intracranial disease process. 2. Complete opacification of the right maxillary sinus which could be inflammatory or neoplastic. Dictated by: Sheyla Chinchilla MD, PhD on 07/24/2016 at 9:18 PROCEDURE: X-RAY CHEST ONE VIEW, PORTABLE IMPRESSION: Suspect bilateral lower lobe pneumonia. Dictated by: Ana Cristina Manjarrez M.D. on 07/24/2016 at 11:00 PROCEDURE: MRI BRAIN WITHOUT CONTRAST ([id number]) IMPRESSION: Severe right maxillary sinus disease otherwise unremarkable examination as above. Dictated by: Kendrick Moran M.D. on 07/26/2016 at 18:26 PROCEDURE: X-RAY CHEST ONE VIEW, PORTABLE ([id number]) IMPRESSION: 1. Improved aeration in the left lung base with probable bibasilar residual atelectasis. Dictated by: James Bales M.D. on 07/29/2016 at 11:55 Cardiac Echo Impressions Echocardiogram Report Interpretation Summary The patient was in sinus tachycardia with heart rates between 123-127 bpm during the exam. The left ventricle is normal in size. The ejection fraction is estimated to be 65-70%. The right ventricle is normal in size and function. There is mild mitral regurgitation. There is a moderate left-sided pleural effusion. No obvious valvular vegetation seen. However if clinical suspicion for endocarditis is high, consider SOPHIE. Reading Physician:AM Additional Diagnostics EEG IMPRESSION: This EEG performed in the lethargic state is abnormal. The diffuse polymorphic slowing principally high amplitude delta and, at times, appearing triphasic-like, is suggestive of moderate cerebral cortical dysfunction/encephalopathy. This is nonspecific and may be seen in a wide variety of different clinical conditions, including toxic, metabolic, hypoxic, inflammatory, autoimmune, and infectious states. It may also be seen in the setting of sedative agents. There were no focal, lateralized, or epileptiform discharges noted. There were no seizures seen. If clinically indicated, I do recommend a repeat electroencephalogram if the patient is noted to become more alert or if there are any other new neurologic changes. Clinical correlation is advised. Ken Awan MD 07/26/162058 US ABDOMEN ([id number]) IMPRESSION: 1. Common bile duct prominent measuring 9 mm. Recommend clinical correlation with LFTs. 2. Subcentimeter nonobstructing left renal calcification. 3. Iliac arteries not well seen. Dictated by: Tex Jean RRA Interpreted: Eri Ansari MD on 07/31/2016 at 16: 51 Transcribed by: CALLI on 07/31/2016 at 16:53 Assessment & Plan 56 year old female with a history of HTN, anxiety and osteoarthritis with chronic narcotic use presented to [facility] on 07/24/16 via EMS with altered mental status. Found to have hyperkalemia, pneumonia and an significant kidney injury. Admitted for management of her numerous co-existing conditions to the ICU # Acute severe sepsis, present on admission, resolved - Criteria met at admission: tachycardia (105), fever (38.2), considered possible respiratory and possibly GI source - Norepinephrine ordered but never required for pressor support. - No cultures have ever returned positive, however imaging studies show maxillary sinusitis, and patient continues to have increasing leukocytosis - Blood cultures, stool PCR for C. difficile, urine cultures all reorder on and negative - Finishing 10 day course of Zosyn today for severe maxillary sinusitis seen in multiple imaging studies - appreciate ID consult. will f/u w/ recs # Significant leukocytosis. acute. poa. improving - f/u # Elevated transaminases, acute, present on admission. ongoing but improving - Uncertain etiology, possibly shock liver. Hepatitis negative. - Abdominal ultrasound shows mildly dilated common bile duct without stone blockage - Continue to monitor CMP and if rising will consider further GI consult # Possible acute blood loss anemia, not present on admission, under evaluation - Patient had been hematologically stable for several days but had a drop of hemoglobin from 10.4-8.1 on 07/31/2016 - No reports of dark tarry stool or hemoglobinuria - Repeat H&H seems stable. - f/u # Metabolic and toxic encephalopathy, acute, present on admission, Resolved. - Concern for toxic ingestion as patient has a history of heroin use, gabapentin misuse. - Urine tox in the ED positive for meth and heroin. - c/w supportive care # Possible Bilateral pneumonia, acute, present on admission, improved. - O2 supplementation to keep O2 saturations 92-96%. - DuoNeb available QID. Albuterol neb available Q2 PRN. - Continue Zosyn as noted above # Pancreatitis, acute, present on admission. clinically appears resolved. - Continue to monitor lipase and patient symptoms. - Diet being increased per speech therapy. # Anion gap metabolic acidosis, acute, present on admission, resolved. - Secondary to sepsis, RADHA. 7. Hyperkalemia, acute, present on admission. Resolved - Likely secondary to significant RADHA. - Will continue to monitor BMP and correct as needed. # Rhabdomyolysis, acute, present on admission. Resolved - Patient has essentially been in bed 48-72 hours prior to admission with fall on Sunday in the shower. - Sufficient fluid resuscitation done this admission. - CPK normalized 07/30/16. # Hypertension, chronic, presume stable. - Home regimen includes clonidine 0.3 mg TID and triamterene-HCTZ 37.5/25 mg daily. - c/w triamterene-HCTZ. # Depression with anxiety, chronic, presume stable. - c/w venlafaxine 75 mg daily. # Chronic pain syndrome with opiate dependence, presume stable. - History of opiate habituation. Was being tapered down per office notes from Dr. Eli. - Will try to avoid opiates during this admission (if it can be avoided) - Could consider use of Tylenol but due to elevated transaminases would give less than 2 grams daily. # Alcohol use disorder, chronic, stable - Reported to ingest at least a bottle of wine daily. - Monitor closely for signs of withdrawal and will initiate CIWA if needed. - Supplement Thiamine daily. # Thyroid nodules, chronic, presume stable. - Recommend continued outpatient follow up. # Primary Respiratory alkalosis, not present at admission, resolved. - Patient was overbreathing on mechanical ventilation. Extubated on 2016. Currently doing well. # Acute kidney injury, present on admission. resolved. - Presumed secondary to rhabdomyolysis and poor PO intake prior to admission. - Patient received sufficient IV fluids. - Continue to monitor BMP. Disposition: 1-2 days GI Prophylaxis: Proton Pump Inhibitor VTE Prophylaxis: Sub-Q Heparin (Unfractionated), SCDs VTE Mechanical Devices: Intermittant Pneumatic CD Resuscitation Status: CPR: Attempt Resuscitation Glen Garcia Aug 03, 2016 14:53
--- NOTE | 2016-08-03 15:17 | NUR ---
Social Work: Continued d/c planning Data: PT is on day 10 of hospitalization. EMR reviewed. LIFE EDUCATOR met with pt regarding d/c plan and chemical dependency. Pt states she plans to go home with her and declines any needs at this time. LIFE EDUCATOR inquired with pt regarding her chemical dependency use, pt states she only used once and will never ever do it again, then declined to talk any further about it. Pt declined CD resources offered by LIFE EDUCATOR. No further d/c planning needs anticipated at this time. LIFE EDUCATOR will continue to follow if needs arise. Assessment: Pt who is independent at baseline. Plan: Pt will d/c home via POV when medically stable, declining CD resources. No further d/c planning needs anticipated at this time. LIFE EDUCATOR will continue to follow if needs arise. EVERT Gustafson
--- NOTE | 2016-08-03 15:18 | PROCED ---
[address] [address] EEG PATIENT: ALESSANDRA WOOTEN : 1960 MR#: [id number] ADMIT: 07/24/2016 JOB ID: [id number] DATE: 07/28/2016 HISTORY: The patient is a 56-year-old woman with a history of altered mental status. TECHNICAL DESCRIPTION: This digital EEG was recorded using 25 scalp and ear, and two EKG electrodes. It was reviewed in bipolar and referential montages following reformatting in the 10-20 [employer]de [employer] System. During the recording, the patient was noted to be awake, drowsy, and asleep. This is a much improved recording. During this recording, the background activity was noted to be symmetrical and composed of a polymorphic mixture of theta and alpha rhythms, principally still theta, approximately 7 hertz, 20-50 microvolts, and reactive to eye opening and closure. The rest of the background was composed of low voltage faster frequencies. There were no focal, lateralized or epileptiform discharges noted. It is still a relatively slow recording, however, much improved compared to the prior recording. Vertex waves and partially formed symmetrical spindles were noted consistent with stages 1 and 2 of sleep. Hyperventilation was not performed due to altered mental status. Photic stimulation from 1-30 hertz did not elicit any photic driving response. IMPRESSION: This EEG performed in the awake, drowsy, and asleep states is abnormal. The slow background activity is suggestive of mild-moderate cerebrocortical dysfunction/encephalopathy. This is nonspecific and may be seen in a wide variety of different clinical conditions including toxic, metabolic, hypoxic, inflammatory, autoimmune and infectious states. It may also be seen in the setting of sedative medications. Overall though compared to the prior electroencephalogram, there has been significant improvement. Clinical correlation is advised. MTDD
--- NOTE | 2016-08-03 18:04 | NUR ---
Pain/ambulation Pt reports neck and foot pain 7/10 on pain scale. 650 mg Tylenol Q 6 hours has kept pain tolerable. Pt was up in hallway ambulating with PT, encouraged to contact staff if would like to walk in the hallway. Frequent rounding in place, will continue to monitor.
[2016-08-04 05:33] VITALS: BP 109/73; PULSE 103; RESP 18; O2SAT 100
[2016-08-04 05:41] LABS: Mean Corpuscular Hemoglobin 31.1 pg (27.0-35.0); Mean Corpuscular Volume 95.9 fL (81-100)
--- NOTE | 2016-08-04 06:24 | NUR ---
Pain pt reports pain in neck and feet at 6-8/10, Tylenol given x2, effective, pt asleep most of night, pleasant and cooperative.
[2016-08-04 07:33] VITALS: PULSE 109; RESP 20; O2SAT 100
[2016-08-04] MEDS: Albuterol-Ipratropium 3 mL Inhalation Solution NEB SCH (07:33)
[2016-08-04] MEDS: Senna-Docusate 8.6-50 mg Tablet PO SCH (07:56)
[2016-08-04] MEDS: Heparin 5,000 Unit/mL Inj SUBQ SCH (07:57)
[2016-08-04] MEDS: Pantoprazole 40 mg ER24 Tablet PO SCH (07:57)
[2016-08-04] MEDS: Thiamine Inj 200 MG in Dextrose 5% 50 ML IV SCH (07:59)
[2016-08-04] MEDS ORDERED: 0.9% Sodium Chloride 1,000 ML IV ONE (10:50)
[2016-08-04] MEDS: Venlafaxine XR 75 mg ER24 Capsule PO SCH (11:03)
[2016-08-04 12:41] VITALS: PULSE 108; RESP 20; O2SAT 100
--- NOTE | 2016-08-04 13:55 | PCM.DIMED ---
Discharge Instructions Date of Service Aug 04, 2016 Dates of Hospitalization Jul 24, 2016 at 11:34 Discharge Diagnosis Discharge Diagnosis # Acute severe sepsis, present on admission, resolved - Criteria met at admission: tachycardia (105), fever (38.2) # Suspected acute maxillary sinusitis. presumed resolved # Possible acute bilateral pneumonia, present on admission. Presumed resolved. # Acute leukocytosis. present on admission. improved but still persisting. - will need close followup with primary care provider in coming days to ensure resolution # Acute thrombocytosis. not present on admission. ongoing - unclear etiology but presumed reactive. - will need close followup with primary care provider in coming days to ensure resolution # Acute elevated transaminases (liver enzymes), present on admission. improving but not resolved - Uncertain etiology, possibly shock liver. - will need close followup with primary care provider in coming days to ensure resolution # Acute metabolic and toxic encephalopathy, present on admission. Resolved. # Acute kidney injury, present on admission. Resolved. # Acute rhabdomyolysis, present on admission. Resolved # Acute Pancreatitis, present on admission. clinically resolved. # Acute Anion gap metabolic acidosis, present on admission. Resolved. # Acute hyperkalemia, present on admission. Resolved # Hypertension, chronic, stable. # Depression with anxiety, chronic, stable. # Chronic pain syndrome with opiate dependence, stable. # Alcohol use disorder, chronic, stable # Thyroid nodules, chronic. # Primary Respiratory alkalosis, not present at admission, resolved. Diet Low fat, Low Sodium, Heart Healthy Activity No restrictions Call your provider Fever or Chills, Shortness of breath, Bleeding, Chest pain, Vomitting, Excessive diarrhea Patient Instructions Seek immediate medical attention if any new or worsening signs or symptoms occur. Follow-up plan 1. Followup with primary care provider (Dr. Eli) in 3-5 days 2. Followup with Infectious Disease clinic (Dr. Peña) on Sunday08-16-16. Call to setup the time of appointment [address] [address] Follow-up Provider: James Eli MD Provider: Bobby Peña MD, Masoud Aug 04, 2016 13:55
--- NOTE | 2016-08-04 14:16 | PROG NOTE ---
[address] [address] PROGRESS NOTE PATIENT: ALESSANDRA WOOTEN : 1960 MR#: [id number] ADMIT: 07/24/2016 JOB ID: [id number] DATE: 08/04/2016 REASON FOR FOLLOWUP: Sinusitis, pneumonia, ventilatory dependent respiratory failure, and polysubstance abuse with pancreatitis. INTERVAL HISTORY: Overnight, the patient reports she has felt fairly well. She notes she has some headache, but when asked more specifically about that, it is actually pain from her right neck central line which is still in place. She denies fevers or chills. She has no significant shortness of breath or cough and no notable abdominal complaints today, including no abdominal pain. PHYSICAL EXAMINATION: Reveals an afebrile woman. Temp 36.6, pulse 90 to 108, respiratory rate 20. Blood pressure 109/73, saturating 100% on room air. She continues to have a bit of a flat affect but otherwise seems reasonably normal from a mental status perspective. Oral cavity is benign. No thrush or pharyngitis. Right neck IJ line also looks benign. Lungs clear anteriorly. Cardiac tones without new murmur. Abdomen soft and nontender. No hepatosplenomegaly or ascites is noted. LABORATORIES: Include white count 15,000, platelet count 668,000 which is steadily rising. Creatinine 0.93. Calcium 11.6, which is of course elevated. AST continues to drop now 54. ALT continues to drop now 57. Alk phos continues to slowly drop, now 224. Procalcitonin was 0.36 yesterday, down from a peak of 3.32. This is a 10-fold dropped. Hep C and HIV negative. Micro studies include the recent stool for C. diff which was negative. Urine culture negative. Blood cultures negative. MRSA screen negative. No new imaging has been performed in the past three days. IMPRESSION: This is a complex case of a woman with polysubstance abuse who came in with respiratory failure and required ventilator support for several days. She was diagnosed with aspiration pneumonia, and by CT scan, maxillary sinusitis. She improved steadily, but her white count remains elevated, and I think this may be in part due to her ongoing but improving hepatitis and pancreatitis. RECOMMENDATIONS: 1. Her 10-day course of Zosyn has been completed, and I see no infectious disease reason to keep her in the hospital longer, as she is anxious to be discharged. 2. This patient has stated she is eager for discharge, and Dr. Garcia agrees with me that this would not be unreasonable, but she will need outpatient close followup. I recommend she see her primary care doctor next week and me in two weeks on August 16 in the Infectious Disease Clinic to follow up on her white count, elevated LFTs, pancreatitis, and possible ongoing infection. Note that ID will be signing off.
--- NOTE | 2016-08-04 14:33 | NUR ---
Social Work: Discharge Data: Pt is on day 11 of hospitalization. EMR reviewed. D/C orders are in. Pt continued to declined SNF or HH. No d/c planning needs. MAT GAUGER will continue to follow if needs arise. Assessment: Pt who is independent at baseline. Plan: Pt will d/c home via POV today with spouse. No d/c planning needs. MAT GAUGER will continue to follow if needs arise. EVERT Gustafson
--- NOTE | 2016-08-04 15:23 | NUR ---
Discharge Pt discharged at this time. Triple lumen IJ D/Cd by IV therapy, All belongings gathered and returned to pt. VSS, No complains of increased pain. No new prescriptions given. Discharge packet reviewed with pt and spouse. Pt taken from [facility] [place] [facility]INI in wheelchair to front entrance, to be driven home in private vehicle driven by spouse
--- NOTE | 2016-08-04 18:24 | PCM.DC.MED ---
Discharge Summary Date of Service Aug 04, 2016 Dates of Hospitalization Date of Hospital Admission Jul 24, 2016 at 11:34 Date of Discharge: Aug 04, 2016 Providers: Admitting Physician: Al Del Rosario MD Primary Care Physician: James Eli MD Attending Physician: Al Del Rosario MD Diagnosis at Time of Discharge Diagnosis at Time of Discharge # Acute severe sepsis, present on admission, resolved - Criteria met at admission: tachycardia (105), fever (38.2) # Suspected acute maxillary sinusitis. presumed resolved # Possible acute bilateral pneumonia, present on admission. Presumed resolved. # Acute leukocytosis. present on admission. improved but still persisting. - will need close followup with primary care provider in coming days to ensure resolution # Acute thrombocytosis. not present on admission. ongoing - unclear etiology but presumed reactive. - will need close followup with primary care provider in coming days to ensure resolution # Acute elevated transaminases (liver enzymes), present on admission. improving but not resolved - Uncertain etiology, possibly shock liver. - will need close followup with primary care provider in coming days to ensure resolution # Acute metabolic and toxic encephalopathy, present on admission. Resolved. # Acute kidney injury, present on admission. Resolved. # Acute rhabdomyolysis, present on admission. Resolved # Acute Pancreatitis, present on admission. clinically resolved. # Acute Anion gap metabolic acidosis, present on admission. Resolved. # Acute hyperkalemia, present on admission. Resolved # Hypertension, chronic, stable. # Depression with anxiety, chronic, stable. # Chronic pain syndrome with opiate dependence, stable. # Alcohol use disorder, chronic, stable # Thyroid nodules, chronic. # Primary Respiratory alkalosis, not present at admission, resolved. Consultations 1. ID 2. Pulmonology 3. Nephrology Procedures XRay, CTs & MRIs PROCEDURE: CT ABDOMEN AND PELVIS WITHOUT CONTRAST IMPRESSION: 1. Severe bilateral lower lobe pneumonia. 2. Distended distal small bowel loops, suggestive of gastroenteritis. 3. Thickening of the transverse, descending, and sigmoid colon, with differential considerations including ischemia, infection, and inflammation. 4. Fecal impaction within the rectum. 5. Proctitis. 6. Normal appendix. 7. Findings suggestive of pancreatitis; recommend correlation with laboratory testing. 8. Nonobstructing left nephrolith. 9. Moderately distended gallbladder. If there is clinical evidence for cholecystitis, ultrasound is recommended for further assessment. Dictated by: Ambreen Patel M.D. on 07/24/2016 at 11:04 PROCEDURE: CT BRAIN WITHOUT CONTRAST IMPRESSION: 1. No acute intracranial disease process. 2. Complete opacification of the right maxillary sinus which could be inflammatory or neoplastic. Dictated by: Sheyla Chinchilla MD, PhD on 07/24/2016 at 9:18 PROCEDURE: X-RAY CHEST ONE VIEW, PORTABLE IMPRESSION: Suspect bilateral lower lobe pneumonia. Dictated by: Ana Cristina Manjarrez M.D. on 07/24/2016 at 11:00 PROCEDURE: MRI BRAIN WITHOUT CONTRAST ([id number]) IMPRESSION: Severe right maxillary sinus disease otherwise unremarkable examination as above. Dictated by: Kendrick Moran M.D. on 07/26/2016 at 18:26 PROCEDURE: X-RAY CHEST ONE VIEW, PORTABLE ([id number]) IMPRESSION: 1. Improved aeration in the left lung base with probable bibasilar residual atelectasis. Dictated by: James Bales M.D. on 07/29/2016 at 11:55 Cardiac Echo Impression Echocardiogram Report Interpretation Summary The patient was in sinus tachycardia with heart rates between 123-127 bpm during the exam. The left ventricle is normal in size. The ejection fraction is estimated to be 65-70%. The right ventricle is normal in size and function. There is mild mitral regurgitation. There is a moderate left-sided pleural effusion. No obvious valvular vegetation seen. However if clinical suspicion for endocarditis is high, consider SOPHIE. Reading Physician:AM Other Diagnostics EEG IMPRESSION: This EEG performed in the lethargic state is abnormal. The diffuse polymorphic slowing principally high amplitude delta and, at times, appearing triphasic-like, is suggestive of moderate cerebral cortical dysfunction/encephalopathy. This is nonspecific and may be seen in a wide variety of different clinical conditions, including toxic, metabolic, hypoxic, inflammatory, autoimmune, and infectious states. It may also be seen in the setting of sedative agents. There were no focal, lateralized, or epileptiform discharges noted. There were no seizures seen. If clinically indicated, I do recommend a repeat electroencephalogram if the patient is noted to become more alert or if there are any other new neurologic changes. Clinical correlation is advised. Kne Awan MD 07/26/16 653 US ABDOMEN ([id number]) IMPRESSION: 1. Common bile duct prominent measuring 9 mm. Recommend clinical correlation with LFTs. 2. Subcentimeter nonobstructing left renal calcification. 3. Iliac arteries not well seen. Dictated by: Tex Jean [facility] Interpreted: Eri Ansari MD on 07/31/2016 at 16: 51 Transcribed by: CALLI on 07/31/2016 at 16:53 Brief History As noted in H&P by Dr. Tipton: Patient is a 56 year old female with a history of HTN, anxiety and osteoarthritis with chronic narcotic use. She presented to [facility] on 07/24/16 via EMS from home. Patient is obtunded at time of H&P so history is collected from the patient's and daughter. Patient was noted to not be herself starting Sunday (07/21/16) by both her and her daughter. The daughter stated she talked to the patient on the phone and she was confused and slurring her words. The reports that the patient has been stressed out at home because they are moving. She has been doing a lot of packing and preparing for a garage sale. Sunday morning was going to be the garage sale and her got her up to prepare and a short time later found her slumped over in the shower. He put her back to bed and she slept the rest of the day. She was awake somewhat on Sunday morning but was not talking right and seemed confused. When she slept she sounded as though she were wheezing and was snoring quite loudly. When she was not improved Sunday morning, the called 911. She has not had any of her regular meds since Sunday. She has not had any food or drink since Sunday. Prior to Sunday she is reported to have been in her usual state of health. The patient's works nights and is unaware of her activities of late. The patient's daughter reports that the patient likes to get high. The patient has been abusing her gabapentin which makes her speech slurred, she becomes tremulous and is unsteady on her feet, and she gets confused. There is also reported heroin use and it seems like she may be obtaining the illegal drugs from her son who is a known drug dealer. She also may be consuming at least a bottle of wine on a daily basis. In the ED the patient is febrile (38.2) with a heart rate of 105, respiratory rate 18, blood pressure 109/51 and O2 saturation of 90% on 6L. Labs are remarkable for WBC 11.1, potassium 7.7, bicarb 12, BUN 143, creatinine 11, magnesium 3.3, procalcitonin 3.3, lipase 1274, CPK 1947. ABG showed pH 7.14, pCO2 36.7, pO2 85.7, HCO3 12.2. Central line was placed and fluid resuscitation started. Case discussed with Dr. Alvarez and patient admitted to ICU for further management of this critical illness. Hospital Course # Acute severe sepsis, present on admission, resolved - Criteria met at admission: tachycardia (105), fever (38.2), considered possible respiratory and possibly GI source - Norepinephrine ordered but never required for pressor support. - No cultures have ever returned positive, however imaging studies show maxillary sinusitis, and patient continues to have increasing leukocytosis - Blood cultures, stool PCR for C. difficile, urine cultures all reorder on and negative - Finished 10 day course of Zosyn on 08/03/16 for severe maxillary sinusitis seen in multiple imaging studies - appreciate ID consult. will f/u w/ recs # Significant leukocytosis. acute. poa. improving but persisting - f/u by PCP to ensure resolution recommended # Elevated transaminases, acute, present on admission. ongoing but improving - Uncertain etiology, possibly shock liver. Hepatitis negative. - Abdominal ultrasound shows mildly dilated common bile duct without stone blockage - f/u by PCP to ensure resolution recommended # Possible acute blood loss anemia, not present on admission, under evaluation - Patient had been hematologically stable for several days but had a drop of hemoglobin from 10.4-8.1 on 07/31/2016 - No reports of dark tarry stool or hemoglobinuria - Repeat H&H stable. # Metabolic and toxic encephalopathy, acute, present on admission, Resolved. - Concern for toxic ingestion as patient has a history of heroin use, gabapentin misuse. - Urine tox in the ED positive for meth and heroin. # Possible Bilateral pneumonia, acute, present on admission, Resolved. - O2 supplementation to keep O2 saturations 92-96%. - DuoNeb available QID. Albuterol neb available Q2 PRN. # Pancreatitis, acute, present on admission. clinically resolved. # Anion gap metabolic acidosis, acute, present on admission, resolved. - Secondary to sepsis, RADHA. # Hyperkalemia, acute, present on admission. Resolved # Rhabdomyolysis, acute, present on admission. Resolved - Patient essentially been in bed 48-72 hours prior to admission with fall on Sunday in the shower. - Sufficient fluid resuscitation done this admission. - CPK normalized 07/30/16. # Hypertension, chronic, stable. - Home regimen includes clonidine 0.3 mg TID and triamterene-HCTZ 37.5/25 mg daily. # Depression with anxiety, chronic, presume stable. - c/w venlafaxine 75 mg daily. # Chronic pain syndrome with opiate dependence, presume stable. - History of opiate habituation. Was being tapered down per office notes from Dr. Eli. - Avoided opiates during this admission # Alcohol use disorder, chronic, stable - Reported to ingest at least a bottle of wine daily. - no sign of withdrawal - Supplement Thiamine daily. # Thyroid nodules, chronic, presume stable. - Recommend continued outpatient follow up. # Primary Respiratory alkalosis, not present at admission, resolved. - Patient was overbreathing on mechanical ventilation. Extubated on 2016. Currently doing well. # Acute kidney injury, present on admission. resolved. - Presumed secondary to rhabdomyolysis and poor PO intake prior to admission. - Patient received sufficient IV fluids. by day of d/c lungs CTA bilat. abdomen soft, nt, nd, +bs. awake, alert Ox3 Exam Vital Signs (Last) Date Time Temp Pulse Resp B/P Pulse Ox O2 Delivery O2 Flow Rate FiO2 08/04/16 12:41 108 20 100 Room Air 08/04/16 05:33 36.6 109/73 07/29/16 11:55 2.00 Test 07/24/16 09:00 07/24/16 09:30 07/24/16 10:39 07/24/16 12:15 Pro-B-Type Natriuretic Peptide 4866pg/mL (0-249) Salicylates Level < 3.0ug/mL (30-250) Acetaminophen Level < 15.0ug/mL Rx (10-25) Gabapentin Level 35.6ug/mL (4.0-16.0) Alcohols < 10mg/dL (0-10) Urine Random Creatinine 255mg/dL (15-278) Urine Random Total Protein 97mg/dL (0-15) Urine Random Sodium 58mEq/L CSF Appearance Clear (CLEAR) CSF Color Colorless (COLORLESS) CSF WBC 0/mm3 (0-5) CSF RBC 92/mm3 CSF Mononuclear WBCs % CSF Polynuclear WBCs % CSF Other Cells CSF Glucose 67mg/dL (45-90) CSF Lactic Acid 22mg/dL (10-22) CSF Total Protein 40mg/dL (15-45) Lactate Dehydrogenase 576U/L (100-190) Ethylene Glycol None detectedmg/dL Test 07/24/16 12:45 07/25/16 05:20 07/25/16 15:15 07/26/16 05:10 Urine Legionella pneumophilia Ag Negative (Negative) Osmolality 334 (275-300) Triglycerides Level 83mg/dL (0-149) Cholesterol Level 107mg/dL (100-199) LDL Cholesterol, Calculated 78.400mg/dL (0-99) VLDL Cholesterol 16.600mg/dL HDL Cholesterol 12mg/dL (>39) Cholesterol/HDL Ratio 8.92 (0.0-4.4) Anti-Nuclear Antibody Screen Negative (Negative) Hepatitis A IgM Antibody Negative (Negative) Hepatitis B Surface Antigen Negative (Negative) Hepatitis B Core IgM Antibody Negative (Negative) Hepatitis C Antibody <0.1s/co ratio (0.0-0.9) Hepatitis C Comment Comment (.) Methyl Alcohol Level Negative% (0.000-0.010) HIV (1&2) Ag and Ab, 4th Generation Non reactive (Non Reactive) Band Neutrophils % 7% (1-5) Metamyelocytes % 1% (0-0) Lactic Acid Level 1.7mmol/L (0.4-2.0) Test 07/27/16 05:37 07/28/16 04:40 07/29/16 13:54 07/31/16 03:20 Prothrombin Time 11.2sec (8.1-12.5) Prothromb Time International Ratio 1.05ratio Erythrocyte Sedimentation Rate 105mm/hr (0-40) C-Reactive Protein 10.6mg/dL (0.0-0.5) Urine Color Yellow (YELLOW) Urine Appearance Hazy (CLEAR,HAZY) Urine pH 7.0 (5.0-8.0) Urine Specific [place] 1.020 (1.003-1.035) Urine Protein 100mg/dL (NEG,TRACE) Urine Glucose (UA) Negativemg/dL (NEGATIVE) Urine Ketones Negativemg/dL (NEGATIVE) Urine Occult Blood Moderate (NEGATIVE) Urine Nitrite Negative (NEGATIVE) Urine Bilirubin Negative (NEGATIVE) Urine Urobilinogen Normalmg/dL (NORMAL) Urine Leukocyte Esterase Negative (NEGATIVE) Urine RBC 3-10/hpf (0-2) Urine WBC 6-10/hpf (0-5) Urine Epithelial Cells Moderate/hpf (NONE-MOD) Urine Crystals None seen (NONE SEEN) Urine Bacteria Few/hpf (NONE-FEW) Urine Hyaline Casts 5/20/lpf (NONE) Urine Granular Casts None seen (NONE SEEN) Urine Waxy Casts None seen (NONE SEEN) Urine Red Blood Cell Casts None seen (NONE SEEN) Urine White Blood Cell Casts None seen (NONE SEEN) Urine Mucus Present (None Seen) Urine Trichomonas None seen (NONE SEEN) Urine Yeast None (NONE SEEN) Urinalysis Comment Amorphous sediment Urine Culture Reflexed Indicated Reticulocyte Count,Calculated 4.0% (0.6-2.6) Phosphorus Level 2.0mg/dL (2.5-4.9) Magnesium Level 1.5mg/dL (1.6-2.6) Total Creatine Kinase 31U/L (21-215) Test 07/31/16 10:50 08/02/16 07:20 08/03/16 05:45 08/04/16 05:20 Iron Level 27ug/dL (35-150) Total Iron Binding Capacity 159ug/dL (250-450) Percent Iron Saturation 17%sat (15-50) Unsaturated Iron Binding 131.6ug/dL Ferritin 934ng/mL (13-150) Gamma Glutamyl Transpeptidase 266IU/L (0-60) Lipase 150U/L (13-60) Neutrophils (%) (Auto) 82.6% (40-74) Lymphocytes (%) (Auto) 7.2% (14-46) Monocytes (%) (Auto) 7.0% (4-12) Eosinophils (%) (Auto) 2.0% (0-5) Basophils (%) (Auto) 0.2% (0-3) Procalcitonin 0.36ng/mL (0.00-0.08) White Blood Count 15.4th/mm3 (3.8-10.1) Red Blood Count 3.41mil/mm3 (3.90-5.20) Hemoglobin 10.6g/dL (12.0-15.6) Hematocrit 32.7% (35.0-46.0) Mean Corpuscular Volume 95.9fL (81-100) Mean Corpuscular Hemoglobin 31.1pg (27.0-35.0) Mean Corpuscular Hemoglobin Concent 32.4% (32.0-37.0) Red Cell Distribution Width 15.3% (12.3-15.4) Platelet Count 688bil/L (150-400) Total Bilirubin 0.3mg/dL (0.0-1.2) Aspartate Amino Transf (AST/SGOT) 54U/L (0-50) Alanine Aminotransferase (ALT/SGPT) 57U/L (0-32) Alkaline Phosphatase 224U/L (25-150) Total Protein 7.3g/dL (6.4-8.4) Albumin 3.5g/dL (3.4-5.0) Test 08/04/16 12:00 Sodium Level 131mEq/L (134-144) Potassium Level 4.7mEq/L (3.5-5.2) Chloride Level 97mEq/L (97-108) Carbon Dioxide Level 18mmol/L (18-29) Blood Urea Nitrogen 18mg/dL (6-24) Creatinine 0.93mg/dL (0.57-1.00) Estimat Glomerular Filtration Rate 90mL/min (>59) Glucose Level 97mg/dL (60-99) Calcium Level 11.6mg/dL (8.5-10.1) Discharge Medications Discharge Medications Clonidine (Clonidine) 0.3 Mg Tablet 0.3 MG PO TID (Reported) Gabapentin (Gabapentin) 600 Mg Tablet 1,800 MG PO HS (Reported) Ketoconazole (Ketoconazole) 15 Gm Cream..g. 15 GM TP BID (Reported) Meloxicam (Meloxicam) 15 Mg Tablet 15 MG PO DAILY (Reported) Terbinafine (Lamisil) 250 Mg Tablet 250 MG PO DAILY (Reported) Triamcinolone Acet (Triamcinolone Acetonide Cream) 1 Applic/0.25 Gm Cr 1 APPLIC EXT BID (Reported) Triamterene/HCTZ 37.5-25 mg (Triamterene/HCTZ 37.5-25 mg) 1 Each Capsule 1 CAPSULE PO DAILY (Reported) Venlafaxine (Venlafaxine) 75 Mg Tablet 75 MG PO BID (Reported) As needed Cyclobenzaprine (Cyclobenzaprine) 10 Mg Tablet 10 MG PO HS PRN PRN Spasm ( Reported) Ibuprofen (Ibuprofen) 200 Mg Capsule 200 MG PO DAILY PRN PRN For Pain (Reported ) Followup Plan Disposition: Home Follow-up plan 1. Followup with primary care provider (Dr. Eli) in 3-5 days 2. Followup with Infectious Disease clinic (Dr. Peña) on Sunday08-16-16. Call to setup the time of appointment [address] [address] Discharge Diet: Low fat, Low Sodium, Heart Healthy Discharge Activity: No restrictions Patient Instructions Seek immediate medical attention if any new or worsening signs or symptoms occur. Follow-up Provider: James Eli MD Provider: Bobby Peña MD Time spent 35 min copies to: James Eli MD; Bobby Peña MD, Masoud Aug 04, 2016 18:23
== END 2016-08-04 15:24 | disposition home or self-care (01) | DRG 720 ==
LOC: SED 08:56 → CCU 11:34 → PCC 07-29 11:59 → MPC 08-01 00:18
PROVIDERS: ADMIT Internal Medicine; ATTEND Internal Medicine
PROC: 5A1945Z Respiratory Ventilation, 24-96 Consecutive Hours (ICD-10-PCS; principal; 2016-07-24)
PROC: 009U3ZX Drainage of Spinal Canal, Percutaneous Approach, Diagnostic (ICD-10-PCS; 2016-07-24)
PROC: 4A033R1 Measurement of Arterial Saturation, Peripheral, Percutaneous Approach (ICD-10-PCS; 2016-07-24)
DX: A41.9 Sepsis, unspecified organism (principal); J69.0 Pneumonitis due to inhalation of food and vomit; N17.0 Acute kidney failure with tubular necrosis; J80 Acute respiratory distress syndrome; G92 Toxic encephalopathy; K85.90 Acute pancreatitis without necrosis or infection, unspecified; E87.2 Acidosis; M62.82 Rhabdomyolysis; F11.20 Opioid dependence, uncomplicated; R65.20 Severe sepsis without septic shock; E87.5 Hyperkalemia; I10 Essential (primary) hypertension; F41.8 Other specified anxiety disorders; G89.4 Chronic pain syndrome; J01.00 Acute maxillary sinusitis, unspecified; F10.20 Alcohol dependence, uncomplicated; D47.3 Essential (hemorrhagic) thrombocythemia

== ENCOUNTER → 2017-02-01 | Day surgery (SDC) | payer OTHER ==
[~2017-02-01] VITALS: Ht 167.6 cm; Wt 66.2 kg
[~2017-02-01] MED LIST changes: +0.9% Sodium Chloride 1,000 ML IV ONE; +0.9% Sodium Chloride 1,000 ML IV SCH; +CLON0.3T PO; +CYCL10TA9 PO; +GABA600T2 PO; +IBUP200C PO; +KEN25CR EXT; +KTC2C15 TP; +MELO-253 PO; -Rocuronium 10 mg/mL 5 mL Inj ONE; +Sodium Chloride LOK Flush 10 mL Syringe IV PRN; +TERB250T4 PO; +TRIA1CAP5 PO; +VENL75TA3 PO; +fentaNYL-PF 50 mCg/mL 2 mL Inj IVPUSH PRN; +fentaNYL-PF 50 mCg/mL 2 mL Inj ONE
[2017-02-01 11:08] VITALS: BP 147/95; PULSE 64; RESP 14; O2SAT 100
--- NOTE | 2017-02-01 11:50 | PCM.ENDCOL ---
Colonoscopy Date of Service: Feb 01, 2017 Physician Jovanni Kent MD Pre Procedure Diagnosis: Abdominal pain and diarrhea Post Procedure Dx & Findings: High-grade stenosis of the rectosigmoid junction Procedure Colonoscopy PROCEDURE IN DETAIL: Prep fair After unremarkable rectal examination the Olympus video colonoscope was inserted patient's anal canal and was advanced to the rectosigmoid junction. In the rectosigmoid junction, STOOLS are noted. These are all liquid. Suction. Insufflation done. In at the rectosigmoid junction, there was a narrowing and it did not appear that there is enough improvement for the scope to go through. Biopsy obtained.. Biopsies were done on the lesion. In the rectum retroflexion was done which showed hemorrhoids. Anal canal was inspected carefully on the way out and hemorrhoids noted. Impression High-grade stenosis of the rectosigmoid junction Hemorrhoids Recommendation Follow up in GI clinic next week. Await biopsy. Low residual diet. Presedation Assessment Risks and Benefits Informed consent was obtained from the patient after all risks and benefits including but not limited to drug reaction, infection, pain, bleeding, perforation, as well as alternatives were discussed. Patient monitoring Continuous pulse oximetry, cardiac monitoring, blood pressure monitoring, IV access, and oxygen at 2L per nasal cannula. Periprocedural Fentanyl: Fentanyl 150mcg Incrementally Midazolam: Midazolam 7mg Incrementally Complications There were no periprocedural complications identified. Post Procedure Plan Post Procedure Recommendations 1. Restrict activities today. 2. Resume normal activities in the morning. 3. Resume medications. 4. Patient informed of normal post procedure side effects as bloating, drowsiness, blood streaking in the stool. 5. average risk CRCS. If colon polyps come back as: -Hyperplastic- can repeat colonoscopy in 10 years -Tubular adenoma- repeat colonoscopy in 5 years -Tubulovillous/villous adenoma- repeat colonoscopy in 3 years -If any dysplasia- return to clinic as soon as possible 6. Please don't hesitate to call me with any questions. Jovanni Kent MD Feb 01, 2017 11:50
[2017-02-01 11:59] VITALS: BP 142/89; PULSE 78; RESP 16; O2SAT 100
[2017-02-01 12:13] VITALS: BP 149/96; PULSE 80; RESP 12; O2SAT 100
--- NOTE | 2017-02-02 13:48 | PATH ---
SURGICAL PATHOLOGY Attending Physician:Jovanni Kent M.D. CASE STATUS: Signed Out PATIENT NAME: ALESSANDRA WOOTEN PID: [id number] : 1960 DATE COLLECTED:02/01/2017 19:32 SPECIMEN: Rectum, Biopsy CLINICAL HISTORY: 1). RECTAL BIOPSY FINAL DIAGNOSIS: Rectum, Biopsy: Ulcerated colonic mucosa. No viral cytopathic effect identified. Negative for dysplasia or malignancy. ICD10: R10.9 R19.7 NOTE: The histologic findings in the rectal biopsy raise a differential diagnosis including infection, drug/toxin-induced injury, and, in the appropriate clinical setting, idiopathic inflammatory bowel disease. GROSS DESCRIPTION: The specimen is received in one formalin filled container labeled with the patient's name, sublabeled "rectal" and consists of 2 portions of tissue which aggregate to 0.2 x 0.2 x 0.2 CM. The specimen is entirely submitted in one cassette. 02/01/2017DC ICD-9 CODES: CPT CODES: 1: 88537 Electronically Signed Out Juan Melchor MD, Ph.D. [facility] [address], [place] [address] Technical component performed at [facility], [address] [place] [address] Ave[address], [place], [address]
== END | disposition home or self-care (01) ==
LOC: END 00:42
PROVIDERS: ATTEND Internal Medicine
DX: K56.69 Other intestinal obstruction (principal); K64.9 Unspecified hemorrhoids; R19.7 Diarrhea, unspecified; R10.84 Generalized abdominal pain; Z80.0 Family history of malignant neoplasm of digestive organs; Z79.891 Long term (current) use of opiate analgesic
CPT/HCPCS: 45380; 88305; 99152; J2250; J3010; J7030